=== PATIENT | male | born 1975 | race Caucasian/White ===

== ENCOUNTER 2019-09-23 13:24 | Inpatient (IN) | payer OTHER, SELFPAY ==
[2019-09-23] VITALS (8 sets, daily range): BP systolic 107–169; BP diastolic 88–104; PULSE 107–118; RESP 18–20; TEMP 36.8–37.8; O2SAT 94–99; BMI 30.3
--- NOTE | ~2019-09-23 | XR_ITS ---
EXAMINATION: XR chest 2V EXAM DATE: 09/23/2019 14:38 INDICATION: Shortness of breath. Mid chest pain. TECHNIQUE: Frontal and lateral projections of the chest obtained and reviewed. Comparison is made to prior examination from 04/25/2018. FINDINGS: The lungs are clear. There are no pleural effusions. The cardiomediastinal silhouette is within normal limits. There is no pneumothorax suspected. The bones and soft tissues are unremarkab le. IMPRESSION: No acute cardiopulmonary findings. Reviewed, dictated and finalized at location A.
--- NOTE | ~2019-09-23 | CT_ITS ---
EXAMINATION: CTA chest PE abdomen pel DATE: 09/23/2019 18:59 INDICATION: Epigastric abdominal pain TECHNIQUE: Computed tomography angiography (CTA) of the chest was performed with 100 mL Omnipaque-350 intravenous contrast timed to evaluate the pulmonary arteries. Subsequent postcontrast images of the abdomen and pelvis are obtained. Of note, the chest was scanned twice for evaluation of the pulmonar y arteries. Coronal maximum intensity projection 3D-reconstructions were created by the technologist. The dose-length product (DLP) was 1953.87 mGy-cm. Automated exposure control and iterative reconstru ction technique were employed. COMPARISON: None. FINDINGS: CTA CHEST: The pulmonary arteries are moderately well opacified. No pulmonary embolism is identified. The lungs are free of acute opacities. There is no pleural effusion or pneumothorax. No pathological ly enlarged thoracic lymph nodes are identified. The heart size is normal. ABDOMEN/PELVIS CT: The liver is diffusely low in attenuation when compared with the spleen, consisten t with hepatic steatosis. The spleen, pancreas, gallbladder, and adrenal glands are normal. The kidne ys are unremarkable. No pathologically enlarged abdominal or pelvic lymph nodes are identified. There is no free intraperitoneal gas or evidence of bowel obstruction. The appendix is normal. IMPRESSION: 1. No evidence of pulmonary embolism or acute cardiopulmonary abnormality. 2. Diffuse hepatic steatosis. No CT correlate for epigastric abdominal pain. Reviewed, dictated and finalized at location A.
--- NOTE | 2019-09-23 13:33 | ECG_ITS ---
Measurements Intervals [place] Rate: 109 P: 38 WA: 154 QRS: -41 QRSD: 89 T: 24 QT: 336 QTc: 453 Interpretive Statements SINUS TACHYCARDIA BORDERLINE R WAVE PROGRESSION, ANTERIOR LEADS INFERIOR INFARCT, AGE INDETERMINATE BASELINE WANDER- AVR, AVF, V1-V2 ABNORMAL ECG Electronically Signed On 09-23-2019 14:12:38 CDT by Tyler Roger D.O.
[2019-09-23 13:57] LABS: Basophils Percent Auto 0.2 % (0.2-1.2); Hematocrit 44.9 % (42.0-52.0); Hemoglobin 15.8 g/dL (14.0-18.0); Immature Granulocyte Absolute 0.06 K/mm3 (0.00-0.031); Immature Granulocyte Percent A 0.4 % (0-0.5); Immature Platelet Fraction Pct 3.6 % (0.9-11.2); Lymphocytes Absolute Auto 0.57 K/mm3 (0.9-3.2); Lymphocytes Percent Auto 4.1 % (18.3-44.2); Mean Corpuscular HGB Conc 35.2 g/dl (32-36); Mean Corpuscular Hemoglobin 31.4 pg (26-34); Mean Corpuscular Volume 89.3 fl (80-100); Mean Platelet Volume 8.8 fl (7.4-10.4); Monocytes Absolute Auto 1.7 K/mm3 (0.1-0.6); Monocytes Percent Auto 12.3 % (2.6-8.5); Neutrophils Absolute Auto 11.4 K/mm3 (1.3-6.7); Platelet Count Result 61 k/mm3 (150-375); Red Blood Count 5.03 M/mm3 (4.6-6.20); Red Cell Distribution Width 14.4 % (11.5-14.5); White Blood Count 13.8 K/mm3 (4.5-10.0)
[2019-09-23 14:06] LABS: Partial Thromboplastin Time 23.9 SECONDS (22.3-36.8); Prothrombin Time 12.8 Seconds (11.1-14.7)
[2019-09-23 14:12] LABS: Blood Urea Nitrogen 8 mg/dL (9-20); Calcium 9.1 mg/dL (8.4-10.2); Carbon Dioxide 29 mmol/L (22-30); Chloride 90 mmol/L (98-107); Estimated CRCL calculation 149 ml/min; Estimated Glomerular Filt Rate > 60; Glucose 153 mg/dL (75-110); Sodium 133 mmol/L (137-145)
[2019-09-23 14:24] LABS: Troponin I < 0.012 ng/mL (0.000-0.034)
--- NOTE | 2019-09-23 17:41 | ED.CHESTPAIN ---
HPI - Chest Pain General Chief Complaint: Chest Pain <Pepper Guallpa MD - Last Filed: 09/28/19 06:58> Stated Complaint: chest pain, hand cramps <Pepper Guallpa MD - Last Filed: 09/28/19 06:58> Time Seen by Provider: 09/23/19 17:29 <Pepper Guallpa MD - Last Filed: 09/28/19 06:58> Source: patient <Pepper Guallpa MD - Last Filed: 09/28/19 06:58> Mode of arrival: ambulatory <Pepper Guallpa MD - Last Filed: 09/28/19 06:58> Limitations: no limitations <Pepper Guallpa MD - Last Filed: 09/28/19 06:58> History of Present Illness HPI narrative: This patient is a 43 year old male with history of anxiety, hypertension and alcohol abuse who presents for evaluation chest pain. Patient states last night around midnight he develop substernal chest pain. He states this pain has been constant, and he also is having tremors and cramping to his arms. He also reports nausea, vomiting and diarrhea. He has intermittent sob. He denies cough or fever. He admits to drinking heavily and he last drank alcohol this morning. He has history of binging and quitting. He started drinking heavily again in the beginning of the month but he recently started trying to wean himself off. <Pepper Guallpa MD - Last Filed: 09/28/19 06:58> MD complaint: chest pain <Pepper Guallpa MD - Last Filed: 09/28/19 06:58> Onset (ago): hour(s) (17) <Pepper Guallpa MD - Last Filed: 09/28/19 06:58> Timing of current episode: constant <Pepper Guallpa MD - Last Filed: 09/28/19 06:58> Pain location: substernal <Pepper Guallpa MD - Last Filed: 09/28/19 06:58> Pain radiation: none <Pepper Guallpa MD - Last Filed: 09/28/19 06:58> Related Data Allergies/Adverse Reactions: Allergies Allergy/AdvReac Type Severity Reaction Status Date / Time latex Allergy Intermediate Rash Verified 02/09/18 10:27 <Pepper Guallpa MD - Last Filed: 09/28/19 06:58> Review of Systems Review of Systems: All systems reviewed & are unremarkable except as noted in HPI and below <Pepper Guallpa MD - Last Filed: 09/28/19 06:58> Constitutional: Constitutional: Denies chills, Reports fatigue and Denies fever(s) <Pepper Guallpa MD - Last Filed: 09/28/19 06:58> ENT: Reports sore throat <Pepper Guallpa MD - Last Filed: 09/28/19 06:58> Cardiovascular: Cardiovascular: Reports chest pain <Pepper Guallpa MD - Last Filed: 09/28/19 06:58> Respiratory: Respiratory: Denies cough, Reports dyspnea and Denies wheezing <Pepper Guallpa MD - Last Filed: 09/28/19 06:58> Gastrointestinal: Gastrointestinal: Reports abdominal pain, Denies diarrhea, Reports nausea and Reports vomiting <Pepper Guallpa MD - Last Filed: 09/28/19 06:58> Psychiatric: Psychiatric: Reports anxiety <Pepper Guallpa MD - Last Filed: 09/28/19 06:58> Endocrine: Endocrine: Reports fatigue <Pepper Guallpa MD - Last Filed: 09/28/19 06:58> [facility] Past Medical History Medical History: Medical History Anxiety Hyperlipidemia Hypertension Lipoma of back <Pepper Guallpa MD - Last Filed: 09/28/19 06:58> Family History Family History: Family History (Updated 09/24/19 @ 08:47 by Bernabe Sheehan MD) Father FH: CABG (coronary artery bypass surgery) <Pepper Guallpa MD - Last Filed: 09/28/19 06:58> Social History Social History: Social History Smoking packs per day: 1 Smoking cigarettes per day: 20.0 Years smoked: 30 Smoking pack-years: 30.00 Smoking status: Current every day smoker Tobacco type: cigarettes Alcohol intake: current Drinks per week: 50 Alcohol use details: daily Substance use: never Gender identity (if verbalized by the patient): Male Spiritual care concerns: No <Pepper Guallpa MD - Last Filed: 09/28/19 06:58> Exam Const:
[2019-09-23 18:01] LABS: Alanine Aminotransferase 96 U/L (4-50); Albumin Level 4.8 g/dL (3.5-5.1); Alkaline Phosphatase 116 U/L (38-126); Aspartate Amino Transferase 102 U/L (17-59); Bilirubin,Total 1.1 mg/dL (0.2-1.3); Lipase 825 U/L (23-300); Magnesium 1.8 mg/dL (1.6-2.3)
[2019-09-23] MEDS: LACTATED RINGERS 1,000 ML 999 ML IV CONT (18:01)
[2019-09-23 18:03] LABS: Ethanol 93 mg/dL (<10)
[2019-09-23 18:16] LABS: Troponin I 0.012 ng/mL (0.000-0.034)
[2019-09-23] MEDS: ASPIRIN 81 MG CHEWABLE TABLET 324 MG PO (18:17)
[2019-09-23 18:25] LABS: Lactic Acid Reflex 1.5 mmol/L (0.7-2.1)
[2019-09-23 18:32] LABS: Add Urine Microscopic? YES; Appearance Urine Clear (Clear); Bilirubin Urine Negative (Negative); Blood Urine 1+ (Negative); Color Urine Yellow (Yellow); Glucose Urine UA Negative (Negative); Ketones Urine 1+ mg/dL (Negative); Leukocyte Esterase Ur Negative LEU/UL (Negative); Nitrate Urine Negative (Negative); Protein Urine 2+ mg/dL (Negative); Specific Grav Ur 1.014 (1.001-1.035); WBC Urine 0-3 /hpf
--- NOTE | 2019-09-23 19:29 | PC.NURSE ---
report taken from nadeem an at this time.
--- NOTE | 2019-09-23 20:10 | PC.NURSE ---
pt reports that he has not had his home meds in a long time states stopped seeing pcp.
--- NOTE | 2019-09-23 20:41 | ECG_ITS ---
Measurements Intervals [place] Rate: 101 P: -27 [place]: 131 QRS: -49 QRSD: 94 T: 7 QT: 358 QTc: 465 Interpretive Statements SINUS TACHYCARDIA LEFT AXIS DEVIATION BORDERLINE R WAVE PROGRESSION, ANTERIOR LEADS BORDERLINE T WAVE ABNORMALITY- INFERIOR LEADS BORDERLINE ECG Electronically Signed On 09-24-2019 10:46:27 CDT by Tyler Roger D.O.
--- NOTE | 2019-09-23 20:43 | PM.IMHP ---
H&P: HPI History of Present Illness Chief complaint: alcohol withdrawal Narrative: This is a 43 year old male who is known to have chronic alcohol abuse and HTN and presented to the hospital with a complaint of midsternal chest pain and withdrawal symptoms including shakiness, anxiety, diaphoresis, and nausea. He admits to drinking 1 pint of hard liquor daily as well as a six pack of beer. His last drink was this morning. He denies any fever, cough, wheeze, sore throat, abdominal pain, dysuria, hematuria, or rectal bleeding. Tonight in the ER the patient has been found to be very shaky and anxious. He was treated with 20 mg of IV valium and still is very shaky and anxious. He denies any visual or auditory hallucinations at this time. The patient was evaluated in the ER tonight and had a CTA chest/abd/pelvis done which demonstrated no evidence of pulmonary embolism or acute cardiopulmonary abnormality and diffuse hepatic steatosis. His first two troponins have been negative and his Lipase came back at 825. The patient verbalized to me that he would like to quit drinking alcohol. No other complaints. Review of Systems Review of Systems: All systems reviewed & are unremarkable except as noted in HPI and below PMFSH Past Medical History Medical History Anxiety Hyperlipidemia Hypertension Lipoma of back Social History Social History Smoking packs per day: 1 Smoking cigarettes per day: 20.0 Years smoked: 30 Smoking pack-years: 30.00 Smoking status: Current every day smoker Tobacco type: cigarettes Alcohol intake: current Drinks per week: 50 Alcohol use details: daily Substance use: never Gender identity (if verbalized by the patient): Male Spiritual care concerns: No Meds Home Medications and Allergies Home Medications Medication Instructions Recorded Confirmed Type No Home Medications 09/23/19 09/23/19 History Allergies Allergy/AdvReac Type Severity Reaction Status Date / Time latex Allergy Intermediate Rash Verified 02/09/18 10:27 Vital Signs Vital Signs - 24 hr 09/23/19 13:30 09/23/19 19:14 09/23/19 20:02 Temperature 37.8 C H Pulse Rate 118 H 111 H 112 H Respiratory Rate 20 20 18 Blood Pressure 149/104 H 169/93 H 156/91 H Pulse Oximetry 97 97 94 Exam Const: General: cooperative, alert, awake, in distress (Visible tremors++ ) moderate and diaphoretic Nutritional Appearance: well nourished Orientation/consciousness: patient oriented x3 HENMT: Head: normal to inspection General nose exam: Normal external nose present Face and sinus: normal facial exam Mouth: Yes Normal oral and palatal mucosa present and Yes oropharynx normal Eyes: Pupils: Equal, round and reactive pupils present EOM: EOMs intact bilaterally Neck: Neck: supple and no JVD Thyroid: thyroid normal Lymphatic: lymphadenopathy not noted Resp: Effort & Inspection: normal respiratory effort Auscultation: clear to auscultation bilaterally Cardio: Rate: regular rate Rhythm: regular rhythm Heart sounds: no murmurs GI: Inspection: normal to inspection Auscultation: normal bowel sounds Skin: General skin exam: normal color and no rashes or lesions noted Neuro: General: patient oriented x3 and other (Visible tremors++ ) Cranial nerves: Yes CN's II-XII intact bilaterally and Yes Equal, round and reactive pupils present Speech: normal speech Motor exam (neuro): 5/5 motor strength present throughout Sensory Exam: normal sensation Extrem: General: normal to inspection and no edema Psych: Mental Status: mental status grossly normal Affect: Anxious affect present H&P: Results Labs Labs: Short CBC 09/23/19 Range/Units 13:45 WBC 13.8 H (4.5-10.0) K/mm3 Hgb 15.8 (14.0-18.0) g/dL Hct 44.9 (42.0-52.0) % Plt Count 61 L D (150-375) k/mm3 BMP 09/23/19 13:45
[2019-09-23 21:18] LABS: Troponin I 0.021 ng/mL (0.000-0.034)
--- NOTE | 2019-09-23 21:54 | ADMGEN ---
This patient, Carmelo Seymour, was admitted to IMU Room 205-02. Patient/family oriented to hospital policies and general routines including ID bracelet, bed and alarms, visiting hours, pain management, procedures, bathroom and other care routines, personal items, smoking policy, room service/diet, and visiting hours. Valuables list has been completed. Information on how to activate the Rapid Response Team has been discussed. Patient/Family are encouraged to report perceived risks to care and to ask questions if they do not understand what they are told or what they should do. REPORT FROM [facility] ARRIVED AT [id number] 09/23/19
[2019-09-23] MEDS: chlordiazePOXIDE 25 MG CAPSULE 50 MG PO (22:12)
[2019-09-23] MEDS: SODIUM CHLORIDE 0.9% IV 1,000 ML 125 ML IV CONT (22:13)
[2019-09-23 23:54] LABS: Glucose Point of Care 115 (65-105)
[2019-09-24] VITALS (15 sets, daily range): BP systolic 134–157; BP diastolic 83–96; PULSE 75–106; RESP 12–20; TEMP 36.4–37.6; O2SAT 97–99
--- NOTE | 2019-09-24 | ECHO_ITS ---
Patient Info Name: Carmelo Seymour Age: 43 years : 1975 Gender: Male Accession #: $[id number]$ Ht: 69 in Wt: 205 lbs BSA: 2.15 m2 HR: 102 bpm BP: 134 / 86 mmHg Heart Rhythm: Sinus Rhythm Technical Quality: Good Exam Date: 09/24/2019 10:16 AM Exam Location: [facility] Card Pulmonary Patient Status: Inpatient Admit Date: 09/23/2019 Stock Order Lister: Glen Izaguirre, MADELIN, RT Exam Type: CA echo doppler color flow Study Info Indications R07.89 - Other chest pain Complete two-dimensional, color flow and Doppler transthoracic echocardiogram is performed. Summary 1. Left ventricular chamber dimension is normal. 2. Left ventricular systolic function is normal, estimated at 60-65%. 3. There is mildly increased left ventricular wall thickness. 4. Left ventricular septal wall motion is normal. 5. The left ventricular diastolic function is grade I diastolic dysfunction. 6. There is mild mitral valve regurgitation. 7. There is mild tricuspid valve regurgitation. Left Ventricle Left ventricular chamber dimension is normal. Left ventricular systolic function is normal, estimated at 60-65%. There is mildly increased left ventricular wall thickness. Left ventricular septal wall motion is normal. The left ventricular diastolic function is grade I diastolic dysfunction. Right Ventricle Right ventricular chamber dimension is normal. Right ventricular systolic function is normal. Left Atria Left atrial chamber dimension is normal. Right Atria Right atrial chamber dimension is normal. Atrial Septum Intact interatrial septum visualized by color flow imaging. Aortic Valve The aortic valve is trileaflet. There is no aortic valve sclerosis. There is no aortic valve stenosis. There is trace aortic valve regurgitation. Pulmonic Valve The pulmonic valve is normal. There is no pulmonic valve stenosis. There is trace pulmonic regurgitation. Mitral Valve The mitral valve has normal leaflets. There is no mitral valve stenosis. There is mild mitral valve regurgitation. Tricuspid Valve The tricuspid valve leaflets are normal. There is no significant tricuspid valve stenosis. There is mild tricuspid valve regurgitation. Pericardium/Pleural The pericardium appears normal. There is no pericardial effusion. Inferior Vena Cava Normal inferior vena cava with >50% collapse upon inspiration consistent with normal right atrial pressure, 5 mmHg. Aorta The aortic root size at the sinus of Valsalva is normal. The prox ascending aorta size is normal. Left Ventricular Outflow Tract Name Value Normal LVOT 2D LVOT Diameter 2.5 cm LVOT Doppler LVOT Peak Gradient 2 mmHg LVOT Mean Gradient 2 mmHg LVOT VTI 15 cm LVOT VTI/AV VTI Ratio 1.2 LVOT Stroke Volume 70 ml LVOT CO 6.8 l/min LVOT CI 3.2 l/min/m2 Pulmonic Valve Name
[2019-09-24] MEDS: chlordiazePOXIDE 25 MG CAPSULE 50 MG PO ×4 (04:16→20:32)
[2019-09-24 04:50] LABS: Basophils Percent Auto 0.2 % (0.2-1.2); Eosinophils Percent Auto 0.2 % (0-4.4); Hematocrit 42.3 % (42.0-52.0); Hemoglobin 14.5 g/dL (14.0-18.0); Immature Granulocyte Absolute 0.08 K/mm3 (0.00-0.031); Immature Granulocyte Percent A 0.7 % (0-0.5); Immature Platelet Fraction Pct 5.2 % (0.9-11.2); Lymphocytes Absolute Auto 0.84 K/mm3 (0.9-3.2); Lymphocytes Percent Auto 7.2 % (18.3-44.2); Mean Corpuscular HGB Conc 34.3 g/dl (32-36); Mean Corpuscular Hemoglobin 31.3 pg (26-34); Mean Corpuscular Volume 91.2 fl (80-100); Mean Platelet Volume 10.3 fl (7.4-10.4); Monocytes Absolute Auto 1.5 K/mm3 (0.1-0.6); Neutrophils Absolute Auto 9.3 K/mm3 (1.3-6.7); Neutrophils Percent Auto 78.7 % (45.5-73.1); Platelet Count Result 51 k/mm3 (150-375); Red Blood Count 4.64 M/mm3 (4.6-6.20); Red Cell Distribution Width 14.6 % (11.5-14.5); White Blood Count 11.7 K/mm3 (4.5-10.0)
[2019-09-24] MEDS: SODIUM CHLORIDE 0.9% IV 1,000 ML 125 ML IV CONT ×3 (05:16→20:32)
[2019-09-24 06:22] LABS: Blood Urea Nitrogen 7 mg/dL (9-20); Calcium 8.4 mg/dL (8.4-10.2); Carbon Dioxide 29 mmol/L (22-30); Chloride 99 mmol/L (98-107); Estimated CRCL calculation 149 ml/min; Estimated Glomerular Filt Rate > 60; Glucose 108 mg/dL (75-110); Potassium 3.1 mmol/L (3.4-5.0); Sodium 135 mmol/L (137-145)
[2019-09-24 08:15] LABS: Glucose Point of Care 103 (65-105)
[2019-09-24] MEDS: THIAMINE HCL 100 MG TABLET PO (08:15)
[2019-09-24] MEDS: POTASSIUM CHLORIDE 20 MEQ TABLET 40 MEQ PO (08:15)
--- NOTE | 2019-09-24 08:28 | PM.CNCAR ---
Assessment and Plan Assessment and plan (1) Chest pain: Qualifiers: Chest pain type: unspecified Qualified Code(s): R07.9 - Chest pain, unspecified Code(s): R07.9 - Chest pain, unspecified Status: Acute Assessment and Plan: 43-year-old male admitted to the hospital with chest pain, abdominal pain, nausea and vomiting in the setting of heavy alcohol abuse. Patient is found to have elevated liver enzymes, and elevated lipase, suggestive of pancreatitis and transaminitis. Chest pain is likely noncardiac in origin, and most likely from patient's acute pancreatitis. His serial troponins are negative, EKG shows sinus tachycardia. -will do echocardiogram with Doppler to assess LV function, wall motion and check for any alcoholic cardiomyopathy -continue to monitor on telemetry -delirium tremens prophylaxis as per primary team (2) Pancreatitis: Qualifiers: Acute pancreatitis complication: no infection or necrosis Chronicity: acute Pancreatitis type: unspecified pancreatitis type Qualified Code(s): K85.90 - Acute pancreatitis without necrosis or infection, unspecified Code(s): K85.90 - Acute pancreatitis without necrosis or infection, unspecified Status: Acute Assessment and Plan: Management as per primary team. Patient was counseled about health and social consequences of alcohol abuse. (3) Alcohol abuse: Code(s): F10.10 - Alcohol abuse, uncomplicated Status: Chronic Assessment and Plan: Counseling was done (4) Tobacco dependence: Code(s): F17.200 - Nicotine dependence, unspecified, uncomplicated Status: Chronic Assessment and Plan: Smoking cessation counseling was done (5) Elevated LFTs: Code(s): R79.89 - Other specified abnormal findings of blood chemistry Status: Acute Assessment and Plan: Elevated liver enzymes are in the setting of alcohol abuse. History of Present Illness History of Present Illness Consult date/time: 09/24/19 08:28 Date of consult-09/24/2019 Reason for consult: Chest pain Requesting physician:Dr Orosco Chief complaint: Chest discomfort HPI: 43-year-old male with hypertension, heavy alcohol abuse, tobacco abuse. Patient was brought to [facility] on 09/23/2019 with complaints of lower substernal chest discomfort, nausea, vomiting. Patient has history of heavy alcohol abuse for last about 25 years. He drank heavily over the weekend, had several episodes of vomiting without hematemesis. Yesterday morning, patient developed lower substernal pain with some radiation to the back. Denied shortness of breath, palpitation, dizziness or syncope. Patient has been feeling shaky and anxious. Patient denies any prior cardiac history including clinical [place], angina, heart failure or any arrhythmias. EKG which I personally evaluated showed sinus tachycardia, heart rate 109 beats per minute; inferior infarct-age undetermined. Serial troponins are negative. Potassium was low at 3.1. Lipase is elevated at 825 suggestion of pancreatitis. AST and ALT elevated at 102 and 92 respectively. Chest x-ray was unremarkable with CT chest, abdomen and pelvis reported No evidence of pulmonary embolism or acute cardiopulmonary abnormality; diffuse hepatic steatosis. On telemetry, patient has been is sinus rhythm/sinus tachycardia. Reason For Visit: alcohol withdrawal Review of Systems Constitutional: Constitutional: Denies chills, Denies fatigue, Denies fever(s) and Denies headache(s) Eyes: Eyes: Reports as per HPI, Denies change in vision, Denies loss of vision and Denies eye pain ENT: Reports as per HPI, Reports Normal hearing present, Denies headache(s), Denies lip swelling, Denies epistaxis and Denies sore throat Cardiovascular: Cardiovascular: Reports as per HPI, Reports chest pain, Denies syncope, Denies irregular heart rhythm, Reports lightheadedness and Reports dyspnea Respiratory: Respiratory: Reports as
[2019-09-24 12:12] LABS: Glucose Point of Care 86 (65-105)
--- NOTE | 2019-09-24 16:48 | PM.IMPN ---
Progress Note: A&P Assessment and Plan (1) Alcohol withdrawal: Qualifiers: Complication of substance-induced condition: uncomplicated Qualified Code(s): F10.230 - Alcohol dependence with withdrawal, uncomplicated Code(s): F10.239 - Alcohol dependence with withdrawal, unspecified Status: Acute Assessment and Plan: Patient tremulous but CIWA not significantly elevated. Currently on Librium scheduled and he does have Ativan available as well for breakthrough symptoms. Continue Thiamine and add Folate. (2) Chest pain: Qualifiers: Chest pain type: unspecified Qualified Code(s): R07.9 - Chest pain, unspecified Code(s): R07.9 - Chest pain, unspecified Status: Acute Assessment and Plan: Probably secondary to acute pancreatitis. Trop negative x 3. EKG shoiwng poor R wave progression. Echo showing Grade i DD and EF 60%. Cardiology following and appreciate their input. (3) Pancreatitis: Qualifiers: Acute pancreatitis complication: no infection or necrosis Chronicity: acute Pancreatitis type: unspecified pancreatitis type Qualified Code(s): K85.90 - Acute pancreatitis without necrosis or infection, unspecified Code(s): K85.90 - Acute pancreatitis without necrosis or infection, unspecified Status: Acute Assessment and Plan: Patient most likely with mild pancreatitis w/ elevated lipase related to his alcoholism. Ct chest/Abd/Pelvis showing normal pancreas . Continue NPO with bowel rest for now. Continue IV hydration. Pain control as needed. (4) Alcohol abuse: Code(s): F10.10 - Alcohol abuse, uncomplicated Status: Chronic Assessment and Plan: The patient verbalized that he wishes to quit drinking alcohol. environmental field services technician have been consulted. Continue Thiamine and add Folate. (5) Hypertension: Qualifiers: Hypertension type: unspecified Qualified Code(s): I10 - Essential (primary) hypertension Code(s): I10 - Essential (primary) hypertension Status: Chronic Assessment and Plan: BP reviewed on 09/24/19. BP mildly elevated but stable. Continue to monitor blood pressure closely. (6) Hyperlipidemia: Qualifiers: Hyperlipidemia type: unspecified Qualified Code(s): E78.5 - Hyperlipidemia, unspecified Code(s): E78.5 - Hyperlipidemia, unspecified Status: Chronic Assessment and Plan: Not on any home medications listed. LFTs elevated. Check lipid panel in the morning (7) Tobacco dependence: Code(s): F17.200 - Nicotine dependence, unspecified, uncomplicated Status: Chronic Assessment and Plan: Patient has been educated about the benefits of smoking cessation. (8) Elevated LFTs: Code(s): R79.89 - Other specified abnormal findings of blood chemistry Status: Acute Assessment and Plan: Suspect related to alcoholic hepatitis +/- from the hepatic steatosis. Levels mildly elevated. Not repeated today but will check tomorrow. Probably contributing to his abd pain. (9) Thrombocytopenia: Code(s): D69.6 - Thrombocytopenia, unspecified Status: Acute Assessment and Plan: Plt count normal last year so suspect plt count low due to toxic effects from the alcohol. Renal function okay. Continue to monitor. Subjective Date/time seen: 09/24/19 16:48 Interval history: 43yo male with alcoholism, HTN and anxiety here for chest pain and found to have hepatitis and pancreatitis. Assuming care. CHart reviewed. Pablon feels shaky. Currently NPO. no hungry though. No n/v since admission. SChest pain occurs with twisting or taking deep breath. He denies trauma or falls. Exam Narrative: Exam Narrative: Tm 100.1 99.7 150/89 88 18 97% ra Gen - NARD sitting at the side of the bed Chest - CTA bilaterally, nml RR CV - RRR S1/S2; telemetry showing no significant dysrhythm
[2019-09-24] MEDS: FOLIC ACID 1 MG TABLET PO (17:31)
[2019-09-24 18:03] LABS: Glucose Point of Care 88 (65-105)
[2019-09-24 23:51] LABS: Glucose Point of Care 81 (65-105)
[2019-09-25] VITALS (12 sets, daily range): BP systolic 142–160; BP diastolic 90–104; PULSE 70–95; RESP 18–22; TEMP 36.4–37.2; O2SAT 94–99
[2019-09-25 04:43] LABS: Hematocrit 42.7 % (42.0-52.0); Hemoglobin 14.3 g/dL (14.0-18.0); Immature Platelet Fraction Pct 6.4 % (0.9-11.2); Mean Corpuscular HGB Conc 33.5 g/dl (32-36); Mean Corpuscular Hemoglobin 31.3 pg (26-34); Mean Corpuscular Volume 93.4 fl (80-100); Mean Platelet Volume 11.1 fl (7.4-10.4); Platelet Count Result 49 k/mm3 (150-375); Red Blood Count 4.57 M/mm3 (4.6-6.20); Red Cell Distribution Width 14.2 % (11.5-14.5)
[2019-09-25 04:57] LABS: Alanine Aminotransferase 62 U/L (4-50); Albumin Level 3.6 g/dL (3.5-5.1); Alkaline Phosphatase 90 U/L (38-126); Aspartate Amino Transferase 67 U/L (17-59); Bilirubin,Total 1.1 mg/dL (0.2-1.3); Blood Urea Nitrogen 8 mg/dL (9-20); Calcium 8.1 mg/dL (8.4-10.2); Carbon Dioxide 25 mmol/L (22-30); Chloride 104 mmol/L (98-107); Cholesterol 166 mg/dL (0-200); Estimated CRCL calculation 149 ml/min; Estimated Glomerular Filt Rate > 60; Glucose 83 mg/dL (75-110); HDL Direct 64 mg/dL; Magnesium 2.2 mg/dL (1.6-2.3); Phosphorus 2.2 mg/dL (2.5-4.5); Potassium 3.2 mmol/L (3.4-5.0); Sodium 139 mmol/L (137-145); Triglycerides 126 mg/dL (<150)
[2019-09-25 05:04] LABS: Lipase 2419 U/L (23-300)
[2019-09-25 05:05] LABS: LDL Cholesterol Direct 73 mg/dL
[2019-09-25 06:02] LABS: Folic Acid > 20.0 ng/mL (2.76->20)
[2019-09-25] MEDS: SODIUM CHLORIDE 0.9% IV 1,000 ML 125 ML IV CONT ×2 (06:09→17:58)
--- NOTE | 2019-09-25 10:22 | PM.IMPN ---
Progress Note: A&P Assessment and Plan (1) Alcohol withdrawal: Qualifiers: Complication of substance-induced condition: uncomplicated Qualified Code(s): F10.230 - Alcohol dependence with withdrawal, uncomplicated Code(s): F10.239 - Alcohol dependence with withdrawal, unspecified Status: Acute Assessment and Plan: Patient symptoms improved. Currently on Librium scheduled and he does have Ativan available as well for breakthrough symptoms. Continue Thiamine and Folate. (2) Chest pain: Qualifiers: Chest pain type: unspecified Qualified Code(s): R07.9 - Chest pain, unspecified Code(s): R07.9 - Chest pain, unspecified Status: Acute Assessment and Plan: Atypical CP probably secondary to acute pancreatitis. Trop negative x 3. EKG showing poor R wave progression. Echo showing Grade I DD and EF 60%. Cardiology following and appreciate their input. (3) Pancreatitis: Qualifiers: Acute pancreatitis complication: no infection or necrosis Chronicity: acute Pancreatitis type: unspecified pancreatitis type Qualified Code(s): K85.90 - Acute pancreatitis without necrosis or infection, unspecified Code(s): K85.90 - Acute pancreatitis without necrosis or infection, unspecified Status: Acute Assessment and Plan: Patient with pancreatitis w/ elevated lipase related to his alcoholism. Ct chest/Abd/Pelvis showing normal pancreas . Lipase up to 2410. Continue IVF. Abd pain better so will add clear liquid diet. (4) Alcohol abuse: Code(s): F10.10 - Alcohol abuse, uncomplicated Status: Chronic Assessment and Plan: The patient verbalized that he wishes to quit drinking alcohol. business services clerk have been consulted. Continue Thiamine and Folate. (5) Hypertension: Qualifiers: Hypertension type: unspecified Qualified Code(s): I10 - Essential (primary) hypertension Code(s): I10 - Essential (primary) hypertension Status: Chronic Assessment and Plan: BP reviewed on 09/25/19. BP mildly elevated but stable. Continue to monitor blood pressure closely. This may improve as his symptoms improve. (6) Hyperlipidemia: Qualifiers: Hyperlipidemia type: unspecified Qualified Code(s): E78.5 - Hyperlipidemia, unspecified Code(s): E78.5 - Hyperlipidemia, unspecified Status: Chronic Assessment and Plan: Not on any home medications listed. LFTs elevated. LDL 73 and HDL 64. (7) Tobacco dependence: Code(s): F17.200 - Nicotine dependence, unspecified, uncomplicated Status: Chronic Assessment and Plan: Patient has been educated about the benefits of smoking cessation. (8) Elevated LFTs: Code(s): R79.89 - Other specified abnormal findings of blood chemistry Status: Acute Assessment and Plan: Suspect related to alcoholic hepatitis +/- from the hepatic steatosis. Coags normal. Levels mildly elevated and improving. Hepatitis probably contributing to his abd pain. (9) Thrombocytopenia: Code(s): D69.6 - Thrombocytopenia, unspecified Status: Acute Assessment and Plan: Plt count normal last year so suspect plt count low due to toxic effects from the alcohol. Renal function okay. Plt count low but stable. Continue to monitor. Subjective Date/time seen: 09/25/19 10:22 Interval history: 43yo male with alcoholism, HTN and anxiety here for chest pain and found to have hepatitis and pancreatitis. patient had restless night last night. His chest pain is down to 3/10. It is positional in nature worse when he twists. No nausea or vomiting. No abdominal pain. Actually feels hungry today. +BM that are loose Exam Narrative: Exam Narrative: AF 148/97 83 22 99% ra Gen - NARD sitting at the side of the bed Chest - decreased BS left base o/w clear. nml RR CV - RRR S1/S2; telemetry elis
[2019-09-25] MEDS: FOLIC ACID 1 MG TABLET PO (11:18)
[2019-09-25] MEDS: POTASSIUM CHLORIDE 20 MEQ TABLET PO (11:18)
[2019-09-25] MEDS: chlordiazePOXIDE 25 MG CAPSULE 50 MG PO ×3 (11:18→19:54)
[2019-09-25] MEDS: THIAMINE HCL 100 MG TABLET PO (11:19)
[2019-09-25] MEDS: POTASSIUM PHOS,M-BASIC-D-BASIC 20 MMOL in SODIUM CHLORIDE 0.9% IV 250 ML 62.5 MMOL IVPB (11:19)
--- NOTE | 2019-09-25 12:19 | PM.PNCARD ---
Progress Note: A&P Assessment and Plan (1) Chest pain: Qualifiers: Chest pain type: unspecified Qualified Code(s): R07.9 - Chest pain, unspecified Code(s): R07.9 - Chest pain, unspecified Status: Acute Assessment and Plan: 43-year-old male admitted to the hospital with chest pain, abdominal pain, nausea and vomiting in the setting of heavy alcohol abuse. Patient is found to have elevated liver enzymes, and elevated lipase, suggestive of pancreatitis and transaminitis. Chest pain is likely noncardiac in origin. Most likely from acute pancreatitis. His serial troponins are negative, EKG showed sinus tachycardia. Echo: Left ventricular chamber dimension is normal. Left ventricular systolic function is normal, estimated at 60-65%. Mildly increased left ventricular wall thickness. Left ventricular septal wall motion is normal. The left ventricular diastolic function is grade I diastolic dysfunction. Mild mitral valve regurgitation. Mild tricuspid valve regurgitation. No further cardiac recommendations. Will arrange follow-up in the office in approximately 8 week's. - (2) Pancreatitis: Qualifiers: Acute pancreatitis complication: no infection or necrosis Chronicity: acute Pancreatitis type: unspecified pancreatitis type Qualified Code(s): K85.90 - Acute pancreatitis without necrosis or infection, unspecified Code(s): K85.90 - Acute pancreatitis without necrosis or infection, unspecified Status: Acute Assessment and Plan: Management as per primary team. (3) Alcohol abuse: Code(s): F10.10 - Alcohol abuse, uncomplicated Status: Chronic Assessment and Plan: Counseling done. Planning on going to an inpatient rehab (4) Tobacco dependence: Code(s): F17.200 - Nicotine dependence, unspecified, uncomplicated Status: Chronic Assessment and Plan: Smoking cessation counseling was done (5) Elevated LFTs: Code(s): R79.89 - Other specified abnormal findings of blood chemistry Status: Acute Assessment and Plan: Elevated liver enzymes are in the setting of alcohol abuse. Additional Plan Cardiology will sign off. See discharge instructions for follow-up Plan discussed with Dr. Ramsay [id number] 09/25/2019 This document was completed by using [employer] speech recognition software, therefore, home visit field care manager variances may occur. Time Spent With Patient Time with patient: less than 15 minutes Subjective Date/time seen: 09/25/19 12:19 Interval history: Follow-up for: chest pain. Found to have pancreatitis and hepatitis. Date of service: 09/25/2019 Subjective: Only has discomfort when he coughs or turns in a certain position. Also notes discomfort with deep breathing. No specific chest discomfort. Notes shortness of breath with exertional activities. Planning on doing an inpatient rehab. He feels that his anxiety is out of control. It has been for a number of years. Review of Systems Constitutional: Constitutional: Denies chills, Denies fatigue, Denies fever(s) and Denies headache(s) Eyes: Eyes: Reports as per HPI, Denies change in vision, Denies loss of vision and Denies eye pain ENT: Reports Normal hearing present, Denies headache(s), Denies lip swelling, Denies epistaxis and Denies sore throat Cardiovascular: Cardiovascular: Reports as per HPI, Reports chest pain ( Atypical), Denies syncope, Denies irregular heart rhythm, Denies lightheadedness and Reports dyspnea Respiratory: Respiratory: Denies cough, Reports dyspnea and Denies wheezing Gastrointestinal: Gastrointestinal: Reports as per HPI, Reports abdominal pain, Denies melena, Denies nausea and Denies vomiting Genitourinary: Genitourinary: Denies hematuria Musculoskeletal: Musculoskeletal
[2019-09-25 12:38] LABS: Glucose Point of Care 79 (65-105)
[2019-09-25] MEDS: METOPROLOL TARTRATE 25 MG TABLET PO (17:59)
[2019-09-25 18:50] LABS: Glucose Point of Care 83 (65-105)
[2019-09-25] MEDS: NICOTINE (*PBKC) 21 MG PATCH 1 PATCH TRANSDERM (18:58)
--- NOTE | 2019-09-25 19:30 | PC.NURSE ---
This patient, Carmelo Seymour Jr., was transferred to [[id number] ] on 09/25/19 at 1930. Personal belongings sent with patient. Belongings list checked and signed with receiving [ ]. Report given to [alexsandra ]. Appropriate documentation sent with patient.
--- NOTE | 2019-09-25 21:12 | PC.NURSE ---
This patient, Carmelo Seymour Jr., was transferred to [facility] on 09/25/19 at 2105. Personal belongings sent with patient. Belongings list checked and signed with receiving. Report given to Mallory OSHEA. Appropriate documentation sent with patient.
--- NOTE | 2019-09-25 21:14 | PC.NURSE ---
This patient, Carmelo Russell Lion Marquez, was received from [U [id number] ] on 09/25/19 at 2104. Personal belongings list checked and signed. Patient/family oriented to unit policies and routines
[2019-09-26] VITALS (12 sets, daily range): BP systolic 133–158; BP diastolic 94–105; PULSE 72–90; RESP 16–20; TEMP 36.4–36.7; O2SAT 98–100
[2019-09-26] MEDS: chlordiazePOXIDE 25 MG CAPSULE 50 MG PO ×4 (02:28→21:24)
[2019-09-26] MEDS: SODIUM CHLORIDE 0.9% IV 1,000 ML 125 ML IV CONT (02:29)
[2019-09-26 02:43] LABS: Glucose Point of Care 101 (65-105)
[2019-09-26 06:03] LABS: Hematocrit 41.3 % (42.0-52.0); Hemoglobin 13.7 g/dL (14.0-18.0); Immature Platelet Fraction Pct 6.7 % (0.9-11.2); Mean Corpuscular HGB Conc 33.2 g/dl (32-36); Mean Corpuscular Hemoglobin 30.8 pg (26-34); Mean Corpuscular Volume 92.8 fl (80-100); Mean Platelet Volume 10.8 fl (7.4-10.4); Platelet Count Result 65 k/mm3 (150-375); Red Blood Count 4.45 M/mm3 (4.6-6.20); Red Cell Distribution Width 14.3 % (11.5-14.5); White Blood Count 8.6 K/mm3 (4.5-10.0)
[2019-09-26 06:14] LABS: Alanine Aminotransferase 54 U/L (4-50); Albumin Level 3.5 g/dL (3.5-5.1); Alkaline Phosphatase 81 U/L (38-126); Anion Gap 10.1 mmol/L (7-16); Aspartate Amino Transferase 49 U/L (17-59); Bilirubin,Total 0.8 mg/dL (0.2-1.3); Blood Urea Nitrogen 7 mg/dL (9-20); Calcium 8.2 mg/dL (8.4-10.2); Carbon Dioxide 25 mmol/L (22-30); Chloride 107 mmol/L (98-107); Estimated CRCL calculation 175 ml/min; Estimated Glomerular Filt Rate > 60; Glucose 114 mg/dL (75-110); Lipase 1904 U/L (23-300); Potassium 3.1 mmol/L (3.4-5.0); Sodium 139 mmol/L (137-145)
[2019-09-26] MEDS: THIAMINE HCL 100 MG TABLET PO (09:10)
[2019-09-26] MEDS: METOPROLOL TARTRATE 25 MG TABLET PO ×2 (09:11→21:24)
[2019-09-26] MEDS: NICOTINE (*PBKC) 21 MG PATCH 1 PATCH TRANSDERM (09:11)
[2019-09-26] MEDS: FOLIC ACID 1 MG TABLET PO (09:11)
--- NOTE | 2019-09-26 11:40 | PM.IMPN ---
Progress Note: A&P Assessment and Plan (1) Alcohol withdrawal: Qualifiers: Complication of substance-induced condition: uncomplicated Qualified Code(s): F10.230 - Alcohol dependence with withdrawal, uncomplicated Code(s): F10.239 - Alcohol dependence with withdrawal, unspecified Status: Acute Assessment and Plan: Patient symptoms improving. Currently on Librium scheduled and he does have Ativan available as well for breakthrough symptoms. Continue Thiamine and Folate. Start Librium wean tomorrow. (2) Chest pain: Qualifiers: Chest pain type: unspecified Qualified Code(s): R07.9 - Chest pain, unspecified Code(s): R07.9 - Chest pain, unspecified Status: Acute Assessment and Plan: Atypical CP probably secondary to acute pancreatitis. Trop negative x 3. EKG showing poor R wave progression. Echo showing Grade I DD and EF 60%. Cardiology were following and appreciate their input. (3) Pancreatitis: Qualifiers: Acute pancreatitis complication: no infection or necrosis Chronicity: acute Pancreatitis type: unspecified pancreatitis type Qualified Code(s): K85.90 - Acute pancreatitis without necrosis or infection, unspecified Code(s): K85.90 - Acute pancreatitis without necrosis or infection, unspecified Status: Acute Assessment and Plan: Patient with pancreatitis w/ elevated lipase related to his alcoholism. CT chest/Abd/Pelvis showing normal pancreas . Lipase up to 2410 but better today. Continue IVF. Tolerating the clear liquid diet so will advance to Full. (4) Alcohol abuse: Code(s): F10.10 - Alcohol abuse, uncomplicated Status: Chronic Assessment and Plan: The patient verbalized that he wishes to quit drinking alcohol. surgical services manager have been consulted. Continue Thiamine and Folate. (5) Hypertension: Qualifiers: Hypertension type: unspecified Qualified Code(s): I10 - Essential (primary) hypertension Code(s): I10 - Essential (primary) hypertension Status: Chronic Assessment and Plan: BP reviewed on 09/26/19. BP mildly elevated at times but stable. Continue to monitor blood pressure closely. This may improve as his symptoms improve. (6) Hyperlipidemia: Qualifiers: Hyperlipidemia type: unspecified Qualified Code(s): E78.5 - Hyperlipidemia, unspecified Code(s): E78.5 - Hyperlipidemia, unspecified Status: Chronic Assessment and Plan: Not on any home medications listed. LFTs elevated. LDL 73 and HDL 64. Medication not required. (7) Tobacco dependence: Code(s): F17.200 - Nicotine dependence, unspecified, uncomplicated Status: Chronic Assessment and Plan: Patient has been educated about the benefits of smoking cessation. (8) Elevated LFTs: Code(s): R79.89 - Other specified abnormal findings of blood chemistry Status: Acute Assessment and Plan: Suspect related to alcoholic hepatitis +/- from the hepatic steatosis. Coags normal. Levels mildly elevated and improving. Hepatitis probably contributing to his abd pain. (9) Thrombocytopenia: Code(s): D69.6 - Thrombocytopenia, unspecified Status: Acute Assessment and Plan: Plt count normal last year so suspect plt count low due to toxic effects from the alcohol. Renal function okay. Platelet count improved today. Continue to monitor. Subjective Date/time seen: 09/26/19 11:40 Interval history: 43yo male with alcoholism, HTN and anxiety here for chest pain and found to have hepatitis and pancreatitis. Patient slept poorly last night because of anxiety. Complains myalgias. He is tolerating the clear liquid diet without nausea or vomiting. Abdominal pain is improved. He does have anxiety generally and has been on Lexapro in the past but is reluctant to resume this at this time. Exam Narrative: Exam
[2019-09-26 11:56] LABS: Glucose Point of Care 74 (65-105)
[2019-09-26] MEDS: POTASSIUM CHLORIDE 20 MEQ TABLET 40 MEQ PO (14:35)
[2019-09-26] MEDS: SODIUM CHLORIDE 0.9% IV 1,000 ML 100 ML IV CONT ×2 (14:40→21:26)
[2019-09-26] MEDS: hydrALAZINE HCL 20 MG/ML VIAL 10 MG IV PUSH (16:47)
[2019-09-27] VITALS (8 sets, daily range): BP systolic 150–158; BP diastolic 91–106; PULSE 76–88; RESP 16–18; TEMP 36.4–36.9; O2SAT 98–100
[2019-09-27] MEDS: chlordiazePOXIDE 25 MG CAPSULE 50 MG PO ×2 (02:36→08:58)
[2019-09-27 06:07] LABS: Hematocrit 42.3 % (42.0-52.0); Mean Corpuscular HGB Conc 33.1 g/dl (32-36); Mean Corpuscular Hemoglobin 31.5 pg (26-34); Mean Corpuscular Volume 95.3 fl (80-100); Mean Platelet Volume 10.6 fl (7.4-10.4); Platelet Count Result 97 k/mm3 (150-375); Red Blood Count 4.44 M/mm3 (4.6-6.20); Red Cell Distribution Width 14.6 % (11.5-14.5); White Blood Count 8.9 K/mm3 (4.5-10.0)
[2019-09-27 06:15] LABS: Albumin Level 3.3 g/dL (3.5-5.1); Anion Gap 9.3 mmol/L (7-16); Calcium 8.5 mg/dL (8.4-10.2); Carbon Dioxide 25 mmol/L (22-30); Chloride 109 mmol/L (98-107); Estimated CRCL calculation 176 ml/min; Estimated Glomerular Filt Rate > 60; Glucose 134 mg/dL (75-110); Lipase 1085 U/L (23-300); Magnesium 1.9 mg/dL (1.6-2.3); Phosphorus 4.1 mg/dL (2.5-4.5); Potassium 3.3 mmol/L (3.4-5.0); Sodium 140 mmol/L (137-145)
[2019-09-27 06:47] LABS: Blood Urea Nitrogen < 2 mg/dL (9-20)
[2019-09-27] MEDS: FOLIC ACID 1 MG TABLET PO (08:52)
[2019-09-27] MEDS: NICOTINE (*PBKC) 21 MG PATCH 1 PATCH TRANSDERM (08:52)
[2019-09-27] MEDS: METOPROLOL TARTRATE 25 MG TABLET PO (08:52)
[2019-09-27] MEDS: THIAMINE HCL 100 MG TABLET PO (08:52)
[2019-09-27] MEDS: chlordiazePOXIDE 25 MG CAPSULE PO ×2 (12:10→17:06)
[2019-09-27] MEDS: amLODIPine BESYLATE 5 MG TABLET PO (13:43)
--- NOTE | 2019-09-27 17:00 | PM.DS ---
DS: Admitting Diagnosis Admitting Diagnosis Admitting Diagnosis: Alcohol dependence with withdrawal, uncomplicated DS: Discharge Diagnosis Discharge Diagnosis (1) Alcohol withdrawal: Qualifiers: Complication of substance-induced condition: uncomplicated Qualified Code(s): F10.230 - Alcohol dependence with withdrawal, uncomplicated Code(s): F10.239 - Alcohol dependence with withdrawal, unspecified Status: Acute Assessment and Plan: Patient presented to the ED with multiple complaints of n/v, diarrhea, chest pain, tremors and hand cramping. He has a hx of binge drinking. Alcohol level 93. It was felt these symptoms may be related to alcohol withdrawal. He was placed on scheduled Librium. CIWA protocol started withAtivan available as well for breakthrough symptoms. Also started on Thiamine and Folate. He remained stable. (2) Chest pain: Qualifiers: Chest pain type: unspecified Qualified Code(s): R07.9 - Chest pain, unspecified Code(s): R07.9 - Chest pain, unspecified Status: Acute Assessment and Plan: Atypical CP symptoms. Trop negative x3. EKG showing no acute changes. Echo ordered showing EF 60-65% with Grade I diastolic dysfunction. CTA of the Ch/A/P showing no PE or acute cardiopulmonary disease. He did have diffuse hepatic steatosis. Colo the chest pain secondary to acute pancreatitis. Cardiology were involved in his care. (3) Pancreatitis: Qualifiers: Acute pancreatitis complication: no infection or necrosis Chronicity: acute Pancreatitis type: unspecified pancreatitis type Qualified Code(s): K85.90 - Acute pancreatitis without necrosis or infection, unspecified Code(s): K85.90 - Acute pancreatitis without necrosis or infection, unspecified Status: Acute Assessment and Plan: Patient with pancreatitis w/ elevated lipase to 24[address] related to his alcoholism. CT chest/Abd/Pelvis showing normal pancreas. Patient made NPO. Lipase trended downward and his abd/chest pain resolved. Clear liquid diet started and slowly advanced. Lipase continued to trend down even with oral intake. Patient feels ready for discharge. He was educated about the need to daty on a low fat diet. (4) Alcohol abuse: Code(s): F10.10 - Alcohol abuse, uncomplicated Status: Chronic Assessment and Plan: The patient verbalized that he wishes to quit drinking alcohol. He was educated about the benefits abstain from alcohol use. web services manager have been consulted. We continued Thiamine and Folate. (5) Hypertension: Qualifiers: Hypertension type: unspecified Qualified Code(s): I10 - Essential (primary) hypertension Code(s): I10 - Essential (primary) hypertension Status: Chronic Assessment and Plan: Blood pressure monitor closely. BP elevated at times. Initially felt related to pain but blood pressure remained elevated. He was started antihypertensive medications with some improvement. (6) Hyperlipidemia: Qualifiers: Hyperlipidemia type: unspecified Qualified Code(s): E78.5 - Hyperlipidemia, unspecified Code(s): E78.5 - Hyperlipidemia, unspecified Status: Chronic Assessment and Plan: Not on any home medications listed. LFTs elevated. LDL 73 and HDL 64. Medication not required. (7) Tobacco dependence: Code(s): F17.200 - Nicotine dependence, unspecified, uncomplicated Status: Chronic Assessment and Plan: Patient has been educated about the benefits of smoking cessation. (8) Elevated LFTs: Code(s): R79.89 - Other specified abnormal findings of blood chemistry Status: Acute Assessment and Plan: Suspect related to alcoholic hepatitis +/- from the hepatic steatosis. Coags normal. Levels mildly elevated and improving. (9) Thrombocytopenia: Code(s): D69.6 - Thrombocytopenia, unspecified
[2019-09-27 18:05] LABS: Hepatitis B Surface Antigen Negative (Negative)
[2019-09-27 18:11] LABS: HAV RESULT Negative (Negative); Hepatitis B Core IgM Result Negative (Negative)
[2019-09-27 18:23] LABS: Hepatitis C Virus Antibody Negative (Negative)
--- NOTE | 2019-10-04 09:50 | PC.NURSE ---
Hep Panel- negative.
== END 2019-09-27 18:20 | disposition home or self-care (01) | DRG 775 ==
LOC: ANHED 20:21 → ANHIMU 20:32 → ANH3MED 09-25 21:13
PROVIDERS: Emergency Medicine; Family Medicine; General Practice; Admitting Provider Internal Medicine; Emergency Provider Emergency Medicine; Visit Provider Internal Medicine
DX: F10.230 Alcohol dependence with withdrawal, uncomplicated (principal); R00.0 Tachycardia, unspecified; F17.210 Nicotine dependence, cigarettes, uncomplicated; I10 Essential (primary) hypertension; E78.5 Hyperlipidemia, unspecified; D69.6 Thrombocytopenia, unspecified; F41.9 Anxiety disorder, unspecified; R07.89 Other chest pain; K70.10 Alcoholic hepatitis without ascites; Y90.4 Blood alcohol level of 80-99 mg/100 ml; K85.20 Alcohol induced acute pancreatitis without necrosis or infection
CPT/HCPCS: 36415; 71046; 71275; 74177; 80048; 80053; 80061; 80069; 80074; 80076; 80307; 81001; 82607; 82746; 83605; 83690; 83735; 84100; 84484; 85025; 85027; 85055; 85610; 85730; 87081; 87880; 93005; 93306; 96361; 96374; 96375; 96376; 99285; A9270; G0378; G0379; J0360; J2060; J3360; J3411; J3475; J7030; J7050; J7120; J7121; Q9967

== ENCOUNTER 2019-11-08 16:04 | Outpatient (CLI) | payer OTHER, SELFPAY ==
--- NOTE | ~2019-11-08 | XR_ITS ---
EXAMINATION: XR shoulder RT min 2V DATE: 11/08/2019 16:29 INDICATION: Right shoulder pain. TECHNIQUE: 4 views of right shoulder were obtained. COMPARISON: Right shoulder radiographs 11/21/2017 FINDINGS: Bone alignment is normal. No fracture. Glenohumeral joint is normal. There is mild acromioc lavicular joint osteoarthritis. IMPRESSION: 1. Mild right acromioclavicular joint osteoarthritis. Reviewed, dictated and finalized at location A.
== END 2019-11-08 16:05 | disposition home or self-care (01) ==
PROVIDERS: PCP Family Medicine; Visit Provider Family Medicine
DX: M19.011 Primary osteoarthritis, right shoulder (principal)
CPT/HCPCS: 73030

== ENCOUNTER 2020-03-10 03:50 | Emergency (ER) | payer OTHER, SELFPAY ==
--- NOTE | ~2020-03-10 | CT_ITS ---
EXAMINATION: CT abdomen pelvis wo con DATE: 03/10/2020 04:34 INDICATION: Epigastric pain TECHNIQUE: Computed tomography (CT) of the abdomen and pelvis was performed without intravenous contr ast. The dose-length product was 776.17 mGy-cm. Automated exposure control and iterative reconstructi on technique were employed. COMPARISON: CT dated 09/23/2019 FINDINGS: Lung bases are unremarkable. Heart size is normal. No significant pleural or pericardial ef fusion. The liver, spleen, pancreas, adrenal glands and kidneys are unremarkable. Gallbladder is pres ent. Nonobstructive bowel gas pattern. Gallbladder is mildly distended without secondary findings to suggest cholecystitis. Nonobstructive b owel gas pattern. No significant vascular abnormality. No lymphadenopathy. Mild levocurvature of the lumbar spine. No acute osseous abnormality. IMPRESSION: 1. Nonspecific distention of the gallbladder without secondary findings to suggest cholecystitis. 2: No acute abdominal abnormality is identified. Reviewed, dictated and finalized at location A. GER PLAN IMPRESSION: 1. Nonspecific distention of the gallbladder without secondary findings to sugg est cholecystitis. 2: No acute abdominal abnormality is identified.
--- NOTE | ~2020-03-10 | XR_ITS ---
EXAMINATION: XR chest 2V 03/10/2020 04:13 INDICATION: Chest pain PROCEDURE: 2 view chest COMPARISON: Comparison to multiple prior studies sequentially, with oldest reviewed study dated 01/04. FINDINGS: The lungs are clear. The cardiomediastinal silhouette is within normal limits. There are no pleural effusions. There is no pneumothorax suspected. IMPRESSION: 1: NO ACUTE CARDIOPULMONARY DISEASE. Reviewed, dictated and finalized at location A. IDENTIAL INVESTIGATOR
[2020-03-10 03:53] VITALS: BP 166/103; PULSE 76; RESP 14; TEMP 37.4; O2SAT 98
--- NOTE | 2020-03-10 03:56 | ECG_ITS ---
Measurements Intervals [place] Rate: 70 P: 68 DC: 151 QRS: -60 QRSD: 97 T: 42 QT: 388 QTc: 420 Interpretive Statements SINUS RHYTHM LEFT ANTERIOR FASCICULAR BLOCK BASELINE ARTIFACT- I, III, AVR, AVL ABNORMAL ECG Electronically Signed On 03-10-2020 6:49:18 TOXICOLOGY SUPERVISOR by Tyler Roger D.O.
[2020-03-10 04:06] LABS: Basophils Absolute Auto 0.1 K/mm3 (0.0-0.1); Basophils Percent Auto 0.5 % (0.2-1.2); Eosinophils Absolute Auto 0.1 K/mm3 (0-0.3); Eosinophils Percent Auto 0.9 % (0-4.4); Hematocrit 48.9 % (42.0-52.0); Hemoglobin 16.9 g/dL (14.0-18.0); Immature Granulocyte Absolute 0.03 K/mm3 (0.00-0.031); Immature Granulocyte Percent A 0.2 % (0-0.5); Lymphocytes Absolute Auto 4.77 K/mm3 (0.9-3.2); Mean Corpuscular HGB Conc 34.6 g/dl (32-36); Mean Corpuscular Hemoglobin 31.9 pg (26-34); Mean Corpuscular Volume 92.3 fl (80-100); Mean Platelet Volume 9.7 fl (7.4-10.4); Monocytes Absolute Auto 1.3 K/mm3 (0.1-0.6); Neutrophils Absolute Auto 6.3 K/mm3 (1.3-6.7); Neutrophils Percent Auto 50.4 % (45.5-73.1); Platelet Count Result 239 k/mm3 (150-375); Red Cell Distribution Width 13.5 % (11.5-14.5); White Blood Count 12.5 K/mm3 (4.5-10.0)
[2020-03-10] MEDS: ASPIRIN 81 MG CHEWABLE TABLET 324 MG PO (04:06)
--- NOTE | 2020-03-10 04:06 | ED.CHESTPAIN ---
HPI - Chest Pain General Chief Complaint: Chest Pain Stated Complaint: chest pain Time Seen by Provider: 03/10/20 04:04 Source: patient Mode of arrival: ambulatory Limitations: no limitations History of Present Illness HPI narrative: Patient is a 44-year-old male complaining of chest pain, substernal, epigastric, 8 out of 10, burning, nonradiating, intermittent, started 3 days ago. Patient denies any shortness of breath, nausea, vomiting or diaphoresis. Patient denies any fever or chills. Patient admits to drinking every day and drank last night approximately half a pint of liquor. Patient states he had similar episodes in the past when he was diagnosed with pancreatitis. Related Data Allergies Allergy/AdvReac Type Severity Reaction Status Date / Time latex Allergy Intermediate Rash Verified 10/01/19 09:39 pantoprazole Allergy Unknown Verified 10/01/19 09:39 Review of Systems Review of Systems: All systems reviewed & are unremarkable except as noted in HPI and below Constitutional: Constitutional: Denies body ache(s), Denies chills, Denies excessive sweating, Denies fatigue, Denies fever(s), Denies headache(s), Denies lethargy, Denies malaise, Denies weakness and Denies weight loss Eyes: Eyes: Denies blurry vision, Denies change in vision and Denies loss of vision ENT: Denies dizziness, Denies ear discharge, Denies headache(s), Denies lip swelling, Denies epistaxis, Denies nasal congestion, Denies neck pain, Denies throat swelling and Denies tongue swelling Cardiovascular: Cardiovascular: Denies diaphoresis, Denies rapid heart rate, Denies edema, Denies irregular heart rhythm, Denies lightheadedness, Denies palpitations, Denies dyspnea and Denies dyspnea on exertion Respiratory: Respiratory: Denies chest congestion, Denies cough, Denies hemoptysis, Denies dyspnea and Denies dyspnea on exertion Gastrointestinal: Gastrointestinal: Denies abdominal pain, Denies melena, Denies hematochezia, Denies diarrhea, Denies nausea, Denies vomiting and Denies hematemesis Musculoskeletal: Musculoskeletal: Denies abnormal gait, Denies deformity, Denies joint swelling, Denies limited range of motion, Denies neck pain and Denies numbness Neurologic: Denies Abnormal speech present, Denies abnormal gait, Denies confusion, Denies dizziness, Denies headache(s), Denies focal weakness, Denies loss of vision, Denies numbness, Denies Other visual disturbances, Denies Sensory deficit (Neuro) and Denies weakness Psychiatric: Psychiatric: Denies confusion, Denies depression, Denies auditory hallucinations, Denies homicidal ideation and Denies suicidal ideation Endocrine: Endocrine: Denies cold intolerance, Denies excessive sweating, Denies fatigue, Denies heat intolerance and Denies palpitations Hematologic/Lymphatic: Hematologic/Lymphatic: Denies easy bleeding and Denies easy bruising Allergic/Immunologic: Allergic/Immunologic: Denies lip swelling, Denies throat swelling and Denies tongue swelling PMFSH Past Medical History Medical History (Updated 03/10/20 @ 05:40 by Matisa Gupta MD) Anxiety Hyperlipidemia Hypertension Lipoma of back Family History Family History (System 10/01/19 @ 09:39 by Marleni Carmichael) Father FH: CABG (coronary artery bypass surgery) Mother Patient's mother is in good health Hypertension Father Diabetes mellitus Hypertension Family history of cardiovascular disease Family history of coronary artery disease Social History Social History (System 10/01/19 @ 09:39 by Marleni Carmichael) Smoking packs per day: 1 Smoking cigarettes per day: 20.0 Years smoked: 30 Smoking pack-years: 30.00 Smoking status: Current every day smoker Tobacco type: cigarettes Second hand tobacco smoke exposure: Yes Smoking end date: 03/06/11 Alcohol intake: current Drinks per week: 50 Substance use: never Gender identity (if verbalized by the patient): Male Spiritual care concerns: No Exam C
[2020-03-10 04:16] LABS: INR 0.9; Prothrombin Time 12.9 Seconds (11.1-14.7)
[2020-03-10 04:17] LABS: Partial Thromboplastin Time 25.5 SECONDS (22.3-36.8)
[2020-03-10] MEDS: SODIUM CHLORIDE 0.9% IV 1,000 ML 999 ML IV CONT (04:24)
[2020-03-10 04:29] LABS: Troponin I < 0.012 ng/mL (0.000-0.034)
[2020-03-10 04:44] LABS: Anion Gap 10 mmol/L (8-16); Blood Urea Nitrogen 12 mg/dL (9-20); Calcium 8.6 mg/dL (8.4-10.2); Carbon Dioxide 27 mmol/L (22-30); Chloride 105 mmol/L (98-107); Estimated CRCL calculation 110 ml/min; Estimated Glomerular Filt Rate > 60; Glucose 151 mg/dL (75-110); Potassium 3.9 mmol/L (3.4-5.0); Sodium 142 mmol/L (137-145)
[2020-03-10] MEDS: NITROGLYCERIN SL 0.4 MG TABLET SUBLINGUAL (05:06)
[2020-03-10 05:16] LABS: Lipase 97 U/L (23-300)
[2020-03-10 05:19] VITALS: BP 112/80; PULSE 79; RESP 16; O2SAT 95
[2020-03-10] MEDS: FAMOTIDINE 20 MG TABLET 40 MG PO (05:39)
[2020-03-10] MEDS: BELLADONNA ALK/PHENOB ELIX 10 ML, MAG HYDROX/ALUMINUM HYD/SIMETH 30 ML, LIDOCAINE HCL 2... PO (05:39)
[2020-03-10 05:40] VITALS: BP 130/84; PULSE 78; RESP 16; O2SAT 98
[2020-03-10 06:02] VITALS: BP 124/89; PULSE 79; RESP 16; O2SAT 97
[2020-03-10 06:27] LABS: Troponin I < 0.012 ng/mL (0.000-0.034)
[2020-03-10 06:49] VITALS: BP 128/73; PULSE 76; RESP 16; TEMP 36.6; O2SAT 98
== END 2020-03-10 06:50 | disposition home or self-care (01) ==
PROVIDERS: Emergency Provider Emergency Medicine; PCP Family Medicine
DX: K29.20 Alcoholic gastritis without bleeding (principal); R07.89 Other chest pain; F17.210 Nicotine dependence, cigarettes, uncomplicated; F41.9 Anxiety disorder, unspecified; E78.5 Hyperlipidemia, unspecified; I10 Essential (primary) hypertension
CPT/HCPCS: 36415; 71046; 74176; 80048; 83690; 84484; 85025; 85610; 85730; 93005; 96360; 99284; A9270; J7030

== ENCOUNTER 2020-03-17 14:42 | Emergency (ER) | payer OTHER, SELFPAY ==
[2020-03-17 14:44] VITALS: BP 149/99; PULSE 110; RESP 20; TEMP 36.5; O2SAT 99
--- NOTE | 2020-03-17 14:48 | ECG_ITS ---
Measurements Intervals [place] Rate: 105 P: 60 VT: 146 QRS: -53 QRSD: 87 T: 55 QT: 325 QTc: 431 Interpretive Statements SINUS TACHYCARDIA LEFT AXIS DEVIATION DELAYED PRECORDIAL R/S TRANSITION INFERIOR INFARCT, AGE INDETERMINATE BASELINE ARTIFACT- I, II, III, AVR, AVL, V1 ABNORMAL ECG Electronically Signed On 03-17-2020 15:16:27 SECURITY ASSESSOR by yTler Roger D.O.
[2020-03-17 15:00] LABS: Basophils Absolute Auto 0.1 K/mm3 (0.0-0.1); Basophils Percent Auto 0.4 % (0.2-1.2); Eosinophils Absolute Auto 0.1 K/mm3 (0-0.3); Eosinophils Percent Auto 0.5 % (0-4.4); Hematocrit 48.1 % (42.0-52.0); Hemoglobin 17.1 g/dL (14.0-18.0); Immature Granulocyte Absolute 0.02 K/mm3 (0.00-0.031); Immature Granulocyte Percent A 0.2 % (0-0.5); Lymphocytes Absolute Auto 3.57 K/mm3 (0.9-3.2); Lymphocytes Percent Auto 32.1 % (18.3-44.2); Mean Corpuscular HGB Conc 35.6 g/dl (32-36); Mean Corpuscular Hemoglobin 31.8 pg (26-34); Mean Corpuscular Volume 89.4 fl (80-100); Mean Platelet Volume 9.5 fl (7.4-10.4); Monocytes Absolute Auto 1.1 K/mm3 (0.1-0.6); Monocytes Percent Auto 9.4 % (2.6-8.5); Neutrophils Absolute Auto 6.4 K/mm3 (1.3-6.7); Neutrophils Percent Auto 57.4 % (45.5-73.1); Platelet Count Result 118 k/mm3 (150-375); Red Blood Count 5.38 M/mm3 (4.6-6.20); Red Cell Distribution Width 13.3 % (11.5-14.5); White Blood Count 11.1 K/mm3 (4.5-10.0)
[2020-03-17 15:12] LABS: Anion Gap 10 mmol/L (8-16); Blood Urea Nitrogen 16 mg/dL (9-20); Calcium 8.3 mg/dL (8.4-10.2); Carbon Dioxide 29 mmol/L (22-30); Chloride 102 mmol/L (98-107); Estimated CRCL calculation 100 ml/min; Estimated Glomerular Filt Rate > 60; Glucose 113 mg/dL (75-110); INR 0.9; Prothrombin Time 12.4 Seconds (11.1-14.7); Sodium 141 mmol/L (137-145)
[2020-03-17 15:13] LABS: Partial Thromboplastin Time 24.1 SECONDS (22.3-36.8)
[2020-03-17 15:23] LABS: Troponin I < 0.012 ng/mL (0.000-0.034)
--- NOTE | 2020-03-17 15:35 | PC.NURSE ---
pt came up to desk requesting to remove his IV - pt has friend down the road will take him home. Removed IV.
== END 2020-03-17 15:38 | disposition left against medical advice (07) ==
LOC: ANHED 15:59
PROVIDERS: Emergency Provider Emergency Medicine; PCP Family Medicine
DX: R07.9 Chest pain, unspecified (principal)
CPT/HCPCS: 36415; 80048; 84484; 85025; 85610; 85730; 93005; 99199

== ENCOUNTER 2020-05-13 05:07 | Emergency (ER) | payer OTHER, SELFPAY ==
[2020-05-13] VITALS (9 sets, daily range): BP systolic 117–171; BP diastolic 80–101; PULSE 74–116; RESP 10–19; TEMP 36.6; O2SAT 94–100
--- NOTE | 2020-05-13 05:28 | ECG_ITS ---
Measurements Intervals [place] Rate: 99 P: 26 OK: 148 QRS: -48 QRSD: 87 T: 30 QT: 356 QTc: 457 Interpretive Statements SINUS RHYTHM LEFT ANTERIOR FASCICULAR BLOCK ABNORMAL ECG Electronically Signed On 05-13-2020 7:02:22 CUT OUT WORKER by Tyler Roger D.O.
--- NOTE | 2020-05-13 05:34 | ED.ANXIETY ---
HPI - Anxiety General Chief Complaint: Anxiety <Madhu Culp MD - Last Filed: 05/14/20 04:01> Stated Complaint: sob & Anxiety <Madhu Culp MD - Last Filed: 05/14/20 04:01> History of Present Illness HPI narrative: Awoke from sleep early this morning shaking and twitching. He feels nauseated and can't turn off his brain. He says that this is his usual anxiety. His symptoms have been increasing recently. He says that he is supposed to be on a few medications for anxiety as well as BP medication. He has not bee takng any of it. He drinks 1-2 pints of liquor daily. Last drink around 2 AM. <Madhu Culp MD - Last Filed: 05/14/20 04:01> Related Data Allergies/Adverse Reactions: Allergies Allergy/AdvReac Type Severity Reaction Status Date / Time latex Allergy Intermediate Rash Verified 05/13/20 05:30 pantoprazole Allergy Unknown Rash Verified 05/13/20 05:30 <Madhu Culp MD - Last Filed: 05/14/20 04:01> Review of Systems Review of Systems: All systems reviewed & are unremarkable except as noted in HPI and below <Madhu Culp MD - Last Filed: 05/14/20 04:01> Constitutional: Constitutional: Denies chills and Denies fever(s) <Madhu Culp MD - Last Filed: 05/14/20 04:01> Eyes: Eyes: Reports no additional eye complaints <Madhu Culp MD - Last Filed: 05/14/20 04:01> Cardiovascular: Cardiovascular: Denies chest pain <Madhu Culp MD - Last Filed: 05/14/20 04:01> Respiratory: Respiratory: Reports dyspnea <Madhu Culp MD - Last Filed: 05/14/20 04:01> Gastrointestinal: Gastrointestinal: Reports nausea <Madhu Culp MD - Last Filed: 05/14/20 04:01> Neurologic: Reports dizziness <Madhu Culp MD - Last Filed: 05/14/20 04:01> Psychiatric: Psychiatric: Reports anxiety <Maduh Culp MD - Last Filed: 05/14/20 04:01> [facility] Past Medical History Medical History: Medical History (Updated 05/14/20 @ 00:00 by Background Dwaine) Anxiety Hyperlipidemia Hypertension Lipoma of back <Madhu Culp MD - Last Filed: 05/14/20 04:01> Family History Family History: Family History Father FH: CABG (coronary artery bypass surgery) Mother Patient's mother is in good health Hypertension Father Diabetes mellitus Hypertension Family history of cardiovascular disease Family history of coronary artery disease <Madhu Culp MD - Last Filed: 05/14/20 04:01> Social History Social History: Social History Smoking packs per day: 1 Smoking cigarettes per day: 20.0 Years smoked: 30 Smoking pack-years: 30.00 Smoking status: Current every day smoker Tobacco type: cigarettes Second hand tobacco smoke exposure: Yes Smoking end date: 03/06/11 Alcohol intake: current Drinks per week: 50 Substance use: never Gender identity (if verbalized by the patient): Male Spiritual care concerns: No <Madhu Culp MD - Last Filed: 05/14/20 04:01> Exam Const: General: no acute distress, alert and ill appearing <Madhu Culp MD - Last Filed: 05/14/20 04:01> Orientation/consciousness: patient oriented x3 <Madhu Culp MD - Last Filed: 05/14/20 04:01> HENMT: Head: normal to inspection <Madhu Culp MD - Last Filed: 05/14/20 04:01> Mouth: Yes dry mucous membranes <Madhu Culp MD - Last Filed: 05/14/20 04:01> Eyes: Pupils: Equal, round and reactive pupils present <Madhu Culp MD - Last Filed: 05/14/20 04:01> EOM: EOMs intact bilaterally <Madhu Culp MD - Last Filed: 05/14/20 04:01> Neck: Neck: normal visual inspection <Madhu Culp MD - Last Filed: 05/14/20 04:01> Resp: Effort & Inspection: normal respiratory effort <Madhu Culp MD - Last Filed: 05/14/20 04:01> Auscultation: clear to auscultation prashanth
[2020-05-13] MEDS: SODIUM CHLORIDE 0.9% IV 1,000 ML 999 ML IV CONT ×2 (05:49→09:40)
[2020-05-13] MEDS: LORazepam INJ (*CRX) 2 MG/ML VIAL 1 MG IV PUSH (05:49)
[2020-05-13 06:05] LABS: Basophils Percent Auto 0.6 % (0.2-1.2); Eosinophils Absolute Auto 0.1 K/mm3 (0-0.3); Eosinophils Percent Auto 0.8 % (0-4.4); Hematocrit 43.7 % (42.0-52.0); Hemoglobin 14.8 g/dL (14.0-18.0); Immature Granulocyte Absolute 0.02 K/mm3 (0.00-0.031); Immature Granulocyte Percent A 0.3 % (0-0.5); Immature Platelet Fraction Pct 4.4 % (0.9-11.2); Lymphocytes Absolute Auto 1.85 K/mm3 (0.9-3.2); Lymphocytes Percent Auto 25.7 % (18.3-44.2); Mean Corpuscular HGB Conc 33.9 g/dl (32-36); Mean Corpuscular Volume 94.4 fl (80-100); Mean Platelet Volume 9.6 fl (7.4-10.4); Monocytes Absolute Auto 0.9 K/mm3 (0.1-0.6); Monocytes Percent Auto 12.5 % (2.6-8.5); Neutrophils Absolute Auto 4.3 K/mm3 (1.3-6.7); Neutrophils Percent Auto 60.1 % (45.5-73.1); Platelet Count Result 77 k/mm3 (150-375); Red Blood Count 4.63 M/mm3 (4.6-6.20); Red Cell Distribution Width 15.3 % (11.5-14.5); White Blood Count 7.2 K/mm3 (4.5-10.0)
[2020-05-13 06:15] LABS: Alanine Aminotransferase 32 U/L (4-50); Alkaline Phosphatase 61 U/L (38-126); Anion Gap 9 mmol/L (8-16); Aspartate Amino Transferase 57 U/L (17-59); Bilirubin,Total 0.5 mg/dL (0.2-1.3); Blood Urea Nitrogen 14 mg/dL (9-20); Calcium 8.1 mg/dL (8.4-10.2); Carbon Dioxide 28 mmol/L (22-30); Chloride 108 mmol/L (98-107); Estimated Glomerular Filt Rate > 60; Glucose 106 mg/dL (75-110); Potassium 3.6 mmol/L (3.4-5.0); Sodium 145 mmol/L (137-145)
[2020-05-13 06:17] LABS: Ethanol 260 mg/dL (<10)
[2020-05-13 06:30] LABS: Add Urine Microscopic? YES; Appearance Urine Cloudy (Clear); Bilirubin Urine Negative (Negative); Blood Urine Negative (Negative); Color Urine Yellow (Yellow); Glucose Urine UA Negative (Negative); Ketones Urine Trace mg/dL (Negative); Leukocyte Esterase Ur Negative LEU/UL (Negative); Mucus Urine Rare /lpf; Nitrate Urine Negative (Negative); Protein Urine 2+ mg/dL (Negative); WBC Urine 0-3 /hpf
[2020-05-13 06:41] LABS: Amphetamine Screen Urine Negative (Negative); Barbiturate Screen Urine Negative (Negative); Benzodiazepines Screen Urine Negative (Negative); Cannabinoid Screen Urine Negative (Negative); Cocaine Screen Urine Negative (Negative); Methadone Screen Urine Negative (Negative); Opiate Screen Urine Positive (Negative); Phencyclidine Screen Urine Negative (Negative)
[2020-05-13] MEDS: ONDANSETRON INJ 4 MG/2 ML VIAL IV PUSH (09:42)
== END 2020-05-13 11:20 | disposition home or self-care (01) ==
PROVIDERS: Emergency Provider Emergency Medicine; PCP Family Medicine
DX: F10.129 Alcohol abuse with intoxication, unspecified (principal); Y90.0 Blood alcohol level of less than 20 mg/100 ml; F17.210 Nicotine dependence, cigarettes, uncomplicated; I10 Essential (primary) hypertension; E78.5 Hyperlipidemia, unspecified; F41.9 Anxiety disorder, unspecified
CPT/HCPCS: 36415; 80053; 80307; 81001; 84443; 85025; 85055; 93005; 96361; 96374; 96375; 99284; J2060; J2405; J7030

== ENCOUNTER 2020-05-18 05:28 | Emergency (ER) | payer OTHER, SELFPAY ==
[2020-05-18] VITALS (10 sets, daily range): BP systolic 142–164; BP diastolic 74–123; PULSE 77–98; RESP 10–19; TEMP 36.9; O2SAT 90–99
--- NOTE | 2020-05-18 05:56 | ED.GENADULT ---
HPI - General Adult General Chief complaint: Anxiety Stated complaint: drank whiskey now anxious Time Seen by Provider: 05/18/20 05:31 History of Present Illness HPI narrative: Patient is a 44-year-old gentleman who presents to the emergency department with chief complaint of anxiety. The patient reports that he has been under a lot of stress lately and he is currently on BuSpar. Patient states that he drinks a fair amount of alcohol and tonight drink a little bit more than he normally does he normally drinks about a pint whenever he is drinking and tonight he drank 1/5 of whiskey. The patient states that he went to sleep and then woke up extremely anxious and feels as though the world is caving in on him. The patient denies suicidal or homicidal ideation. Related Data Allergies Allergy/AdvReac Type Severity Reaction Status Date / Time latex Allergy Intermediate Rash Verified 05/13/20 05:30 pantoprazole Allergy Unknown Rash Verified 05/13/20 05:30 Review of Systems Review of Systems: Narrative: A 10 system review of systems was completed on the patient and is negative except for what is stated in the HPI. Nursing and ancillary documentation was reviewed. [facility] Past Medical History Medical History (Updated 05/18/20 @ 06:33 by Daryl Heath MD) Anxiety Hyperlipidemia Hypertension Lipoma of back Family History Family History Father FH: CABG (coronary artery bypass surgery) Mother Patient's mother is in good health Hypertension Father Diabetes mellitus Hypertension Family history of cardiovascular disease Family history of coronary artery disease Social History Social History Smoking packs per day: 1 Smoking cigarettes per day: 20.0 Years smoked: 30 Smoking pack-years: 30.00 Smoking status: Current every day smoker Tobacco type: cigarettes Second hand tobacco smoke exposure: Yes Smoking end date: 03/06/11 Alcohol intake: current Drinks per week: 50 Substance use: never Gender identity (if verbalized by the patient): Male Spiritual care concerns: No Exam Narrative: Exam Narrative: GENERAL: Well-appearing, well-nourished, and in no acute distress. HEAD: Normocephalic, atraumatic. EYES: PERRLA and EOMI. ENT: Nares clear, no rhinorrhea or epistaxis. Mucous membranes moist. NECK: Supple. CHEST: Clear to auscultation. No respiratory distress. HEART: Regular rate and rhythm. No murmur heard. Normal peripheral pulses. ABDOMEN: Soft, nontender, nondistended, normal active bowel sounds. EXTREMITIES: Normal range of motion. No edema. SKIN: Warm, dry, no rash. NEURO: No focal deficits. Alert and oriented x3. PSYCH: Anxious denies suicidal or homicidal ideation Course Vital Signs Vital signs: Vital Signs Temperature 36.9 C 05/18/20 05:28 Pulse Rate 98 05/18/20 05:28 Respiratory Rate 16 05/18/20 05:28 Blood Pressure 164/123 H 05/18/20 05:28 Pulse Oximetry 98 05/18/20 05:28 Temperature 36.9 C 05/18/20 05:28 Pulse Rate 87 05/18/20 05:53 Respiratory Rate 11 L 05/18/20 05:53 Blood Pressure 142/74 H 05/18/20 05:53 Pulse Oximetry 94 05/18/20 05:53 Medical Decision Making Vital Signs Vital Signs: Vital Signs Temperature 36.9 C 05/18/20 05:28 Pulse Rate 98 05/18/20 05:28 Respiratory Rate 16 05/18/20 05:28 Blood Pressure 164/123 H 05/18/20 05:28 Pulse Oximetry 98 05/18/20 05:28 Temperature 36.9 C 05/18/20 05:28 Pulse Rate 87 05/18/20 05:53 Respiratory Rate 11 L 05/18/20 05:53 Blood Pressure 142/74 H 05/18/20 05:53 Pulse Oximetry 94 05/18/20 05:53 Discharge Plan Discharge Clinical Impression: Alcohol abuse, Anxiety Patient Disposition: Home, Self-Care Condition: Stable Instructions: Antibiotic Form, Abuse of Alcohol (ED), Anxiety (ED) Prescriptions: New
[2020-05-18] MEDS: LORazepam (*CRX) 1 MG TABLET PO ×2 (05:58→06:46)
[2020-05-18] MEDS: BELLADONNA ALK/PHENOB ELIX 10 ML, MAG HYDROX/ALUMINUM HYD/SIMETH 30 ML, LIDOCAINE HCL 2... PO (06:35)
== END 2020-05-18 07:13 | disposition home or self-care (01) ==
PROVIDERS: Emergency Provider Emergency Medicine; PCP Family Medicine
DX: F41.9 Anxiety disorder, unspecified (principal); F10.10 Alcohol abuse, uncomplicated; E78.5 Hyperlipidemia, unspecified; I10 Essential (primary) hypertension
CPT/HCPCS: 99283; A9270

== ENCOUNTER 2020-05-21 22:05 | Emergency (ER) | payer OTHER, SELFPAY ==
[2020-05-21 22:07] VITALS: BP 140/94; PULSE 95; RESP 16; TEMP 36.2; O2SAT 97
--- NOTE | 2020-05-21 22:23 | ED.GENADULT ---
HPI - General Adult General Chief complaint: Unspecified Stated complaint: trouble swallowing Time Seen by Provider: 05/21/20 22:09 Source: patient Mode of arrival: ambulatory Limitations: no limitations History of Present Illness HPI narrative: Patient is a 44-year-old male who returns to emergency department after being evaluated a few days ago for anxiety patient has history of longstanding anxiety and alcohol abuse patient notes his last drink was a day ago. Patient on arrival tonight notes increasing anxiety was brought to the emergency department by family who lives with. Patient takes BuSpar for anxiety. Patient is followed by Dr. Pond. Patient has not discussed his recent increase in anxiety and alcohol abuse with Dr. Pond. Patient has tried AA and other alcohol cessation attempts in the past with no success. Patient on arrival is anxious appearing. Patient notes tonight he felt like he was having trouble swallowing and became increasingly anxious. Patient denies rectal bleeding melena hematemesis vomiting diarrhea URI symptoms or other complaints Related Data Allergies Allergy/AdvReac Type Severity Reaction Status Date / Time latex Allergy Intermediate Rash Verified 05/13/20 05:30 pantoprazole Allergy Unknown Rash Verified 05/13/20 05:30 Review of Systems Review of Systems: All systems reviewed & are unremarkable except as noted in HPI and below PMFSH Past Medical History Medical History (Updated 05/22/20 @ 00:02 by Adrián Meraz PA-C) Anxiety Hyperlipidemia Hypertension Lipoma of back Family History Family History Father FH: CABG (coronary artery bypass surgery) Mother Patient's mother is in good health Hypertension Father Diabetes mellitus Hypertension Family history of cardiovascular disease Family history of coronary artery disease Social History Social History Smoking packs per day: 1 Smoking cigarettes per day: 20.0 Years smoked: 30 Smoking pack-years: 30.00 Smoking status: Current every day smoker Tobacco type: cigarettes Second hand tobacco smoke exposure: Yes Smoking end date: 03/06/11 Alcohol intake: current Drinks per week: 50 Substance use: never Gender identity (if verbalized by the patient): Male Spiritual care concerns: No Exam Narrative: Exam Narrative: GENERAL: Well-appearing, well-nourished, and in no acute distress. HEAD: Normocephalic, atraumatic. EYES: PERRLA and EOMI. ENT: Nares clear, no rhinorrhea or epistaxis. Mucous membranes moist. CHEST: Clear to auscultation. No respiratory distress. No wheezes rales or rhonchi HEART: Regular rate and rhythm. No murmur heard. Normal peripheral pulses. ABDOMEN: Soft, nontender, nondistended. EXTREMITIES: Normal range of motion. No edema. SKIN: Warm, dry, no rash. NEURO: No focal deficits. Alert and oriented x3. PSYCH: Acutely anxious Course Course Emergency Course: Patient presented with acute anxiety evaluated given medications with improvement will follow with primary care tomorrow to set up for reevaluation and discussion of his anxiety. Patient hemodynamically stable no distress. Vital Signs Vital signs: Vital Signs Temperature 97.1 F L 05/21/20 22:07 Pulse Rate 95 05/21/20 22:07 Respiratory Rate 16 05/21/20 22:07 Blood Pressure 140/94 H 05/21/20 22:07 Pulse Oximetry 97 05/21/20 22:07 Temperature 97.1 F L 05/21/20 22:07 Pulse Rate 95 05/21/20 22:07 Respiratory Rate 16 05/21/20 22:07 Blood Pressure 140/94 H 05/21/20 22:07 Pulse Oximetry 97 05/21/20 22:07 Medical Decision Making [facility] Narrative Medical decision making narrative: Patient in the room no distress aware of case findings treatment plan diagnosis agreeing to follow with his primary care tomorrow ABCs and vital signs intact and stable no high risk changes on the blood
[2020-05-21] MEDS: LORazepam INJ (*CRX) 2 MG/ML VIAL 1 MG IV PUSH (22:28)
[2020-05-21] MEDS: FAMOTIDINE 20 MG/2 ML VIAL IV PUSH (22:28)
[2020-05-21] MEDS: LACTATED RINGERS 1,000 ML 999 ML IV CONT (22:29)
[2020-05-21 22:39] LABS: Basophils Absolute Auto 0.1 K/mm3 (0.0-0.1); Basophils Percent Auto 0.4 % (0.2-1.2); Eosinophils Absolute Auto 0.1 K/mm3 (0-0.3); Eosinophils Percent Auto 0.6 % (0-4.4); Hematocrit 41.6 % (42.0-52.0); Hemoglobin 14.5 g/dL (14.0-18.0); Immature Granulocyte Absolute 0.09 K/mm3 (0.00-0.031); Immature Granulocyte Percent A 0.7 % (0-0.5); Lymphocytes Absolute Auto 2.38 K/mm3 (0.9-3.2); Lymphocytes Percent Auto 18.1 % (18.3-44.2); Mean Corpuscular HGB Conc 34.9 g/dl (32-36); Mean Corpuscular Hemoglobin 32.8 pg (26-34); Mean Corpuscular Volume 94.1 fl (80-100); Mean Platelet Volume 10.9 fl (7.4-10.4); Monocytes Absolute Auto 1.7 K/mm3 (0.1-0.6); Monocytes Percent Auto 12.9 % (2.6-8.5); Neutrophils Absolute Auto 8.8 K/mm3 (1.3-6.7); Neutrophils Percent Auto 67.3 % (45.5-73.1); Platelet Count Result 75 k/mm3 (150-375); Red Blood Count 4.42 M/mm3 (4.6-6.20); Red Cell Distribution Width 15.3 % (11.5-14.5); White Blood Count 13.1 K/mm3 (4.5-10.0)
[2020-05-21 22:52] LABS: Alanine Aminotransferase 46 U/L (4-50); Albumin Level 4.3 g/dL (3.5-5.1); Alkaline Phosphatase 77 U/L (38-126); Anion Gap 6 mmol/L (8-16); Aspartate Amino Transferase 61 U/L (17-59); Bilirubin,Total 1.3 mg/dL (0.2-1.3); Blood Urea Nitrogen 18 mg/dL (9-20); Calcium 8.8 mg/dL (8.4-10.2); Carbon Dioxide 27 mmol/L (22-30); Chloride 103 mmol/L (98-107); Estimated CRCL calculation 87 ml/min; Estimated Glomerular Filt Rate > 60; Glucose 106 mg/dL (75-110); Lipase 251 U/L (23-300); Potassium 3.6 mmol/L (3.4-5.0); Sodium 136 mmol/L (137-145)
[2020-05-21 23:51] LABS: Add Urine Microscopic? NO; Appearance Urine Clear (Clear); Bilirubin Urine Negative (Negative); Blood Urine Negative (Negative); Color Urine Straw (Yellow); Glucose Urine UA Negative (Negative); Ketones Urine Negative (Negative); Leukocyte Esterase Ur Negative LEU/UL (Negative); Nitrate Urine Negative (Negative); Protein Urine Negative (Negative); Specific Grav Ur 1.005 (1.001-1.035); Urobilinogen Urine Negative mg/dL (<2.0)
[2020-05-22] MEDS: LORazepam INJ (*CRX) 2 MG/ML VIAL 1 MG IV PUSH (00:07)
[2020-05-22 00:14] VITALS: BP 118/76; PULSE 87; RESP 20; TEMP 36.6; O2SAT 96
== END 2020-05-22 00:14 | disposition home or self-care (01) ==
PROVIDERS: Emergency Medicine Emergency Medical Services; Emergency Provider Emergency Medicine; PCP Family Medicine
DX: F41.9 Anxiety disorder, unspecified (principal); I10 Essential (primary) hypertension; E78.5 Hyperlipidemia, unspecified; F17.210 Nicotine dependence, cigarettes, uncomplicated
CPT/HCPCS: 36415; 80053; 81003; 83690; 85025; 96361; 96374; 96375; 99284; J2060; J7120

== ENCOUNTER 2020-12-05 03:40 | Emergency (ER) | payer OTHER, SELFPAY ==
--- NOTE | ~2020-12-05 | XR_ITS ---
EXAMINATION: XR chest 2V 12/05/2020 04:24 INDICATION: Left sided dull chest pain PROCEDURE: 2 view chest COMPARISON: Comparison to multiple prior studies sequentially, with oldest reviewed study dated 09/2014. FINDINGS: The lungs are clear. The cardiomediastinal silhouette is within normal limits. There are no pleural effusions. There is no pneumothorax suspected. IMPRESSION: 1: NO ACUTE CARDIOPULMONARY DISEASE. Reviewed, dictated and finalized at location A.
[2020-12-05 03:40] VITALS: BP 114/90; PULSE 92; RESP 12; TEMP 37.2; O2SAT 97; O2SAT 98
--- NOTE | 2020-12-05 04:07 | ECG_ITS ---
Measurements Intervals [place] Rate: 96 P: 22 DE: 136 QRS: -43 QRSD: 109 T: 14 QT: 375 QTc: 475 Interpretive Statements SINUS RHYTHM LEFT AXIS DEVIATION DELAYED PRECORDIAL R/S TRANSITION CONSIDER INFERIOR INFARCT, AGE INDETERMINATE ABNORMAL ECG Electronically Signed On 12-05-2020 8:40:14 CDT by Tyler Roger D.O.
[2020-12-05 04:19] LABS: Basophils Percent Auto 0.3 % (0.2-1.2); Eosinophils Absolute Auto 0.1 K/mm3 (0-0.3); Eosinophils Percent Auto 0.6 % (0-4.4); Hematocrit 40.9 % (42.0-52.0); Hemoglobin 14.1 g/dL (14.0-18.0); Immature Granulocyte Absolute 0.02 K/mm3 (0.00-0.031); Immature Granulocyte Percent A 0.2 % (0-0.5); Lymphocytes Absolute Auto 1.71 K/mm3 (0.9-3.2); Lymphocytes Percent Auto 19.4 % (18.3-44.2); Mean Corpuscular HGB Conc 34.5 g/dl (32-36); Mean Corpuscular Hemoglobin 32.7 pg (26-34); Mean Corpuscular Volume 94.9 fl (80-100); Mean Platelet Volume 9.7 fl (7.4-10.4); Monocytes Percent Auto 11.7 % (2.6-8.5); Neutrophils Percent Auto 67.8 % (45.5-73.1); Platelet Count Result 106 k/mm3 (150-375); Red Blood Count 4.31 M/mm3 (4.6-6.20); Red Cell Distribution Width 13.7 % (11.5-14.5); White Blood Count 8.8 K/mm3 (4.5-10.0)
[2020-12-05 04:34] LABS: INR 0.9; Prothrombin Time 11.8 Seconds (11.1-14.7)
[2020-12-05 04:35] LABS: Partial Thromboplastin Time 26.2 SECONDS (22.3-36.8)
[2020-12-05 04:36] LABS: Anion Gap 14 mmol/L (8-16); Blood Urea Nitrogen 12 mg/dL (9-20); Calcium 8.4 mg/dL (8.4-10.2); Carbon Dioxide 26 mmol/L (22-30); Chloride 97 mmol/L (98-107); Estimated CRCL calculation 147 ml/min; Estimated Glomerular Filt Rate > 60; Glucose 111 mg/dL (65-110); Potassium 3.3 mmol/L (3.4-5.0); Sodium 137 mmol/L (137-145)
[2020-12-05 04:48] LABS: Troponin I < 0.012 ng/mL (0.000-0.034)
[2020-12-05] MEDS: KETOROLAC 30 MG/ML VIAL (*BKC) IV PUSH (05:01)
[2020-12-05] MEDS: CYCLOBENZAPRINE HCL 10 MG TABLET PO (05:02)
[2020-12-05 05:04] VITALS: BP 134/88; PULSE 85; RESP 13; O2SAT 98
--- NOTE | 2020-12-05 06:01 | ED.CHESTPAIN ---
HPI - Chest Pain General Chief Complaint: Chest Pain Stated Complaint: CP Time Seen by Provider: 12/05/20 03:47 History of Present Illness HPI narrative: Patient is a 45-year-old male who presents ER with reports of chest pain. Reports he woke up from sleep having a panic attack. This happens to him often. After having panic attack he developed achiness in his left anterior chest wall. This also often occurs after having a panic attack. Patient reports chronic back pain for which she has regular muscle spasms and cramps. This is also occurring at this point. Patient reports he finished all full bottle of whiskey this evening during the [employer] game prior to falling asleep. He does have alcohol abuse history. No history of coronary disease. Related Data Home Medications Medication Instructions Recorded Confirmed buspirone mg 12/05/20 pantoprazole PO 12/05/20 Allergies Allergy/AdvReac Type Severity Reaction Status Date / Time latex AdvReac Rash Verified 12/05/20 03:55 Review of Systems Review of Systems: All systems reviewed & are unremarkable except as noted in HPI and below Constitutional: Constitutional: Denies chills, Denies fever(s) and Denies weakness ENT: Denies nasal congestion and Denies sore throat Cardiovascular: Cardiovascular: Reports chest pain, Denies rapid heart rate and Denies radiating jaw, neck or arm pain Respiratory: Respiratory: Denies cough and Denies dyspnea Gastrointestinal: Gastrointestinal: Denies abdominal pain, Denies nausea and Denies vomiting Musculoskeletal: Musculoskeletal: Reports back pain, Denies arthralgias, Denies joint swelling and Reports muscle cramps Psychiatric: Psychiatric: Reports anxiety PMFSH Past Medical History Medical History (Updated 12/05/20 @ 06:05 by Darius Darby MD) Anxiety Hyperlipidemia Hypertension Lipoma of back Family History Family History Father FH: CABG (coronary artery bypass surgery) Mother Patient's mother is in good health Hypertension Father Diabetes mellitus Hypertension Family history of cardiovascular disease Family history of coronary artery disease Social History Social History Smoking packs per day: 1 Smoking cigarettes per day: 20.0 Years smoked: 30 Smoking pack-years: 30.00 Smoking status: Current every day smoker Tobacco type: cigarettes Second hand tobacco smoke exposure: Yes Smoking end date: 03/06/11 Alcohol intake: current Drinks per week: 50 Alcohol use details: daily Substance use: never Gender identity (if verbalized by the patient): Male Spiritual care concerns: No Exam Narrative: GENERAL: Well-appearing, well-nourished, smells of alcohol, and in no acute distress. HEAD: Normocephalic, atraumatic. EYES: PERRL and EOMI. CHEST: Clear to auscultation. No respiratory distress. HEART: Regular rate and rhythm. Normal peripheral pulses. ABDOMEN: Soft, nontender, nondistended. EXTREMITIES: Normal range of motion. No edema. SKIN: Warm, dry, no rash. NEURO: Alert and oriented x3. PSYCH: Normal mood and affect. Course Course Emergency Course: Patient resting comfortably. Given Toradol and cyclobenzaprine. Patient with persistent chest pain since 1 AM and troponins negative. EKG unchanged from 05/2020. Discharge home. Vital Signs Vital signs: Vital Signs Temperature 99.0 F 12/05/20 03:40 Pulse Rate 92 12/05/20 03:40 Respiratory Rate 12 12/05/20 03:40 Blood Pressure 114/90 12/05/20 03:40 Pulse Oximetry 98 12/05/20 03:40 Temperature 99.0 F 12/05/20 03:40 Pulse Rate 85 12/05/20 05:04 Respiratory Rate 13 12/05/20 05:04 Blood Pressure 134/88 12/05/20 05:04 Pulse Oximetry 98 12/05/20 05:04 MDM - Chest Pain Lab Data Result diagrams: 12/05/20 04:10 12/05/20 04:10 Labs:
[2020-12-05 06:20] VITALS: BP 131/85; PULSE 87; RESP 20; O2SAT 96
[2020-12-05] MEDS: ASPIRIN 81 MG CHEWABLE TABLET 324 MG PO (06:20)
== END 2020-12-05 06:15 | disposition home or self-care (01) ==
PROVIDERS: Emergency Provider Emergency Medicine; PCP Physician Assistant
DX: R07.9 Chest pain, unspecified (principal); F41.9 Anxiety disorder, unspecified; E78.5 Hyperlipidemia, unspecified; I10 Essential (primary) hypertension; F17.210 Nicotine dependence, cigarettes, uncomplicated; R94.31 Abnormal electrocardiogram [ECG] [EKG]
CPT/HCPCS: 36415; 71046; 80048; 84484; 85025; 85610; 85730; 93005; 96374; 99284; A9270; J1885

== ENCOUNTER 2021-07-09 01:55 | Day surgery (SDC) | payer OTHER, SELFPAY ==
[2021-07-01 14:54] VITALS: BMI 29.6
--- NOTE | 2021-07-01 15:01 | PC.NURSE ---
Report to the Outpatient Waiting Room, entrance under the green pavilion located off [facility], at time _0900_ on date _07-09-21. OR Time: __1100_. - You and your visitor will be asked a series of questions to screen for COVID 19 for your protection. - Only one visitor is allowed at this time. - The patient visitor is requested to leave or wait in car when not with patient. - A mask is required within the hospital. Patients may have clear liquids (water, carbonated beverages, clear teas, apple juice) until 3 hours prior to surgery with a maximum of 20 ounces. - No food from midnight until time of surgery - Infants may have breast milk until 4 hours before surgery, infant formula 6 hours prior to surgery. - Children will be allowed to drink immediately following surgery. If applicable, please bring a bottle or sippy cup to assist with drinking. Juice, water, soda, and popsicles are readily available. For infants on formula, please bring formula the day of surgery. Pacifiers are allowed. Take the following medications with a SIP of water the morning of surgery: ____Amlodipine, Metoprolol, Escitalopram and if needed Hydroxyzine._ Medications to discontinue per physician All vitamins Date to take last lmbi [id number] Please no make-up, nail togolese, hairspray, perfume, deodorant, or body powder the day of surgery. No jewelry (including any body piercings) or valuables the day of surgery, leave them at home. Please take a shower or bath the night before, or the morning of, surgery with an antibacterial soap. Wear comfortable, loose fitting clothing. Children are encouraged to wear pajamas. - Jewelry must be removed prior to entering the operating room. Rings and piercings that are not removed may be cut off. - The hospital will not accept responsibility for valuables. - Please leave all valuables, including medications, at home the day of surgery. If you are going home after surgery, a licensed electric truck driver must drive you home. - NO public transportation without another adult. - We recommend that an adult stay with you for 24 hours following discharge. - We also recommend that you do not drive, make important decision, drink alcoholic beverages, or take any drugs that were not prescribed by your health care provider for at least 24 hours after your discharge time. For Pediatric surgeries, we recommend two adults accompany the child home (only one inside the building at this time). Follow any additional instructions given to you from your surgeon. If you or anyone in your household have experienced Covid symptoms in the past week, please notify your surgeon or the nurse liaison at the phone number below for possible testing. Telephone instructions given to _Patient and asked if any additional questions and then verbalized understanding. Patient advised to call surgeon office or pre surgery nurse liaison [phone] if any additional questions.
--- NOTE | 2021-07-08 08:34 | PM.IMHP ---
H&P: HPI History of Present Illness Date/Time: 07/08/21 08:34 Chief Complaint: Hoarse voice, vocal cord polyps, facial lesion /cyst right Narrative: patient presents for planned surgical procedure no change in symptoms no change in history. Review of Systems Constitutional: Constitutional: Denies fatigue, Denies fever(s) and Denies lethargy Eyes: Eyes: Denies blurry vision and Denies change in vision ENT: Reports as per HPI Cardiovascular: Cardiovascular: Denies chest pain Respiratory: Respiratory: Denies cough Endocrine: Endocrine: Denies fatigue Hematologic/Lymphatic: Hematologic/Lymphatic: Denies easy bleeding, Denies easy bruising and Denies lymphadenopathy Allergic/Immunologic: Allergic/Immunologic: Denies seasonal rhinorrhea [facility] Past Medical History Medical History (Updated 06/28/21 @ 10:53 by Víctor Escalona MD) Anxiety Hyperlipidemia Hypertension Lipoma of back Family History Family History Father FH: CABG (coronary artery bypass surgery) Cancer Diabetes mellitus Hypertension Heart disease Mother Patient's mother is in good health Hypertension Heart disease Sibling Hypertension Social History Social History Smoking packs per day: 1 Smoking cigarettes per day: 20.0 Years smoked: 30 Smoking pack-years: 30.00 Smoking status: Current every day smoker Tobacco type: cigarettes Second hand tobacco smoke exposure: Yes Smoking end date: 03/06/11 Alcohol intake: current Drinks per week: 50 Alcohol use details: drinks a pint of wiskey or a 6 pack once a month. Substance use: current Substance use type: marijuana Other substance usage details: Rarely Living arrangements: with family Gender identity (if verbalized by the patient): Male Spiritual care concerns: No Meds Home Medications and Allergies Home Medications Medication Instructions Recorded Confirmed Type amlodipine [Norvasc] 5 mg PO QAM #30 tablet 09/27/19 07/01/21 Rx metoprolol tartrate 25 mg PO Q12HR #60 tablet 09/27/19 07/01/21 Rx pantoprazole 40 mg PO BID 12/05/20 07/01/21 History pravastatin 20 mg tablet 20 mg PO HS 06/28/21 07/01/21 History escitalopram oxalate 20 mg PO DAILY 07/01/21 07/01/21 History hydroxyzine HCl 25 mg PO TID PRN 07/01/21 07/01/21 History multivitamin 1 tablet PO DAILY 07/01/21 07/01/21 History sucralfate 10 ml PO QID 07/01/21 07/01/21 History thiamine HCl (vitamin B1) 250 mg PO DAILY 07/01/21 07/01/21 History venlafaxine 37.5 mg PO HS 07/01/21 07/01/21 History vitamin B complex 1 tablet PO DAILY 07/01/21 07/01/21 History Allergies Allergy/AdvReac Type Severity Reaction Status Date / Time aspirin Allergy Severe throat Verified 07/01/21 14:48 swelling latex AdvReac Mild Rash Verified 07/01/21 14:48 Exam Const: General: cooperative, healthy appearing, comfortable, well developed and alert HENMT: Head: normal to inspection, normocephalic and atraumatic Ears: hearing grossly normal bilaterally, external ears normal, TM's normal bilaterally and EAC's normal General nose exam: Normal external nose present, Normal nares present, No nasal polyps present, Normal nasal mucous membranes and turbinates present and Normal septum present Face and sinus: abnormal facial exam ( Right facial cyst) Mouth: Yes Normal oral and palatal mucosa present, Yes lip normal, Yes tongue normal, Yes oropharynx normal and Yes moist mucous membranes Teeth and gingiva: dentition normal and gingiva normal Throat: posterior oropharynx normal, tonsils normal and uvula midline Eyes: General: appearance normal, both eyes and all related structures Periorbital: periorbital findings normal Eyelids: eyelids normal Conjunctivae: conjunctivae normal Sclera: sclerae normal Neck: Neck: normal visual inspection, full ROM and no lymphadenopathy Thyroid: thyroid normal Lymphat
[2021-07-09] VITALS (9 sets, daily range): BP systolic 102–195; BP diastolic 64–88; PULSE 60–67; RESP 12–18; TEMP 36.5–36.8; O2SAT 96–100
--- NOTE | 2021-07-09 07:19 | WPDHPUPDATE1 ---
History and Physical Update Update Date/Time: 07/09/21 07:19 History and Physical has been reviewed, including an updated exam of the patient. There are NO changes in the patient's condition. Risks, benefits, and alternatives have been discussed and questions answered. Patient agrees to proceed with procedure.
--- NOTE | 2021-07-09 07:31 | WPDANESEPPF ---
Anes - Initial Pre Proc Eval Procedure: Operation Date: 07/09/21 10:00 Proposed Procedures p Excision Right Facial Cyst, - Víctor Escalona MD s Micro Direct Laryngoscopy with Vocal Cord Stripping - Víctor Escalona MD Date/Time: 07/09/21 07:31 Surgeon: Víctor Escalona MD Pre Op Diagnosis: right facial cyst, vocal cord lesion Patient Data Age: 45 Gender: M Height: 1.75 m Weight: 91 kg Allergies Allergy/AdvReac Type Severity Reaction Status Date / Time aspirin Allergy Severe throat Verified 07/09/21 08:21 swelling latex AdvReac Mild Rash Verified 07/09/21 08:21 Home Medications Medication Instructions Recorded Confirmed Type amlodipine [Norvasc] 5 mg PO QAM #30 tablet 09/27/19 07/09/21 Rx metoprolol tartrate 25 mg PO Q12HR #60 tablet 09/27/19 07/09/21 Rx pantoprazole 40 mg PO BID 12/05/20 07/09/21 History pravastatin 20 mg tablet 20 mg PO HS 06/28/21 07/09/21 History escitalopram oxalate 20 mg PO DAILY 07/01/21 07/09/21 History hydroxyzine HCl 25 mg PO TID PRN 07/01/21 07/09/21 History multivitamin 1 tablet PO DAILY 07/01/21 07/09/21 History sucralfate 10 ml PO QID 07/01/21 07/09/21 History thiamine HCl (vitamin B1) 250 mg PO DAILY 07/01/21 07/09/21 History venlafaxine 37.5 mg PO HS 07/01/21 07/09/21 History vitamin B complex 1 tablet PO DAILY 07/01/21 07/09/21 History Patient hx anesthesia problems: none Family hx anesthesia problems: none Results Review: All pre-operative results and documents have been reviewed as part of the pre-operative evaluation. [facility] Past Medical History Medical History (Updated 06/28/21 @ 10:53 by Víctor Escalona MD) Anxiety Hyperlipidemia Hypertension Lipoma of back Family History Family History Father FH: CABG (coronary artery bypass surgery) Cancer Diabetes mellitus Hypertension Heart disease Mother Patient's mother is in good health Hypertension Heart disease Sibling Hypertension Social History Social History (Updated 07/09/21 @ 09:04 by Ranjan Bain DO) Smoking packs per day: 1 Smoking cigarettes per day: 20.0 Years smoked: 30 Smoking pack-years: 30.00 Smoking status: Current every day smoker Tobacco type: cigarettes Second hand tobacco smoke exposure: Yes Smoking end date: 03/06/11 Alcohol intake: current Drinks per week: 20 Alcohol use details: drinks a pint of wiskey or a 6 pack once a month 3-4 days a weeks, sometimes won't drink for a couple months Substance use: current Substance use type: marijuana Other substance usage details: Rarely Living arrangements: with family Gender identity (if verbalized by the patient): Male Spiritual care concerns: No Anes - Eval Final PreProcedure Day of Procedure 07/09/21 07:31 Patient weight: overweight Heart: regular rate and rhythm Lungs: clear to auscultation and normal air movement Airway: Mallampati scale class III Neurological: alert and oriented Last oral intake: >/= 8 hours ASA classification: III Emergent: no Anesthetic plan: proceed Anesthesia type and monitoring: general ETT and standard monitoring Results Review: All pre-operative results and documents have been reviewed as part of the pre-operative evaluation. Informed Consent: The patient's anesthetic plan and its attendant risks and benefits were discussed with the patient/family/POA. Questions were solicited and answers provided to the satisfaction of the patient/family/POA.
[2021-07-09] MEDS: LACTATED RINGERS 1,000 ML 30 ML IV CONT ×2 (08:44→10:24)
[2021-07-09] MEDS: ceFAZolin 2 GM/D5W 50 ML 2 GM/50 ML BAG IVPB (09:21)
[2021-07-09] MEDS: LIDO 1%/EPINEPHRINE/PF 1:200,000 30 ML VIAL 10 ML XX (09:33)
[2021-07-09] MEDS: OXYMETAZOLINE HCL 0.05% NAS 15 ML BTL (*BKC) 1 SPRAY NASAL (10:00)
--- NOTE | 2021-07-09 10:39 | P.OP_ITS ---
Procedure Note - Detailed Date of Procedure 07/09/21 Pre-op Diagnosis right facial cyst, vocal cord lesion/polyps bilaterally Post-op Diagnosis Same Procedure Performed Excision of right facial cyst, micro direct laryngoscopy with excision of bilateral vocal cord polyps Surgeon Víctor Escalona MD Anesthesia General Indications See above Findings Right facial cyst excised not ruptured, bilateral vocal cord polyps removed fairly large everything sent for pathology vocal cords and a damaged Description of Procedure Patient identified consent verified. Patient brought operating room. Time-out performed. Anesthesia induced endotracheal tube secured. Patient prepped and draped for for mentioned procedure. Second time-out performed. Small area anesthetized over right facial cyst approximately 2 cm 15 blade utilized in an elliptical fashion to excise over the cyst cyst removed with blunt dissection bipolar electrocautery utilized to cauterize any small bleeding vessels. Cyst removed without rupture. Incision was approximately 3 cm not 2. Closed in the deep layer 4-0 interrupted Vicryl suture after being copiously irrigated with sterile normal saline. Skin closed with 4 interrupted 5 0 fast gut sutures. Ointment and dressing placed. Maxillary tooth mouth guard then placed. Dedo laryngoscope utilized to view the cords. LT AP anesthetized cords. Microscope brought into field after suspension. Micro got micro direct laryngoscopy utilized laryngeal tape recorder repairer utilized to remove large polyps down to cords cords left un damaged. They were also sent for pathologic analysis with laryngeal graspers grabbing the bigger polyp. Bleeding controlled with Afrin-soaked pledgets bleeding was minimal. Under direct visualization the patient was then extubated there were no polyps or lesions on the posterior cords. Maxillary tooth mouth guard removed laryngoscope removed care the patient turned Anesthesiology. I performed all dictated portions of the procedure. Total blood loss less than 2 cc. There were no complications. Estimated Blood Loss 2 Drains No Packing No Pathology Yes Complications No immediate complications Condition Stable Disposition PACU
[2021-07-09] MEDS: fentaNYL CITRATE INJ (*CRX) 100 MCG/2 ML VIAL 25 MCG IV PUSH ×3 (10:56→11:16)
== END 2021-07-09 12:22 | disposition home or self-care (01) ==
PROVIDERS: PCP Physician Assistant; Visit Provider Otolaryngology
PROC: (CPT 31541; principal; 2021-07-09 10:00)
PROC: 0CJS8ZZ Inspection of Larynx, Via Natural or Artificial Opening Endoscopic (ICD-10-PCS; CPT 31541; 2021-07-09 10:00)
DX: J38.2 Nodules of vocal cords (principal); L72.0 Epidermal cyst; I10 Essential (primary) hypertension; F41.9 Anxiety disorder, unspecified; E78.5 Hyperlipidemia, unspecified; F17.210 Nicotine dependence, cigarettes, uncomplicated; F12.90 Cannabis use, unspecified, uncomplicated
CPT/HCPCS: 31541; 11443; 12052; 88305; A9270; J0330; J0690; J1100; J2250; J2405; J2704; J3010; J7120

== ENCOUNTER 2022-05-20 15:27 | Observation (INO) | payer OTHER, SELFPAY ==
[2022-05-20] VITALS (7 sets, daily range): BP systolic 131–180; BP diastolic 70–92; PULSE 90–120; RESP 18–22; TEMP 36.8–37.2; O2SAT 96–100; BMI 29.7
--- NOTE | ~2022-05-20 | XR_ITS ---
EXAMINATION: XR chest 2V 05/20/2022 16:12 INDICATION: Chest pain and shortness of breath PROCEDURE: 2 view chest COMPARISON: Comparison to multiple prior studies sequentially, with oldest reviewed study dated 04/25. FINDINGS: The lungs are clear. The cardiomediastinal silhouette is within normal limits. There are no pleural effusions. There is no pneumothorax suspected. IMPRESSION: 1: NO ACUTE CARDIOPULMONARY DISEASE. Reviewed, dictated and finalized at location A.
--- NOTE | ~2022-05-20 | CT_ITS ---
EXAMINATION: CT abdomen pelvis w con DATE: 05/21/2022 02:35 INDICATION: Epigastric and upper abdominal pain TECHNIQUE: Computed tomography (CT) of the abdomen and pelvis was performed with 100 cc Omnipaque 350 intravenous contrast. The dose-length product was 652.92 mGy-cm. Automated exposure control and iter ative reconstruction technique were employed. COMPARISON: CT dated 03/10/2020 FINDINGS: Lung bases are unremarkable. Heart size normal. No significant pleural or pericardial effus ion. No significant vascular abnormality. No lymphadenopathy. Colonic diverticulosis without evidence for diverticulitis. Normal appendix. Nonobstructive bowel pattern. Mild thickening of the bladder wa ll, likely due to underdistention. Cystitis less favored. Fatty infiltration of the liver. The spleen , pancreas, adrenal glands and kidneys are unremarkable. Gallbladder is mildly distended. No free air or free fluid. There is mild lumbar spondylosis with levoscoliosis. No acute osseous abnormality. IMPRESSION: 1. No acute abdominal abnormality. 2: Hepatic steatosis. Reviewed, dictated and finalized at location A.
--- NOTE | 2022-05-20 15:28 | ECG_ITS ---
Measurements Intervals [place] Rate: 105 P: 55 ND: 142 QRS: -52 QRSD: 93 T: 55 QT: 351 QTc: 465 Interpretive Statements SINUS TACHYCARDIA LEFT AXIS DEVIATION DELAYED PRECORDIAL R/S TRANSITION BASELINE WANDER- I, II, III, AVR, AVL, AVF BORDERLINE ECG COMPARED TO ECG 12/05/2020 03:44:07 SINUS TACHYCARDIA NOW PRESENT Electronically Signed On 05-20-2022 15:59:20 CDT by Tyler Roger D.O.
--- NOTE | 2022-05-20 15:31 | PC.NURSE ---
Patient's brother's girlfriend pulled nurses aside at triage to inform them that patient has been on a killian and his last drink was 48 hours ago. It was also stated that the patient does have a hx of a stroke, polyps, and had a recent hospitalization either at [facility] and was told some blood work was abnormal.
[2022-05-20 15:55] LABS: Basophils Absolute Auto 0.1 K/mm3 (0.0-0.1); Basophils Percent Auto 0.4 % (0.2-1.2); Eosinophils Percent Auto 0.2 % (0-4.4); Hematocrit 37.8 % (42.0-52.0); Immature Granulocyte Absolute 0.02 K/mm3 (0.00-0.031); Immature Granulocyte Percent A 0.2 % (0-0.5); Immature Platelet Fraction Pct 7.2 % (0.9-11.2); Lymphocytes Absolute Auto 1.81 K/mm3 (0.9-3.2); Mean Corpuscular HGB Conc 34.4 g/dl (32-36); Mean Corpuscular Volume 90.2 fl (80-100); Monocytes Absolute Auto 1.3 K/mm3 (0.1-0.6); Neutrophils Absolute Auto 9.7 K/mm3 (1.3-6.7); Neutrophils Percent Auto 75.2 % (45.5-73.1); Platelet Count Result 64 k/mm3 (150-375); Red Blood Count 4.19 M/mm3 (4.6-6.20); Red Cell Distribution Width 15.1 % (11.5-14.5); White Blood Count 12.9 K/mm3 (4.5-10.0)
[2022-05-20 16:04] LABS: Alanine Aminotransferase 37 U/L (6-50); Alkaline Phosphatase 95 U/L (38-126); Anion Gap 17 mmol/L (8-16); Aspartate Amino Transferase 60 U/L (17-59); Bilirubin,Total 2.3 mg/dL (0.2-1.3); Blood Urea Nitrogen 15 mg/dL (9-20); Calcium 8.6 mg/dL (8.4-10.2); Carbon Dioxide 23 mmol/L (22-30); Chloride 95 mmol/L (98-107); Estimated CRCL calculation 140 ml/min; Estimated Glomerular Filt Rate > 60; Glucose 86 mg/dL (65-110); Lipase 180 U/L (23-300); Potassium 3.2 mmol/L (3.4-5.0); Sodium 135 mmol/L (137-145)
[2022-05-20 16:12] LABS: INR 1.1; Prothrombin Time 13.7 Seconds (11.1-14.7)
[2022-05-20 16:16] LABS: Troponin I < 0.012 ng/mL (0.000-0.034)
[2022-05-20] MEDS: SODIUM CHLORIDE 0.9% IV 1,000 ML 999 ML IV CONT (16:39)
[2022-05-20] MEDS: ONDANSETRON INJ 4 MG/2 ML VIAL IV PUSH (16:39)
[2022-05-20 16:49] LABS: Ethanol 73 mg/dL (<10)
[2022-05-20] MEDS: diazePAM INJ (*CRX) 10 MG/2 ML SYRINGE 5 MG IV PUSH ×2 (17:28→18:15)
--- NOTE | 2022-05-20 18:34 | ED.GENADULT ---
HPI - General Adult General Chief complaint: Chest Pain Stated complaint: chest pain Time Seen by Provider: 05/20/22 16:14 History of Present Illness HPI narrative: Patient is a 46-year-old male who presents ER with multiple issues but main issue is alcohol withdrawal. Last drink was earlier in the morning. Patient's father today and on his not tolerating well. He is very shaky and tremulous. He has been nauseous and diaphoretic. He reports he was at [facility] last night after having a fall out of bed and hurting his shoulder. She also reports he is evaluated for chest pain and epigastric discomfort. Denies DC or pancreatitis. There is no new injury was shoulder. Denies striking his head or losing consciousness. Related Data Home Medications Medication Instructions Recorded Confirmed pantoprazole 40 mg tablet,delayed 40 mg PO BID 12/05/20 12/08/21 release pravastatin 20 mg tablet 20 mg PO HS 06/28/21 12/08/21 escitalopram oxalate 20 mg tablet 20 mg PO DAILY 07/01/21 12/08/21 hydroxyzine HCl 25 mg tablet 25 mg PO TID PRN Anxiety 07/01/21 12/08/21 multivitamin 1 tablet PO DAILY 07/01/21 07/09/21 thiamine HCl (vitamin B1) 250 mg 250 mg PO DAILY 07/01/21 12/08/21 tablet venlafaxine 37.5 mg 37.5 mg PO HS 07/01/21 12/08/21 capsule,extended release 24 hr vitamin B complex 1 tablet PO DAILY 07/01/21 12/08/21 Allergies Allergy/AdvReac Type Severity Reaction Status Date / Time aspirin Allergy Severe throat Verified 05/20/22 15:31 swelling latex AdvReac Mild Rash Verified 05/20/22 15:31 Review of Systems Review of Systems: All systems reviewed & are unremarkable except as noted in HPI and below Constitutional: Constitutional: Denies chills, Denies fatigue and Denies fever(s) ENT: Denies nasal congestion and Denies sore throat Cardiovascular: Cardiovascular: Denies chest pain, Denies rapid heart rate and Denies radiating jaw, neck or arm pain Respiratory: Respiratory: Denies cough and Denies dyspnea Gastrointestinal: Gastrointestinal: Reports abdominal pain, Denies diarrhea, Reports nausea and Reports vomiting Neurologic: Denies focal weakness and Denies numbness Comments: Tremor PMFSH Past Medical History Medical History (Updated 05/20/22 @ 18:35 by Darius Darby MD) Anxiety Hyperlipidemia Hypertension Lipoma of back Family History Family History Father FH: CABG (coronary artery bypass surgery) Cancer Diabetes mellitus Hypertension Heart disease Mother Patient's mother is in good health Hypertension Heart disease Sibling Hypertension Social History Social History Smoking packs per day: 1 Smoking cigarettes per day: 20.0 Years smoked: 30 Smoking pack-years: 30.00 Smoking status: Current every day smoker Tobacco type: cigarettes Second hand tobacco smoke exposure: Yes Smoking end date: 03/06/11 Alcohol intake: current Drinks per week: 20 Alcohol use details: drinks a pint of wiskey or a 6 pack once a month 3-4 days a weeks, sometimes won't drink for a couple months Substance use: current Substance use type: marijuana Other substance usage details: Rarely Living arrangements: with family Gender identity (if verbalized by the patient): Male Spiritual care concerns: No Exam Narrative: GENERAL: No-appearing, well-nourished, and in moderate distress. HEAD: Normocephalic, atraumatic. EYES: PERRL and EOMI. ENT: Mucous membranes moist. CHEST: Clear to auscultation. No respiratory distress. HEART: Tachycardic and regular. Normal peripheral pulses. ABDOMEN: Soft, nontender, nondistended. EXTREMITIES: Normal range of motion. No edema. SKIN: Warm, dry, no rash. NEURO: Moderate severe tremors unnerving that make it difficult for him to move sheets around on the bed. Alert and oriented x3. PSYCH: Normal mood and a
[2022-05-20 18:40] LABS: Troponin I 0.015 ng/mL (0.000-0.034)
[2022-05-20] MEDS: THIAMINE HCL 200 MG/2 ML VIAL 100 MG IV PUSH (19:11)
[2022-05-20] MEDS: LACTATED RINGERS 1,000 ML 125 ML IV CONT ×2 (19:11→23:19)
--- NOTE | 2022-05-20 19:15 | PM.IMHP ---
H&P: HPI History of Present Illness Date/Time: 05/20/22 19:15 Chief Complaint: Tremors and abdominal pain. Narrative: This is a pleasant 46-year-old male smoker with reported history of [place], pancreatitis, Helicobacter pylori treated x2, hypertension, hyperlipidemia, anxiety, and alcohol abuse who presented to the emergency department via private vehicle for evaluation of tremors and abdominal pain. Patient provides the following history. He has longstanding history of alcohol abuse and typically drinks a pt of whiskey or a six-pack of beer several days a week however over the last several weeks he has been drinking daily as his father has been ill in the hospital and in fact he this morning. Over the last 2 days however he has not been drinking and he has been feeling lightheaded and weak. He has also been having generalized abdominal pain, more so localized to the periumbilical and left mid and upper quadrant. He has difficulties describing the pain but states that it does not radiate. It is somewhat similar to pain he had previously experience with pancreatitis and when he had H pylori. Several days ago he had a dark stool but none since that time. He has had some nausea and vomiting but denies hematemesis. No fever, chills, or sweats. He denies hallucinations. He has not had chest or pleuritic pain. No shortness of breath. Upon presentation to the emergency department he appeared to be suffering from alcohol withdrawal and he was given diazepam 5 mg IV push x1 with some improvement in his tremors. He is being admitted this setting for further treatment of alcohol withdrawal. He denies having history of alcohol withdrawal seizures. Review of Systems Review of Systems: Twelve systems were reviewed. A couple of days ago he fell while coming out of the bathroom, his dog reportedly got tripped up in his feet. He fell onto his knees and did not hit his head. There was no loss of consciousness. He denies diarrhea. No dysuria. Occasional dysphagia, not new. Except as documented, all other systems were reviewed and negative. [facility] Past Medical History Medical History (Updated 05/20/22 @ 23:45 by Kianna Austin PA-C) Anxiety Helicobacter pylori (H. pylori) Hyperlipidemia Hypertension Lipoma of back Pancreatitis Right foot drop Thrombocytopenia Vocal cord polyps Surgical History Surgical History (Updated 05/20/22 @ 23:39 by Kianna Austin PA-C) History of vocal cord polypectomy Status post excision of lipoma Family History Family History Father Diabetes mellitus Heart disease FH: CABG (coronary artery bypass surgery) Cancer Hypertension Mother Heart disease Chronic obstructive pulmonary disease Hypertension Congestive heart failure Sibling Hypertension Social History Social History (Updated 05/20/22 @ 23:40 by Kianna Austin PA-C) Social History: Surrogate medical decision maker: Cheyenne Seymour, mother. Code status: Full code. Smoking packs per day: 1 Smoking cigarettes per day: 20.0 Years smoked: 35 Smoking pack-years: 35.00 Smoking status: Heavy tobacco smoker Tobacco type: cigarettes Second hand tobacco smoke exposure: Yes Smoking end date: 03/06/11 Alcohol intake: current Drinks per week: 35 Alcohol use details: Drinks a pt of whiskey or a 6 pack most days of the week, sometimes won't drink for a couple months and sometimes he will drink more than that. Substance use: former Substance use type: former substance user Other substance usage details: Rarely Last use: 05/03/22 Living arrangements: with family Spiritual care concerns: No Meds Home Medications and Allergies Home Medications Medication Instructions Recorded Confirmed Type amlodipine 5 mg tablet (Norvasc) 5 mg PO QAM #30 tabs 09/27/19 05/21/22 Rx metoprolol tartrate 25 mg tablet 25 mg PO Q12HR #60 tabs 09/26
--- NOTE | 2022-05-20 21:37 | ADMGEN ---
This patient, Carmelo Seymour Jr., was admitted to IMU Room 214-01. Patient/family oriented to hospital policies and general routines including ID bracelet, bed and alarms, visiting hours, pain management, procedures, bathroom and other care routines, personal items, smoking policy, room service/diet, and visiting hours. Information on how to activate the Rapid Response Team has been discussed. Patient/Family are encouraged to report perceived risks to care and to ask questions if they do not understand what they are told or what they should do.
[2022-05-20] MEDS: HYDROcodone/acetaminophen (*CRX) 5-325 MG TABLET 1 TAB PO (23:23)
[2022-05-21] VITALS (12 sets, daily range): BP systolic 135–159; BP diastolic 82–97; PULSE 72–107; RESP 14–22; TEMP 36.3–36.6; O2SAT 96–100
[2022-05-21 00:06] LABS: Anion Gap 9 mmol/L (8-16); Blood Urea Nitrogen 12 mg/dL (9-20); Calcium 7.8 mg/dL (8.4-10.2); Carbon Dioxide 28 mmol/L (22-30); Chloride 100 mmol/L (98-107); Estimated CRCL calculation 128 ml/min; Estimated Glomerular Filt Rate > 60; Glucose 73 mg/dL (65-110); Magnesium 2.3 mg/dL (1.6-2.3); Potassium 3.3 mmol/L (3.4-5.0); Sodium 137 mmol/L (137-145)
[2022-05-21 00:08] LABS: Hematocrit 35.1 % (42.0-52.0)
[2022-05-21 00:20] LABS: Glucose Point of Care 73 mg/dl (65-105)
[2022-05-21 00:37] LABS: Troponin I 0.013 ng/mL (0.000-0.034)
[2022-05-21] MEDS: chlordiazePOXIDE (*CRX) 25 MG CAPSULE 50 MG PO ×4 (01:14→17:00)
[2022-05-21] MEDS: DEXTROSE 5%/0.9% SOD CHL 1,000 ML 100 ML IV CONT ×3 (01:15→22:17)
[2022-05-21] MEDS: POTASSIUM CHLORIDE 20 MEQ TABLET 40 MEQ PO (02:38)
[2022-05-21 05:14] LABS: Hematocrit 37.4 % (42.0-52.0); Hemoglobin 12.9 g/dL (14.0-18.0); Immature Platelet Fraction Pct 9.6 % (0.9-11.2); Mean Corpuscular HGB Conc 34.5 g/dl (32-36); Mean Corpuscular Hemoglobin 31.3 pg (26-34); Mean Corpuscular Volume 90.8 fl (80-100); Mean Platelet Volume 11.2 fl (7.4-10.4); Platelet Count Result 50 k/mm3 (150-375); Red Blood Count 4.12 M/mm3 (4.6-6.20); Red Cell Distribution Width 14.9 % (11.5-14.5); White Blood Count 8.4 K/mm3 (4.5-10.0)
[2022-05-21 05:24] LABS: Alanine Aminotransferase 33 U/L (6-50); Albumin Level 4.1 g/dL (3.5-5.1); Alkaline Phosphatase 72 U/L (38-126); Anion Gap 6 mmol/L (8-16); Aspartate Amino Transferase 49 U/L (17-59); Bilirubin,Total 2.2 mg/dL (0.2-1.3); Blood Urea Nitrogen 10 mg/dL (9-20); Calcium 8.1 mg/dL (8.4-10.2); Carbon Dioxide 30 mmol/L (22-30); Chloride 101 mmol/L (98-107); Estimated CRCL calculation 151 ml/min; Estimated Glomerular Filt Rate > 60; Glucose 94 mg/dL (65-110); Lipase 114 U/L (23-300); Magnesium 2.3 mg/dL (1.6-2.3); Potassium 3.6 mmol/L (3.4-5.0); Sodium 137 mmol/L (137-145)
[2022-05-21] MEDS: HYDROcodone/acetaminophen (*CRX) 5-325 MG TABLET 1 TAB PO ×3 (08:42→22:15)
[2022-05-21] MEDS: PANTOPRAZOLE SODIUM IV 40 MG VIAL IV PUSH (08:44)
[2022-05-21 12:09] LABS: Glucose Point of Care 163 mg/dl (65-105)
--- NOTE | 2022-05-21 15:08 | PM.IMPN ---
Progress Note: A&P Assessment and Plan (1) Alcohol withdrawal: Qualifiers: Complication of substance-induced condition: uncomplicated Qualified Code(s): F10.230 - Alcohol dependence with withdrawal, uncomplicated Code(s): F10.239 - Alcohol dependence with withdrawal, unspecified Status: Acute (2) Hyponatremia: Code(s): E87.1 - Hypo-osmolality and hyponatremia Status: Acute (3) Thrombocytopenia: Code(s): D69.6 - Thrombocytopenia, unspecified Status: Acute (4) Abdominal pain: Code(s): R10.9 - Unspecified abdominal pain Status: Acute (5) Alcohol abuse: Code(s): F10.10 - Alcohol abuse, uncomplicated Status: Chronic (6) Hypertension: Qualifiers: Hypertension type: unspecified Qualified Code(s): I10 - Essential (primary) hypertension Code(s): I10 - Essential (primary) hypertension Status: Chronic Plan Alcohol withdrawal Continue CIWA protocol Continue thiamine Hyponatremia resolved thrombocytopenia plts 50 likely from alcohol abuse Alcohol abuse Counseled about alcohol cessation HTN continue home meds and CIwa protocol Abd pain ?Alcohol gastritis CT abd no acute changes but showed hepatosteatosis Protonix 40mg po bid monitor DVT prophylaxis no AC due to severe thrombocytopenia The patient presented to the emergency department for evaluation of abdominal pain and shakiness. Labs, imaging, and all reports were personally reviewed. Clinically he is having symptoms of alcohol withdrawal. Initiate CIWA protocol. Start thiamine and folic acid supplementation. He looks dry on exam and will be hydrated. Potassium will be replaced and monitored. Chronic thrombocytopenia appears stable and is likely related to chronic alcohol liver disease. He is having abdominal pain which he reports is similar to when he had pancreatitis in the past a lipase is normal. CT of the abdomen and pelvis has been ordered given the fact that his pain has been pretty persistent for the last couple of days. Analgesics and antiemetics are available as needed. His blood pressures have been a bit elevated but should improve with treatment of alcohol withdrawal. Continue antihypertensives and monitor closely. The rest of his home medications will be reviewed and resumed as appropriate. Subjective Date/time seen: 05/21/22 15:08 Patient was seen evaluated at bedside noted he has been drinking at least a pint of alcohol daily at least for a week, and week was yesterday. Noted abd pain and denies any vomiting and tremors. Review of Systems Review of Systems: All systems reviewed & are unremarkable except as noted in HPI and below Exam Narrative: General: No acute distress HEENT: Normocephalic, atraumatic. PERRL, EOMI. Sclera anicteric. Conjunctiva moderately injected. Tacky mucous membranes. Neck: Supple. Respiratory: Lungs are clear to auscultation bilaterally. Cardiovascular: Tachycardic with normal S1-S2. Gastrointestinal: Abdomen is soft and tender to palpation the periumbilical and left mid and upper quadrant. Demonstrates mild voluntary guarding but no rebound tenderness. No obvious organomegaly. Skin: Warm and dry. Abrasions on the knees, bruising on the dorsum of the left hand. Some bruising on the upper extremities. Extremities: No cyanosis, clubbing, or edema. Radial and pedal pulses intact. Neurological: Alert and oriented x4. Cranial nerves 2-12 are grossly intact. Speech is clear. No facial asymmetry. Tremors of the upper extremities. No asterixis. Mild tongue fasciculations. Psychiatric: Pleasant and cooperative. Appropriate mood. Slightly anxious. Objective Data Vital Signs Vital Signs: Vital Signs - 24 hr 05/20/22 15:32 05/20/22 16:43 05/20/22 18:15 Temperature 98.9 F Pulse Rate 120 H 109 H Respiratory Rate 22 H 22 H Blood Pressure 180/70 H 131/92 H Pulse Oximetry 96 98 98 Oxygen Del
[2022-05-21 17:31] LABS: Glucose Point of Care 166 mg/dl (65-105)
[2022-05-21 17:34] LABS: Folic Acid > 20.0 ng/mL (2.76->20)
[2022-05-21] MEDS: PANTOPRAZOLE 40 MG TABLET PO (22:15)
[2022-05-22] VITALS (9 sets, daily range): BP systolic 131–155; BP diastolic 86–109; PULSE 76–111; RESP 16–22; TEMP 36.1–37.1; O2SAT 95–100
[2022-05-22] MEDS: chlordiazePOXIDE (*CRX) 25 MG CAPSULE 50 MG PO ×3 (00:24→12:27)
[2022-05-22 00:33] LABS: Glucose Point of Care 139 mg/dl (65-105)
[2022-05-22 05:38] LABS: Basophils Percent Auto 0.2 % (0.2-1.2); Eosinophils Absolute Auto 0.2 K/mm3 (0-0.3); Hematocrit 40.1 % (42.0-52.0); Hemoglobin 13.6 g/dL (14.0-18.0); Immature Granulocyte Absolute 0.03 K/mm3 (0.00-0.031); Immature Granulocyte Percent A 0.4 % (0-0.5); Immature Platelet Fraction Pct 13.4 % (0.9-11.2); Lymphocytes Absolute Auto 1.15 K/mm3 (0.9-3.2); Lymphocytes Percent Auto 14.2 % (18.3-44.2); Mean Corpuscular HGB Conc 33.9 g/dl (32-36); Mean Corpuscular Hemoglobin 30.6 pg (26-34); Mean Corpuscular Volume 90.1 fl (80-100); Mean Platelet Volume 12.2 fl (7.4-10.4); Monocytes Absolute Auto 0.7 K/mm3 (0.1-0.6); Neutrophils Percent Auto 74.2 % (45.5-73.1); Platelet Count Result 47 k/mm3 (150-375); Red Blood Count 4.45 M/mm3 (4.6-6.20); Red Cell Distribution Width 14.7 % (11.5-14.5); White Blood Count 8.1 K/mm3 (4.5-10.0)
[2022-05-22 05:44] LABS: Alanine Aminotransferase 36 U/L (6-50); Albumin Level 4.1 g/dL (3.5-5.1); Alkaline Phosphatase 81 U/L (38-126); Anion Gap 2 mmol/L (8-16); Aspartate Amino Transferase 50 U/L (17-59); Bilirubin,Total 1.5 mg/dL (0.2-1.3); Blood Urea Nitrogen 8 mg/dL (9-20); Calcium 8.5 mg/dL (8.4-10.2); Carbon Dioxide 33 mmol/L (22-30); Chloride 104 mmol/L (98-107); Creatine Kinase 109 U/L (55-170); Estimated CRCL calculation 183 ml/min; Estimated Glomerular Filt Rate > 60; Glucose 114 mg/dL (65-110); Potassium 3.3 mmol/L (3.4-5.0); Sodium 139 mmol/L (137-145)
[2022-05-22] MEDS: DEXTROSE 5%/0.9% SOD CHL 1,000 ML 100 ML IV CONT (08:26)
[2022-05-22] MEDS: THIAMINE HCL 100 MG TABLET PO (08:28)
[2022-05-22] MEDS: PANTOPRAZOLE 40 MG TABLET PO (08:28)
[2022-05-22] MEDS: HYDROcodone/acetaminophen (*CRX) 5-325 MG TABLET 1 TAB PO (08:30)
[2022-05-22 11:43] LABS: Glucose Point of Care 116 mg/dl (65-105)
--- NOTE | 2022-05-22 16:44 | PM.DS ---
DS: Admitting Diagnosis Discharge Date 05/22/22 Admitting Diagnosis Alcohol withdrawal DS: Discharge Diagnosis Discharge Diagnosis Plan Alcohol withdrawal Continue CIWA protocol Continue thiamine discharge on thiamine x 30 days and 12 tabs of Librium 10mg tid PRN for anxiety and agitation f/u with PCP in 3-5 days Hyponatremia resolved thrombocytopenia plts 50 likely from alcohol abuse Alcohol abuse Counseled about alcohol cessation HTN continue home meds and CIwa protocol Abd pain ?Alcohol gastritis CT abd no acute changes but showed hepatosteatosis Protonix 40mg po bid monitor DS: Summary Hospital Course Hospital Course: managed for alcohol withdrawal with CIWA protocol, patient improved and was discharged home on PRN librium TID prn and 30 days fo thiamine. f/u with PCP in 3-5 days Time Spent with Patient Time attestation: Total time spent providing and/or coordinating discharge services: DS: Data Data Completed and Pending Labs on day of discharge: Labs from last 24 hours 05/22/22 05/22/22 05/22/22 11:36 04:56 04:56 WBC 8.1 RBC 4.45 L Hgb 13.6 L Hct 40.1 L MCV 90.1 MCH 30.6 MCHC 33.9 RDW 14.7 H Plt Count 47 L MPV 12.2 H Immature Gran % (Auto) 0.4 Neut % (Auto) 74.2 H Lymph % (Auto) 14.2 L [place] % (Auto) 9.0 H Eos % (Auto) 2.0 Baso % (Auto) 0.2 Lymph # (Auto) 1.15 [place] # (Auto) 0.7 H Eos # (Auto) 0.2 Baso # (Auto) 0.0 Abs Immat Gran (auto) 0.03 Absolute Neuts (auto) 6.0 Absolute Nucleated RBC 0.0 Nucleated RBC % 0.0 % Immature Plt Fraction 13.4 H Sodium 139 Potassium 3.3 L Chloride 104 Carbon Dioxide 33 H Anion Gap 2 L BUN 8 L Creatinine 0.40 L Estim Creat Clear Calc 183 Estimated GFR > 60 Glucose 114 H POC Capillary Glucose 116 H Calcium 8.5 Total Bilirubin 1.5 H AST 50 ALT 36 Alkaline Phosphatase 81 Total Creatine Kinase 109 Total Protein 7.0 Albumin 4.1 Vitamin B12 Folate 05/22/22 05/21/22 05/21/22 00:25 17:27 04:58 WBC RBC Hgb Hct MCV MCH MCHC RDW Plt Count MPV Immature Gran % (Auto) Neut % (Auto) Lymph % (Auto) [place] % (Auto) Eos % (Auto) Baso % (Auto) Lymph # (Auto) [place] # (Auto) Eos # (Auto) Baso # (Auto) Abs Immat Gran (auto) Absolute Neuts (auto) Absolute Nucleated RBC Nucleated RBC % % Immature Plt Fraction Sodium Potassium Chloride Carbon Dioxide Anion Gap BUN Creatinine Estim Creat Clear Calc Estimated GFR Glucose POC Capillary Glucose 139 H 166 H Calcium Total Bilirubin AST ALT Alkaline Phosphatase Total Creatine Kinase Total Protein Albumin Vitamin B12 481.0 Folate > 20.0 H Discharge Plan Discharge Attending physician on discharge: Tasha Lancaster Discharging Clinician: Tasha Lancaster Anticipated Discharge Date/Time: 05/22/22 16:39 Patient Disposition: Home, Self-Care Activity: as tolerated Diet: as tolerated Patient Instructions: Antibiotic Form, Abuse of Alcohol (DC), Alcohol Withdrawal (DC) Stand Alone Forms: General Discharge Information Follow-up/Referrals: Lula,MAJOR Burgess [Primary Care Provider] - (f/u with PCP in 3-5 days ) Discharge Medications: New chlordiazepoxide HCl 10 mg capsule 10 mg PO TID PRN (Reason: agitation) Qty: 12 0RF thiamine HCl (vitamin B1) [Vitamin B-1] 100 mg Tablet 100 mg PO QAM Qty: 30 0RF Continued pravastatin 20 mg tablet 20 mg PO HS amlodipine [Norvasc] 5 mg Tablet 5 mg PO QAM Qty: 30 1RF metoprolol tartrate 25 mg Tablet 25 mg PO Q12HR Qty: 60 1RF pantoprazole 40 mg tablet,delayed release (DR/EC) 40 mg PO BID thiamine HCl (vitamin B1) 100 mg tablet 100 mg PO DAILY folic acid 1 mg tablet 1 mg PO DAILY hydroxyzi
== END 2022-05-22 17:28 | disposition home or self-care (01) ==
LOC: ANHED 18:35 → ANHIMU 05-21 00:25
PROVIDERS: Physician Assistant; Admitting Provider Family Medicine; Emergency Provider Emergency Medicine; PCP Physician Assistant; Visit Provider Internal Medicine
DX: F10.230 Alcohol dependence with withdrawal, uncomplicated (principal); Y90.3 Blood alcohol level of 60-79 mg/100 ml; E87.1 Hypo-osmolality and hyponatremia; D69.6 Thrombocytopenia, unspecified; R10.9 Unspecified abdominal pain; M25.519 Pain in unspecified shoulder; W06.XXXA Fall from bed, initial encounter; R00.0 Tachycardia, unspecified; F41.9 Anxiety disorder, unspecified; E78.5 Hyperlipidemia, unspecified; I10 Essential (primary) hypertension; R06.02 Shortness of breath; I25.2 Old myocardial infarction; F17.210 Nicotine dependence, cigarettes, uncomplicated; Z87.19 Personal history of other diseases of the digestive system; Z86.19 Personal history of other infectious and parasitic diseases; F12.90 Cannabis use, unspecified, uncomplicated; Z79.899 Other long term (current) drug therapy; Z82.49 Family history of ischemic heart disease and other diseases of the circulatory system
CPT/HCPCS: 36415; 71046; 74177; 80048; 80053; 80307; 82550; 82607; 82746; 82948; 83690; 83735; 84443; 84484; 85014; 85018; 85025; 85027; 85055; 85610; 85730; 93005; 96360; 96361; 96374; 96375; 96376; 99285; A9270; C9113; G0378; G0379; J2405; J3360; J3411; J7030; J7042; J7120; Q9967

== ENCOUNTER 2022-09-01 01:47 | Emergency (ER) | payer OTHER, SELFPAY ==
--- NOTE | ~2022-09-01 | XR_ITS ---
Portable chest x-ray Comparison: 05/20/2022 Clinical History: Chest pain Findings: Lungs are clear, without focal consolidation or pleural effusion. Cardiomediastinal silho uette is stable. Bones and soft tissues are unremarkable. Impression: Normal chest. Reviewed, dictated and finalized at [facility]. Impression: Normal chest.
[2022-09-01 01:47] VITALS: BP 136/104; PULSE 105; RESP 11; TEMP 36.7; O2SAT 97
--- NOTE | 2022-09-01 01:55 | ECG_ITS ---
Measurements Intervals [place] Rate: 107 P: 20 [place]: 128 QRS: -48 QRSD: 86 T: 47 QT: 332 QTc: 443 Interpretive Statements SINUS TACHYCARDIA MARKED LEFT AXIS DEVIATION [QRS AXIS < -30] COMPARED TO ECG 05/20/2022 15:36:49 NO SIGNIFICANT CHANGES Electronically Signed On 09-02-2022 16:52:48 CDT by Rick Cai M.D.
[2022-09-01 02:11] LABS: Basophils Absolute Auto 0.1 K/mm3 (0.0-0.1); Basophils Percent Auto 0.8 % (0.2-1.2); Eosinophils Percent Auto 0.1 % (0-4.4); Hemoglobin 16.4 g/dL (14.0-18.0); Immature Granulocyte Absolute 0.02 K/mm3 (0.00-0.031); Immature Granulocyte Percent A 0.3 % (0-0.5); Lymphocytes Absolute Auto 2.46 K/mm3 (0.9-3.2); Lymphocytes Percent Auto 31.2 % (18.3-44.2); Mean Corpuscular HGB Conc 34.9 g/dl (32-36); Mean Corpuscular Hemoglobin 30.9 pg (26-34); Mean Corpuscular Volume 88.7 fl (80-100); Mean Platelet Volume 8.9 fl (7.4-10.4); Monocytes Absolute Auto 0.9 K/mm3 (0.1-0.6); Monocytes Percent Auto 11.4 % (2.6-8.5); Neutrophils Absolute Auto 4.4 K/mm3 (1.3-6.7); Neutrophils Percent Auto 56.2 % (45.5-73.1); Platelet Count Result 221 k/mm3 (150-375); White Blood Count 7.9 K/mm3 (4.5-10.0)
--- NOTE | 2022-09-01 02:16 | ED.CHESTPAIN ---
HPI - Chest Pain General Chief Complaint: Chest Pain Stated Complaint: INTERMITTENT CHEST PAIN X FEW HOURS Time Seen by Provider: 09/01/22 02:04 History of Present Illness HPI narrative: 46-year-old male presented emergency department for evaluation of chest pain. Patient is states he has been drinking over the last few hours and presented to the ED complaining of epigastric pain. Patient does have associated nausea and vomiting. Patient does have prior history of pancreatitis. Related Data Home Medications Medication Instructions Recorded Confirmed pantoprazole 40 mg tablet,delayed 40 mg PO BID 12/05/20 05/21/22 release pravastatin 20 mg tablet 20 mg PO HS 06/28/21 05/21/22 hydroxyzine HCl 25 mg tablet 25 mg PO TID PRN Anxiety 07/01/21 05/21/22 venlafaxine 37.5 mg 37.5 mg PO HS 07/01/21 05/21/22 capsule,extended release 24 hr folic acid 1 mg tablet 1 mg PO DAILY 05/21/22 05/21/22 thiamine HCl (vitamin B1) 100 mg 100 mg PO DAILY 05/21/22 05/21/22 tablet Allergies Allergy/AdvReac Type Severity Reaction Status Date / Time aspirin Allergy Severe throat Verified 05/20/22 15:31 swelling latex AdvReac Mild Rash Verified 05/20/22 15:31 Review of Systems Review of Systems: All systems reviewed & are unremarkable except as noted in HPI and below PMFSH Past Medical History Medical History (Updated 09/01/22 @ 05:47 by Edmond Romo MD) Anxiety Helicobacter pylori (H. pylori) Hyperlipidemia Hypertension Lipoma of back Pancreatitis (~05/22/22) Right foot drop Thrombocytopenia Vocal cord polyps Surgical History Surgical History (Updated 05/20/22 @ 23:39 by Kianna Austin PA-C) History of vocal cord polypectomy Status post excision of lipoma Family History Family History Father Diabetes mellitus Heart disease FH: CABG (coronary artery bypass surgery) Cancer Hypertension Mother Heart disease Chronic obstructive pulmonary disease Hypertension Congestive heart failure Sibling Hypertension Social History Social History (Updated 05/20/22 @ 23:40 by Kianna Austin PA-C) Social History: Surrogate medical decision maker: Cheyenne Duronann, mother. Code status: Full code. Smoking packs per day: 1 Smoking cigarettes per day: 20.0 Years smoked: 35 Smoking pack-years: 35.00 Smoking status: Heavy tobacco smoker Tobacco type: cigarettes Second hand tobacco smoke exposure: Yes Smoking end date: 03/06/11 Alcohol intake: current Drinks per week: 35 Alcohol use details: Drinks a pt of whiskey or a 6 pack most days of the week, sometimes won't drink for a couple months and sometimes he will drink more than that. Substance use: former Substance use type: former substance user Other substance usage details: Rarely Last use: 05/03/22 Living arrangements: with family Spiritual care concerns: No Exam Narrative: APPEARANCE: Emotionally distraught HEAD: normocephalic, atraumatic. EYES: PERRLA/EOMI, conjunctivae clear. NOSE: Normal no drainage NECK: Supple. No adenopathy, no masses. RESPIRATORY: Airway patent, respirations nonlabored. Clear to auscultation bilaterally, no rales, rhonchi, wheezing. CARDIOVASCULAR: Regular rate and rhythm without murmurs rubs or gallops. ABDOMINAL: Soft, nondistended, normal bowel sounds, minimal epigastric tenderness to palpation MUSCULOSKELETAL: Moves all extremities. Strength/ROM intact, No edema, No calf tenderness. NEURO: Alert. Cranial nerves II through XII intact. Good gait. Good coordination SKIN: Warm, dry. Normal Color PSYCHIATRIC: Tearful affect Course Course Emergency Course: 46-year-old male presented the ED for evaluation of epigastric pain. Patient was afebrile with no leukocytosis and a hemoglobin of 16.4. Patient had no significant abnormalities on the CMP including a normal T. bili AST ALT alk phos and lipase. Patient had neg
[2022-09-01 02:23] LABS: Alanine Aminotransferase 45 U/L (6-50); Albumin Level 4.9 g/dL (3.5-5.1); Alkaline Phosphatase 78 U/L (38-126); Anion Gap 10 mmol/L (8-16); Aspartate Amino Transferase 58 U/L (17-59); Bilirubin,Total 0.9 mg/dL (0.2-1.3); Blood Urea Nitrogen 14 mg/dL (9-20); Calcium 8.4 mg/dL (8.4-10.2); Carbon Dioxide 28 mmol/L (22-30); Chloride 105 mmol/L (98-107); Estimated CRCL calculation 111 ml/min; Estimated Glomerular Filt Rate > 60; Glucose 145 mg/dL (65-110); Lipase 145 U/L (23-300); Potassium 3.9 mmol/L (3.4-5.0); Sodium 143 mmol/L (137-145)
[2022-09-01 02:25] LABS: Prothrombin Time 13.9 Seconds (11.1-14.7)
[2022-09-01 02:34] LABS: Troponin I < 0.012 ng/mL (0.000-0.034)
[2022-09-01] MEDS: BELLADONNA ALK/PHENOB ELIX 10 ML, MAG HYDROX/ALUMINUM HYD/SIMETH 30 ML, LIDOCAINE HCL 2... PO (02:37)
[2022-09-01] MEDS: ONDANSETRON INJ 4 MG/2 ML VIAL IV PUSH (04:36)
[2022-09-01 05:24] LABS: Troponin I < 0.012 ng/mL (0.000-0.034)
[2022-09-01] MEDS: METOCLOPRAMIDE HCL INJ 10 MG/2 ML VIAL IV PUSH (05:27)
[2022-09-01] MEDS: LORazepam INJ (*CRX) 2 MG/ML VIAL 1 MG IV PUSH (05:30)
== END 2022-09-01 06:20 | disposition home or self-care (01) ==
PROVIDERS: Emergency Provider Emergency Medicine; PCP Physician Assistant
DX: R10.13 Epigastric pain (principal); I10 Essential (primary) hypertension; E78.5 Hyperlipidemia, unspecified; F41.9 Anxiety disorder, unspecified; Z87.891 Personal history of nicotine dependence
CPT/HCPCS: 36415; 71045; 80053; 83690; 84484; 85025; 85610; 85730; 93005; 96374; 96375; 99284; A9270; J2060; J2405; J2765

== ENCOUNTER 2022-09-04 19:36 | Emergency (ER) | payer OTHER, SELFPAY ==
--- NOTE | ~2022-09-04 | CT_ITS ---
EXAMINATION: CT abdomen pelvis w con DATE: 09/04/2022 20:42 INDICATION: Epigastric pain and right lower quadrant abdominal pain. TECHNIQUE: Computed tomography (CT) of the abdomen and pelvis was performed with 100 mL Omnipaque-350 intravenous contrast. Automated exposure control and iterative reconstruction technique were employe d. The dose-length product was 681.26 mGy-cm. COMPARISON: 05/21/2022 FINDINGS: Lung bases are clear. Heart size is normal. No pericardial or pleural effusion. Diffuse hepatic steatosis with focal sparing along the gallbladde r fossa. Gallbladder, spleen, pancreas, bilateral adrenal glands and kidneys are normal. Fluid throug hout the colon consistent with diarrhea. Small bowel and appendix are normal. Bladder is normal. No f ree intraperitoneal gas or fluid. No pathologically enlarged abdominal or pelvic lymphadenopathy. Mil d lumbar levocurvature with moderate spondylosis. IMPRESSION: 1. Fluid throughout the colon consistent with diarrhea. Correlate clinically for gastroenteritis. 2. Diffuse hepatic steatosis. Reviewed, dictated and finalized at location A. IMPRESSION: 1. Fluid throughout the colon consistent with diarrhea. Correlate clinically fo r gastroenteritis. 2. Diffuse hepatic steatosis.
--- NOTE | ~2022-09-04 | XR_ITS ---
EXAMINATION: XR chest 1V portable DATE: 09/04/2022 20:11 INDICATION: Left-sided chest pain TECHNIQUE: frontal view of the chest was obtained. COMPARISON: Chest radiograph dated 09/01/2022 FINDINGS: The lungs remain clear with no focal airspace opacities, pulmonary edema, pleural effusion or pneumot horax. The cardiomediastinal silhouette is normal. Visualized bones and soft tissues are unremarkable . IMPRESSION: 1. No acute cardiopulmonary disease. Reviewed, dictated and finalized at location A.
[2022-09-04 19:43] VITALS: PULSE 77; RESP 20; TEMP 36.6; O2SAT 99
--- NOTE | 2022-09-04 19:45 | ED.ABDPAIN ---
HPI - Abdominal Pain General Chief Complaint: Abdominal Pain Stated Complaint: abd pain, nausea, vomiting Time Seen by Provider: 09/04/22 19:44 Source: patient and EMS Mode of arrival: EMS History of Present Illness HPI narrative: 46 years old white male in a parked nausea, vomiting and diarrhea that started yesterday, patient reported vomiting at least 4 times yesterday and once today, and accounted diarrhea yesterday and few today patient dozed off, work-up with pain right lower quadrant, epigastric and left chest. Patient been drinking alcohol daily, lately 6 beers a day, last alcohol intake was 3 hours prior to arrival to the emergency room, history of anxiety, GERD, hypertension and dropfoot. Currently his main complaint is feeling depressed about his dad who at . [employer]. He denies any fever or chills. Related Data Home Medications Medication Instructions Recorded Confirmed pantoprazole 40 mg tablet,delayed 40 mg PO BID 12/05/20 05/21/22 release pravastatin 20 mg tablet 20 mg PO HS 06/28/21 05/21/22 hydroxyzine HCl 25 mg tablet 25 mg PO TID PRN Anxiety 07/01/21 05/21/22 venlafaxine 37.5 mg 37.5 mg PO HS 07/01/21 05/21/22 capsule,extended release 24 hr folic acid 1 mg tablet 1 mg PO DAILY 05/21/22 05/21/22 thiamine HCl (vitamin B1) 100 mg 100 mg PO DAILY 05/21/22 05/21/22 tablet Allergies Allergy/AdvReac Type Severity Reaction Status Date / Time aspirin Allergy Severe throat Verified 05/20/22 15:31 swelling latex AdvReac Mild Rash Verified 05/20/22 15:31 Review of Systems Review of Systems: All systems reviewed & are unremarkable except as noted in HPI and below PMFSH Past Medical History Medical History Anxiety Helicobacter pylori (H. pylori) Hyperlipidemia Hypertension Lipoma of back Pancreatitis (~05/22/22) Right foot drop Thrombocytopenia Vocal cord polyps Surgical History Surgical History History of vocal cord polypectomy Status post excision of lipoma Family History Family History Father Diabetes mellitus Heart disease FH: CABG (coronary artery bypass surgery) Cancer Hypertension Mother Heart disease Chronic obstructive pulmonary disease Hypertension Congestive heart failure Sibling Hypertension Social History Social History Social History: Surrogate medical decision maker: Cheyenne Seymour, mother. Code status: Full code. Smoking packs per day: 1 Smoking cigarettes per day: 20.0 Years smoked: 35 Smoking pack-years: 35.00 Smoking status: Heavy tobacco smoker Tobacco type: cigarettes Second hand tobacco smoke exposure: Yes Smoking end date: 03/06/11 Alcohol intake: current Drinks per week: 35 Alcohol use details: Drinks a pt of whiskey or a 6 pack most days of the week, sometimes won't drink for a couple months and sometimes he will drink more than that. Substance use: former Substance use type: former substance user Other substance usage details: Rarely Last use: 05/03/22 Living arrangements: with family Spiritual care concerns: No Exam Narrative: General appearance: Well-developed, well-nourished Skin: Normal color Head: Normocephalic, nontraumatic Eyes: Clear conjunctiva ENT: Oropharynx normal, ears normal, nose normal Neck: Supple, nontender Chest and respiratory: Airway patent, no respiratory distress, no accessory muscle use, diffuse tenderness left chest with light palpation, no bruises or rash Heart: Regular rate/rhythm Abdomen: Soft, right lower quadrant tenderness, epigastric tenderness, no organomegaly, quiet bowel sounds Vascular: Normal peripheral pulses, normal capillary refill. Musculoskeletal: Normal range of motion, nontender back Neurologic: Alert and oriented ?3, [employer] i
[2022-09-04] MEDS: ONDANSETRON INJ 4 MG/2 ML VIAL IV PUSH (20:12)
[2022-09-04] MEDS: SODIUM CHLORIDE 0.9% IV 1,000 ML 999 ML IV CONT (20:12)
[2022-09-04] MEDS: PANTOPRAZOLE SODIUM IV 40 MG VIAL IV PUSH (20:12)
[2022-09-04] MEDS: LORazepam INJ (*CRX) 2 MG/ML VIAL 1 MG IV PUSH (20:13)
[2022-09-04 20:19] LABS: Basophils Absolute Auto 0.1 K/mm3 (0.0-0.1); Basophils Percent Auto 0.4 % (0.2-1.2); Eosinophils Absolute Auto 0.1 K/mm3 (0-0.3); Eosinophils Percent Auto 0.5 % (0-4.4); Hemoglobin 15.8 g/dL (14.0-18.0); Immature Granulocyte Absolute 0.05 K/mm3 (0.00-0.031); Immature Granulocyte Percent A 0.3 % (0-0.5); Immature Platelet Fraction Pct 7.3 % (0.9-11.2); Lymphocytes Absolute Auto 2.69 K/mm3 (0.9-3.2); Lymphocytes Percent Auto 15.7 % (18.3-44.2); Mean Corpuscular HGB Conc 35.9 g/dl (32-36); Mean Corpuscular Hemoglobin 31.2 pg (26-34); Mean Platelet Volume 10.7 fl (7.4-10.4); Monocytes Absolute Auto 1.7 K/mm3 (0.1-0.6); Monocytes Percent Auto 9.8 % (2.6-8.5); Neutrophils Absolute Auto 12.6 K/mm3 (1.3-6.7); Neutrophils Percent Auto 73.3 % (45.5-73.1); Platelet Count Result 135 k/mm3 (150-375); Red Blood Count 5.06 M/mm3 (4.6-6.20); White Blood Count 17.1 K/mm3 (4.5-10.0)
[2022-09-04 20:23] VITALS: BP 144/98; PULSE 77; RESP 24; O2SAT 97
[2022-09-04 20:27] LABS: Partial Thromboplastin Time 26.6 SECONDS (22.3-36.8); Prothrombin Time 13.6 Seconds (11.1-14.7)
[2022-09-04 20:29] LABS: Alanine Aminotransferase 55 U/L (6-50); Albumin Level 4.3 g/dL (3.5-5.1); Alkaline Phosphatase 85 U/L (38-126); Anion Gap 8 mmol/L (8-16); Aspartate Amino Transferase 88 U/L (17-59); Bilirubin,Total 2.5 mg/dL (0.2-1.3); Blood Urea Nitrogen 17 mg/dL (9-20); Calcium 8.6 mg/dL (8.4-10.2); Carbon Dioxide 27 mmol/L (22-30); Chloride 99 mmol/L (98-107); Estimated CRCL calculation 125 ml/min; Estimated Glomerular Filt Rate > 60; Glucose 99 mg/dL (65-110); Lipase 419 U/L (23-300); Potassium 3.4 mmol/L (3.4-5.0); Sodium 134 mmol/L (137-145)
[2022-09-04 20:30] LABS: Ethanol < 10 mg/dL (<10)
[2022-09-04 20:41] LABS: Troponin I < 0.012 ng/mL (0.000-0.034)
[2022-09-04 21:21] VITALS: BP 149/97; PULSE 79; RESP 18; O2SAT 97
--- NOTE | 2022-09-04 23:52 | ECG_ITS ---
Measurements Intervals [place] Rate: 74 P: 52 UT: 146 QRS: -44 QRSD: 85 T: 15 QT: 402 QTc: 446 Interpretive Statements SINUS RHYTHM LEFT AXIS DEVIATION BORDERLINE R WAVE PROGRESSION, ANTERIOR LEADS INFERIOR INFARCT, AGE INDETERMINATE BASELINE ARTIFACT- I, II, AVR, AVF, V1 ABNORMAL ECG COMPARED TO ECG 09/01/2022 01:58:56 SINUS RHYTHM NOW PRESENT Electronically Signed On 09-05-2022 6:50:29 CDT by Tyler Roger D.O.
== END 2022-09-04 21:22 | disposition home or self-care (01) ==
PROVIDERS: Emergency Provider Emergency Medicine; PCP Physician Assistant
DX: K52.9 Noninfective gastroenteritis and colitis, unspecified (principal); E80.6 Other disorders of bilirubin metabolism; R94.8 Abnormal results of function studies of other organs and systems; F17.210 Nicotine dependence, cigarettes, uncomplicated; F41.9 Anxiety disorder, unspecified; I10 Essential (primary) hypertension; M21.371 Foot drop, right foot
CPT/HCPCS: 36415; 71045; 74177; 80053; 80307; 83690; 84484; 85025; 85055; 85610; 85730; 93005; 96361; 96374; 96375; 99284; C9113; J2060; J2405; J7030; Q9967

== ENCOUNTER 2022-10-24 04:52 | Inpatient (IN) | payer OTHER, SELFPAY ==
[2022-10-24] VITALS (36 sets, daily range): BP systolic 121–161; BP diastolic 70–111; PULSE 101–139; RESP 12–29; TEMP 36.3–37.3; O2SAT 90–100; BMI 30.2
--- NOTE | ~2022-10-24 | XR_ITS ---
EXAMINATION: XR chest 1V portable DATE: 10/24/2022 06:43 INDICATION: Back pain. TECHNIQUE: A single frontal view of the chest was obtained. COMPARISON: Chest single view 09/04/2022, CT abdomen and pelvis 09/04/2022 FINDINGS: There is no pneumonia, pleural effusion, or pneumothorax. The heart size is normal. IMPRESSION: 1. No acute cardiopulmonary disease. Reviewed, dictated and finalized at location A.
--- NOTE | ~2022-10-24 | CT_ITS ---
EXAMINATION: CT abdomen pelvis w con INDICATION: Abdominal pain TECHNIQUE: Computed tomographic images of the abdomen and pelvis were obtained after the administrati on of 100 cc of Omnipaque 350 intravenous contrast. The dose-length product (DLP) was 09/04/2022 mGy-cm . Automated exposure control and iterative reconstruction technique were employed. COMPARISON: 09/04/2022 FINDINGS: Minimal dependent atelectasis is present in the lung bases. The heart size is normal. The l iver is diffusely low in attenuation when compared with the spleen, consistent with hepatic steatosis . An 8 mm hyperenhancing area of the right hepatic lobe likely reflects a flash filling hemangioma. T he spleen, pancreas, gallbladder, and adrenal glands are normal. The kidneys are unremarkable. No pat hologically enlarged abdominal or pelvic lymph nodes are identified. No free intraperitoneal gas or e vidence of bowel obstruction. The appendix is normal. There is calcified atherosclerosis of the aorta and many of the other arteries. There is mild lumbar spondylosis. IMPRESSION: 1. No CT correlate for the patient's symptoms. 2. Diffuse hepatic steatosis. Reviewed, dictated and finalized at location A.
--- NOTE | 2022-10-24 05:02 | ECG_ITS ---
Measurements Intervals [place] Rate: 115 P: VT: 0 QRS: -56 QRSD: 83 T: 52 QT: 315 QTc: 436 Interpretive Statements SINUS TACHYCARDIA MARKED LEFT AXIS DEVIATION [QRS AXIS < -30] COMPARED TO ECG 09/04/2022 19:44:46 SINUS TACHYCARDIA NOW PRESENT Electronically Signed On 10-25-2022 11:08:00 CDT by Heidi Sue M.D.
--- NOTE | 2022-10-24 06:03 | ED_ITS ---
HPI - General Adult General Chief complaint: Chest Pain Stated complaint: chest pain Time Seen by Provider: 10/24/22 05:08 History of Present Illness HPI narrative: The patient is a 46-year-old gentleman who presents the emergency department with chief complaint of chest pain. Patient reports that he does have history of cardiac disease and history of anxiety the patient states that several months ago his father and he is currently experiencing the effects of his father's anniversary of his the patient reports he has been under a fair amount of stress feels very anxious the patient denies suicidal or homicidal ideation the patient states he is extremely tearful and reports that he proceeded to start drinking to try to cope with his stress the patient reports that that probably has not been the best option to help with his grieving as it makes him have chest pain and makes him feel extremely anxious Review of Systems Review of Systems: A 10 system review of systems was completed on the patient and is negative except for what is stated in the HPI. Nursing and ancillary documentation was reviewed. Exam Narrative: GENERAL: Well-appearing, well-nourished, and in no acute distress. HEAD: Normocephalic, atraumatic. EYES: PERRLA and EOMI. ENT: Nares clear, no rhinorrhea or epistaxis. Mucous membranes moist. NECK: Supple. CHEST: Clear to auscultation. No respiratory distress. HEART: Regular rate and rhythm. No murmur heard. Normal peripheral pulses. ABDOMEN: Soft, nontender, nondistended, normal active bowel sounds. EXTREMITIES: Normal range of motion. No edema. SKIN: Warm, dry, no rash. NEURO: No focal deficits. Alert and oriented x3. PSYCH: Tearful affect Course Vital Signs Vital signs: Vital Signs Temperature 37.3 C 10/24/22 04:54 Pulse Rate 119 H 10/24/22 04:54 Respiratory Rate 12 10/24/22 04:54 Blood Pressure 161/105 H 10/24/22 04:54 Pulse Oximetry 96 10/24/22 04:54 Oxygen Delivery Room Air 10/24/22 04:54 Temperature 37.3 C 10/24/22 04:54 Pulse Rate 119 H 10/24/22 04:54 Respiratory Rate 12 10/24/22 04:54 Blood Pressure 161/105 H 10/24/22 04:54 Pulse Oximetry 96 10/24/22 04:54 Oxygen Delivery Room Air 10/24/22 04:54 Medical Decision Making Vital Signs Vital Signs: Vital Signs Temperature 37.3 C 10/24/22 04:54 Pulse Rate 119 H 10/24/22 04:54 Respiratory Rate 12 10/24/22 04:54 Blood Pressure 161/105 H 10/24/22 04:54 Pulse Oximetry 96 10/24/22 04:54 Oxygen Delivery Room Air 10/24/22 04:54 Temperature 37.3 C 10/24/22 04:54 Pulse Rate 119 H 10/24/22 04:54 Respiratory Rate 12 10/24/22 04:54 Blood Pressure 161/105 H 10/24/22 04:54 Pulse Oximetry 96 10/24/22 04:54 Oxygen Delivery Room Air 10/24/22 04:54
--- NOTE | 2022-10-24 06:03 | ED.GENADULT ---
HPI - General Adult General Chief complaint: Chest Pain <Daryl Heath MD - Last Filed: 10/24/22 06:04> Stated complaint: chest pain <Daryl Heath MD - Last Filed: 10/24/22 06:04> Time Seen by Provider: 10/24/22 05:08 <Daryl Heath MD - Last Filed: 10/24/22 06:04> History of Present Illness HPI narrative: The patient is a 46-year-old gentleman who presents the emergency department with chief complaint of chest pain. Patient reports that he does have history of cardiac disease and history of anxiety the patient states that several months ago his father and he is currently experiencing the effects of his father's anniversary of his the patient reports he has been under a fair amount of stress feels very anxious the patient denies suicidal or homicidal ideation the patient states he is extremely tearful and reports that he proceeded to start drinking to try to cope with his stress the patient reports that that probably has not been the best option to help with his grieving as it makes him have chest pain and makes him feel extremely anxious <Daryl Heath MD - Last Filed: 10/24/22 06:04> Related Data Home medications: Home Medications Medication Instructions Recorded Confirmed pantoprazole 40 mg tablet,delayed 40 mg PO BID 12/05/20 05/21/22 release pravastatin 20 mg tablet 20 mg PO HS 06/28/21 05/21/22 hydroxyzine HCl 25 mg tablet 25 mg PO TID PRN Anxiety 07/01/21 05/21/22 venlafaxine 37.5 mg 37.5 mg PO HS 07/01/21 05/21/22 capsule,extended release 24 hr folic acid 1 mg tablet 1 mg PO DAILY 05/21/22 05/21/22 thiamine HCl (vitamin B1) 100 mg 100 mg PO DAILY 05/21/22 05/21/22 tablet <Daryl Heath MD - Last Filed: 10/24/22 06:04> Allergies/adverse reactions: Allergies Allergy/AdvReac Type Severity Reaction Status Date / Time aspirin Allergy Severe throat Verified 10/24/22 06:28 swelling latex AdvReac Mild Rash Verified 10/24/22 06:28 <Daryl Heath MD - Last Filed: 10/24/22 06:04> Review of Systems Review of Systems: A 10 system review of systems was completed on the patient and is negative except for what is stated in the HPI. Nursing and ancillary documentation was reviewed. <Daryl Heath MD - Last Filed: 10/24/22 06:04> [facility] Past Medical History Medical History: Medical History Anxiety Helicobacter pylori (H. pylori) Hyperlipidemia Hypertension Lipoma of back Pancreatitis (~05/22/22) Right foot drop Thrombocytopenia Vocal cord polyps <Daryl Heath MD - Last Filed: 10/24/22 06:04> Surgical History Surgical History: Surgical History History of vocal cord polypectomy Status post excision of lipoma <Daryl Heath MD - Last Filed: 10/24/22 06:04> Family History Family History: Family History Father Diabetes mellitus Heart disease FH: CABG (coronary artery bypass surgery) Cancer Hypertension Mother Heart disease Chronic obstructive pulmonary disease Hypertension Congestive heart failure Sibling Hypertension <Daryl Heath MD - Last Filed: 10/24/22 06:04> Social History Social History: Social History Social History: Surrogate medical decision maker: Cheyenne Seymour, mother. Code status: Full code. Smoking packs per day: 1 Smoking cigarettes per day: 20.0 Years smoked: 35 Smoking pack-years: 35.00 Smoking status: Heavy tobacco smoker Tobacco type: cigarettes Second hand tobacco smoke exposure: Yes Smoking end date: 03/06/11 Alcohol intake: current Drinks per week: 35 Alcohol use details: Drinks a pt of whiskey or a 6 pack most days of the week, so
[2022-10-24] MEDS: SODIUM CHLORIDE 0.9% IV 1,000 ML 999 ML IV CONT ×3 (06:25→14:44)
[2022-10-24 06:38] LABS: Alanine Aminotransferase 37 U/L (6-50); Alkaline Phosphatase 86 U/L (38-126); Anion Gap 19 mmol/L (8-16); Aspartate Amino Transferase 67 U/L (17-59); Bilirubin,Total 1.1 mg/dL (0.2-1.3); Blood Urea Nitrogen 11 mg/dL (9-20); Calcium 8.6 mg/dL (8.4-10.2); Carbon Dioxide 22 mmol/L (22-30); Chloride 98 mmol/L (98-107); Estimated CRCL calculation 129 ml/min; Estimated Glomerular Filt Rate > 60; Glucose 131 mg/dL (65-110); Lipase 232 U/L (23-300); Potassium 4.2 mmol/L (3.4-5.0); Sodium 139 mmol/L (137-145)
[2022-10-24 06:40] LABS: Basophils Absolute Auto 0.1 K/mm3 (0.0-0.1); Basophils Percent Auto 0.4 % (0.2-1.2); Eosinophils Percent Auto 0.1 % (0-4.4); Hematocrit 45.6 % (42.0-52.0); Hemoglobin 15.7 g/dL (14.0-18.0); Immature Granulocyte Absolute 0.05 K/mm3 (0.00-0.031); Immature Granulocyte Percent A 0.4 % (0-0.5); Lymphocytes Absolute Auto 1.83 K/mm3 (0.9-3.2); Lymphocytes Percent Auto 14.7 % (18.3-44.2); Mean Corpuscular HGB Conc 34.4 g/dl (32-36); Mean Corpuscular Hemoglobin 31.7 pg (26-34); Mean Corpuscular Volume 91.9 fl (80-100); Mean Platelet Volume 9.7 fl (7.4-10.4); Monocytes Percent Auto 8.1 % (2.6-8.5); Neutrophils Absolute Auto 9.5 K/mm3 (1.3-6.7); Neutrophils Percent Auto 76.3 % (45.5-73.1); Platelet Count Result 209 k/mm3 (150-375); Red Blood Count 4.96 M/mm3 (4.6-6.20); Red Cell Distribution Width 15.3 % (11.5-14.5); White Blood Count 12.5 K/mm3 (4.5-10.0)
--- NOTE | 2022-10-24 06:43 | PC.NURSE ---
During down time EDP Dr. Heath verbal ordered and physician documented a medication administration of 1L of sodium chloride bolus at a rate of 999 mls/ hour and also 0.5mg of ativan IV push. This RN administered 1L of sodium chloride at 999 mls/ hour. This RN did not administer 0.5 mg of ativan due to patient no longer needed medication. EDP Dr. Heath made aware.
[2022-10-24 06:46] LABS: Amphetamine Screen Urine Negative (Negative); Barbiturate Screen Urine Negative (Negative); Benzodiazepines Screen Urine Negative (Negative); Cannabinoid Screen Urine Negative (Negative); Cocaine Screen Urine Negative (Negative); Methadone Screen Urine Negative (Negative); Opiate Screen Urine Negative (Negative); Phencyclidine Screen Urine Negative (Negative)
[2022-10-24 06:49] LABS: Troponin I < 0.012 ng/mL (0.000-0.034)
[2022-10-24 07:12] LABS: Appearance Urine Clear (Clear); Bacteria Urine None Seen /hpf; Bilirubin Urine Negative (Negative); Blood Urine Trace (Negative); Color Urine Yellow (Yellow); Glucose Urine UA Negative (Negative); Hyaline Casts Urine Present /lpf; Ketones Urine Trace mg/dL (Negative); Leukocyte Esterase Ur Negative LEU/UL (NEGATIVE); Nitrate Urine Negative (Negative); Protein Urine 2+ mg/dL (Negative); RBC Urine 0-2 /hpf (0-2); Spermatozoa Urine Present; Squamous Epithelial Cell Urine None seen /hpf (Few); Urobilinogen Urine 0.2 mg/dL (<2.0); WBC Urine 0-5 /hpf (0-3); pH Urine 5.5 (5.0-9.0)
[2022-10-24 07:13] LABS: Add Urine Microscopic? YES
[2022-10-24 07:27] LABS: INR 0.9; Partial Thromboplastin Time 24.7 SECONDS (22.3-36.8); Prothrombin Time 12.7 Seconds (11.1-14.7)
[2022-10-24 08:05] LABS: Ethanol 380 mg/dL (<10)
[2022-10-24 12:16] LABS: Troponin I < 0.012 ng/mL (0.000-0.034)
[2022-10-24 13:02] LABS: Ethanol 105 mg/dL (<10)
--- NOTE | 2022-10-24 13:34 | PC.NURSE ---
PIV placed by this RN at 1325 after patient accidentally dislodged L AC PIV. At 1330 patient called d/t PIV being dislodged again. On assessment blood spurting out and PIV on floor. Pt states tape came off d/t sweat. No sweat visible on skin or to touch. Fluids paused and Dr Darby to be notified.
[2022-10-24] MEDS: diazePAM INJ (*CRX) 10 MG/2 ML SYRINGE 5 MG IV PUSH ×3 (14:45→18:16)
[2022-10-24] MEDS: ONDANSETRON INJ 4 MG/2 ML VIAL IV PUSH (14:45)
--- NOTE | 2022-10-24 15:24 | PC.NURSE ---
Mother of patient, Cheyenne, called and provided update with patient approval.
[2022-10-24] MEDS: HYDROcodone/acetaminophen (*CRX) 5-325 MG TABLET 1 TAB PO (18:16)
--- NOTE | 2022-10-24 20:24 | ADMGEN ---
This patient, Carmelo Seymour Jr., was admitted to IMU Room 205-01 at 1930. Patient/family oriented to hospital policies and general routines including ID bracelet, bed and alarms, visiting hours, pain management, procedures, bathroom and other care routines, personal items, smoking policy, room service/diet, and visiting hours. Information on how to activate the Rapid Response Team has been discussed. Patient/Family are encouraged to report perceived risks to care and to ask questions if they do not understand what they are told or what they should do.
--- NOTE | 2022-10-24 21:09 | PM.IMHP ---
H&P: HPI History of Present Illness Date/Time: 10/24/22 21:09 Chief Complaint: chest pain Narrative: ? The patient is a 46-year-old gentleman who presents the emergency department with chief complaint of chest pain.? Patient reports that he does have history of cardiac disease and history of anxiety the patient states that several months ago his father and he is currently experiencing the effects of his father's anniversary of his the patient reports he has been under a fair amount of stress feels very anxious the patient denies suicidal or homicidal ideation the patient states he is extremely tearful and reports that he proceeded to start drinking to try to cope with his stress the patient reports that that probably has not been the best option to help with his grieving as it makes him have chest pain and makes him feel extremely anxious. ?He has a hx of pancreatitis in the past. He is now complaining of epigastric discomfort. The patient is hallucinating and having tremors. He is also diaphoretic. Alcohol level is 380 and repeat is 105 his toxicology screen was negative. Chest x-ray was read as no acute cardiopulmonary disease. I started the patient on the CIWA protocol started given him Ativan. EKG was read as atrial flutter but looks like sinus tachycardia. His white count is 12.5. Troponin negative times. the patient is being admitted to observation status on the date of service of 10/24/22. Review of Systems Review of Systems: All systems reviewed & are unremarkable except as noted in HPI and below Constitutional: Constitutional: Reports as per HPI and Reports no additional constitutional complaints Eyes: Eyes: Reports as per HPI and Reports no additional eye complaints ENT: Reports system reviewed and no additional complaints, except as documented and Reports Normal hearing present Cardiovascular: Cardiovascular: Reports no additional cardiovascular complaints Respiratory: Respiratory: Reports no additional respiratory complaints and Reports no additional respiratory complaints Gastrointestinal: Gastrointestinal: Reports as per HPI and Reports no additional gastrointestinal complaints Musculoskeletal: Musculoskeletal: Reports no additional musculoskeletal complaints Integumentary/Breasts: Skin/Breast: Reports system reviewed and no additional complaints, except as docu and Reports as per HPI Neurologic: Reports system reviewed and no additional complaints, except as documented, Reports as per HPI and Reports Normal hearing present Psychiatric: Psychiatric: Reports no additional psychiatric complaints and Reports as per HPI Endocrine: Endocrine: Reports no additional endocrine complaints Hematologic/Lymphatic: Hematologic/Lymphatic: Reports no additional hematologic/lymphatic complaints Allergic/Immunologic: Allergic/Immunologic: Reports no additional allergic/immunologic complaints [facility] Past Medical History Medical History Anxiety Helicobacter pylori (H. pylori) Hyperlipidemia Hypertension Lipoma of back Pancreatitis (~05/22/22) Right foot drop Thrombocytopenia Vocal cord polyps Surgical History Surgical History History of vocal cord polypectomy Status post excision of lipoma Family History Family History Father Diabetes mellitus Heart disease FH: CABG (coronary artery bypass surgery) Cancer Hypertension Mother Heart disease Chronic obstructive pulmonary disease Hypertension Congestive heart failure Sibling Hypertension Social History Social History (Updated 10/25/22 @ 01:30 by Benita Mitchell NP) Social History: The patient currently lives with his mother. He works for [employer]. He is . Surrogate medical decision maker: Cheyenne Duronann, mother. Code status: Full code. Smoking packs p
[2022-10-24 23:00] LABS: Glucose Point of Care 107 mg/dl (65-105)
[2022-10-24] MEDS: SODIUM CHLORIDE 0.9% IV 1,000 ML 125 ML IV CONT (23:16)
[2022-10-24] MEDS: LORazepam INJ (*CRX) 2 MG/ML VIAL IV PUSH (23:17)
[2022-10-25] VITALS (13 sets, daily range): BP systolic 123–167; BP diastolic 55–98; PULSE 75–106; RESP 16–22; TEMP 36.6–36.8; O2SAT 95–100
[2022-10-25] MEDS: chlordiazePOXIDE (*CRX) 25 MG CAPSULE 50 MG PO ×5 (00:20→23:14)
[2022-10-25] MEDS: LORazepam INJ (*CRX) 2 MG/ML VIAL IV PUSH ×2 (05:01→12:34)
[2022-10-25 05:03] LABS: Basophils Percent Auto 0.3 % (0.2-1.2); Eosinophils Percent Auto 0.1 % (0-4.4); Hematocrit 42.9 % (42.0-52.0); Hemoglobin 14.4 g/dL (14.0-18.0); Immature Granulocyte Absolute 0.04 K/mm3 (0.00-0.031); Immature Granulocyte Percent A 0.3 % (0-0.5); Lymphocytes Absolute Auto 1.24 K/mm3 (0.9-3.2); Lymphocytes Percent Auto 10.5 % (18.3-44.2); Mean Corpuscular HGB Conc 33.6 g/dl (32-36); Mean Corpuscular Hemoglobin 30.9 pg (26-34); Mean Corpuscular Volume 92.1 fl (80-100); Mean Platelet Volume 9.4 fl (7.4-10.4); Monocytes Absolute Auto 1.3 K/mm3 (0.1-0.6); Monocytes Percent Auto 10.8 % (2.6-8.5); Neutrophils Absolute Auto 9.2 K/mm3 (1.3-6.7); Platelet Count Result 124 k/mm3 (150-375); Red Blood Count 4.66 M/mm3 (4.6-6.20); Red Cell Distribution Width 14.6 % (11.5-14.5); White Blood Count 11.8 K/mm3 (4.5-10.0)
[2022-10-25 05:12] LABS: Alanine Aminotransferase 51 U/L (6-50); Albumin Level 4.5 g/dL (3.5-5.1); Alkaline Phosphatase 90 U/L (38-126); Anion Gap 8 mmol/L (8-16); Aspartate Amino Transferase 101 U/L (17-59); Bilirubin,Total 2.7 mg/dL (0.2-1.3); Blood Urea Nitrogen 9 mg/dL (9-20); Calcium 8.5 mg/dL (8.4-10.2); Carbon Dioxide 29 mmol/L (22-30); Chloride 102 mmol/L (98-107); Estimated CRCL calculation 144 ml/min; Estimated Glomerular Filt Rate > 60; Glucose 94 mg/dL (65-110); Lactate Dehydrogenase 246 U/L (120-246); Lipase 105 U/L (23-300); Magnesium 2.3 mg/dL (1.6-2.3); Potassium 3.6 mmol/L (3.4-5.0); Sodium 139 mmol/L (137-145)
[2022-10-25 05:17] LABS: Lactic Acid Reflex 0.7 mmol/L (0.7-2.0)
[2022-10-25] MEDS: SODIUM CHLORIDE 0.9% IV 1,000 ML 125 ML IV CONT ×2 (06:50→15:30)
[2022-10-25] MEDS: HYDROcodone/acetaminophen (*CRX) 5-325 MG TABLET 1 TAB PO (08:19)
[2022-10-25] MEDS: amLODIPine BESYLATE 5 MG TABLET PO (08:19)
[2022-10-25] MEDS: METOPROLOL TARTRATE 25 MG TABLET PO ×2 (08:19→20:56)
[2022-10-25] MEDS: THIAMINE HCL 200 MG/2 ML VIAL 100 MG IV PUSH (08:20)
[2022-10-25] MEDS: FOLIC ACID 1 MG/0.2 ML INJ IV PUSH (08:20)
--- NOTE | 2022-10-25 15:14 | PM.IMPN ---
Progress Note: A&P Assessment and Plan (1) Chest pain: Code(s): R07.9 - Chest pain, unspecified Status: Acute Assessment and Plan: Cardiac enzymes are negative. The patient has a history of pancreatitis and his lipase is normal. Will repeat his lipase and get a CT of the abdomen. (2) Alcohol withdrawal: Code(s): F10.939 - Alcohol use, unspecified with withdrawal, unspecified Status: Acute Assessment and Plan: Continue with ciwa. Continue with scheduled Librium and p.r.n. Ativan. The patient is diaphoretic and tremulous at this time is also having hallucinations. the patient has been drinking heavily. He has a history of pancreatitis although his lipase is normal today will get a CT of the abdomen as the patient was complaining of some abdominal pain. Continue folic acid and thiamine (3) Hyperlipidemia: Qualifiers: Hyperlipidemia type: unspecified Qualified Code(s): E78.5 - Hyperlipidemia, unspecified Code(s): E78.5 - Hyperlipidemia, unspecified Status: Chronic Assessment and Plan: continue with pravastin (4) Hypertension: Qualifiers: Hypertension type: unspecified Qualified Code(s): I10 - Essential (primary) hypertension Code(s): I10 - Essential (primary) hypertension Status: Chronic Assessment and Plan: Continue with Norvasc, metoprolol (5) Sinus tachycardia: Code(s): R00.0 - Tachycardia, unspecified Status: Acute Assessment and Plan: Most likely secondary to alcohol withdrawals Subjective Date/time seen: 10/25/22 15:14 Interval history: 46-year-old gentleman who presents the emergency department with chief complaint of chest pain.? Patient reports that he does have history of cardiac disease and history of anxiety the patient states that several months ago his father and he is currently experiencing the effects of his father's anniversary of his the patient reports he has been under a fair amount of stress feels very anxious the patient denies suicidal or homicidal ideation the patient states he is extremely tearful and reports that he proceeded to start drinking to try to cope with his stress the patient reports that that probably has not been the best option to help with his grieving as it makes him have chest pain and makes him feel extremely anxious. ?He has a hx of pancreatitis in the past. He is now complaining of epigastric discomfort.? The patient is hallucinating and having tremors.? Pt admitted for chest pain history of alcoholism drinks whisky most days Review of Systems Review of Systems: shaking and tremolous All systems reviewed & are unremarkable except as noted in HPI and below Exam Const: General: cooperative, healthy appearing, comfortable, no acute distress, well developed, alert, awake, Physically active, diaphoretic, ill appearing, average body habitus, well nourished and overweight Objective Data Vital Signs Vital Signs: Vital Signs - 24 hr 10/24/22 15:15 10/24/22 15:27 10/24/22 15:30 Temperature 36.3 C L Pulse Rate 109 H 105 H Respiratory Rate 22 H 16 Blood Pressure Pulse Oximetry 90 96 96 Oxygen Delivery Nasal Cannula Oxygen Flow Rate 2 10/24/22 15:31 10/24/22 15:45 10/24/22 17:26 Temperature Pulse Rate 105 H 109 H Respiratory Rate 18 16 29 H Blood Pressure 139/77 Pulse Oximetry 94 99 Oxygen Delivery Oxygen Flow Rate 10/24/22 17:30 10/24/22 17:45 10/24/22 18:00 Temperature Pulse Rate 118 H 105 H Respiratory Rate 22 H 21 H Blood Pressure Pulse Oximetry 98 99 97 Oxygen Delivery Oxygen Flow Rate 10/24/22 18:15 10/24/22 18:30 10/24/22 18:45 Temperature Pulse Rate 121 H 103 H 106 H Respiratory Rate 20 20 21 H Blood Pressure Pulse Oximetry 99 98 98 Oxygen Delivery Oxygen Flow Rate 10/24/22 19:30 10/24/22 23:27 10/24/22 22:00 Temperature 36.4 C 36.4 C L Pul
[2022-10-25] MEDS: PRAVASTATIN SODIUM 20 MG TABLET PO (20:56)
[2022-10-25] MEDS: VENLAFAXINE HCL XR 37.5 MG CAP PO (20:56)
[2022-10-26] VITALS (14 sets, daily range): BP systolic 141–170; BP diastolic 90–105; PULSE 68–95; RESP 14–20; TEMP 36.1–36.8; O2SAT 96–98
[2022-10-26] MEDS: SODIUM CHLORIDE 0.9% IV 1,000 ML 125 ML IV CONT ×3 (01:25→17:22)
[2022-10-26] MEDS: chlordiazePOXIDE (*CRX) 25 MG CAPSULE 50 MG PO (05:25)
[2022-10-26 07:19] LABS: Alanine Aminotransferase 41 U/L (6-50); Albumin Level 3.8 g/dL (3.5-5.1); Alkaline Phosphatase 76 U/L (38-126); Anion Gap 6 mmol/L (8-16); Aspartate Amino Transferase 51 U/L (17-59); Bilirubin,Total 1.3 mg/dL (0.2-1.3); Blood Urea Nitrogen 10 mg/dL (9-20); Calcium 8.1 mg/dL (8.4-10.2); Carbon Dioxide 28 mmol/L (22-30); Chloride 104 mmol/L (98-107); Estimated CRCL calculation 170 ml/min; Estimated Glomerular Filt Rate > 60; Glucose 96 mg/dL (65-110); Potassium 3.3 mmol/L (3.4-5.0); Sodium 138 mmol/L (137-145)
[2022-10-26 07:46] LABS: Glucose Point of Care 94 mg/dl (65-105)
[2022-10-26] MEDS: FOLIC ACID 1 MG/0.2 ML INJ IV PUSH (08:32)
[2022-10-26] MEDS: METOPROLOL TARTRATE 25 MG TABLET PO (08:32)
[2022-10-26] MEDS: LORazepam INJ (*CRX) 2 MG/ML VIAL IV PUSH ×2 (08:33→20:21)
[2022-10-26] MEDS: amLODIPine BESYLATE 5 MG TABLET PO (08:33)
[2022-10-26] MEDS: THIAMINE HCL 200 MG/2 ML VIAL 100 MG IV PUSH (08:33)
[2022-10-26 11:29] LABS: Glucose Point of Care 89 mg/dl (65-105)
[2022-10-26] MEDS: chlordiazePOXIDE (*CRX) 25 MG CAPSULE 75 MG PO ×3 (11:57→23:27)
--- NOTE | 2022-10-26 14:38 | PM.IMPN ---
Progress Note: A&P Assessment and Plan (1) Chest pain: Code(s): R07.9 - Chest pain, unspecified Status: Acute Assessment and Plan: Cardiac enzymes are negative. The patient has a history of pancreatitis and his lipase is normal. Will repeat his lipase and get a CT of the abdomen. (2) Alcohol withdrawal: Code(s): F10.939 - Alcohol use, unspecified with withdrawal, unspecified Status: Acute Assessment and Plan: Continue with ciwa. Continue with scheduled Librium and p.r.n. Ativan. The patient is diaphoretic and tremulous at this time is also having hallucinations. the patient has been drinking heavily. He has a history of pancreatitis although his lipase is normal today will get a CT of the abdomen as the patient was complaining of some abdominal pain. Continue folic acid and thiamine (3) Hyperlipidemia: Qualifiers: Hyperlipidemia type: unspecified Qualified Code(s): E78.5 - Hyperlipidemia, unspecified Code(s): E78.5 - Hyperlipidemia, unspecified Status: Chronic Assessment and Plan: continue with pravastin (4) Hypertension: Qualifiers: Hypertension type: unspecified Qualified Code(s): I10 - Essential (primary) hypertension Code(s): I10 - Essential (primary) hypertension Status: Chronic Assessment and Plan: Continue with Norvasc, metoprolol (5) Sinus tachycardia: Code(s): R00.0 - Tachycardia, unspecified Status: Acute Assessment and Plan: Most likely secondary to alcohol withdrawals Subjective Date/time seen: 10/26/22 14:38 Interval history: 46-year-old gentleman who presents the emergency department with chief complaint of chest pain.? Patient reports that he does have history of cardiac disease and history of anxiety the patient states that several months ago his father and he is currently experiencing the effects of his father's anniversary of his the patient reports he has been under a fair amount of stress feels very anxious the patient denies suicidal or homicidal ideation the patient states he is extremely tearful and reports that he proceeded to start drinking to try to cope with his stress the patient reports that that probably has not been the best option to help with his grieving as it makes him have chest pain and makes him feel extremely anxious. ?He has a hx of pancreatitis in the past. He is now complaining of epigastric discomfort.? The patient is hallucinating and having tremors.? Pt admitted for chest pain history of alcoholism drinks whisky most days Pt is very tremulous today continue to watch CIWA protocol give Librium scheduled and prn ativan Review of Systems Review of Systems: No specific complaints Exam Const: General: cooperative, healthy appearing, comfortable, no acute distress, well developed, alert, awake, Physically active, diaphoretic, ill appearing, average body habitus, well nourished and overweight Nutritional Appearance: average body habitus, well nourished and overweight Orientation/consciousness: oriented to person, oriented to place, oriented to time and patient oriented x3 Limitations: no limitations HENMT: Head: normal to inspection, No palpable skull fracture present, normocephalic and atraumatic Ears: hearing grossly normal bilaterally and external ears normal Face/Nose/Sinus: Normal external nose present and Normal nares present Eyes: General: appearance normal, both eyes and all related structures Alignment and Position: alignment normal Periorbital: periorbital findings normal Eyelids: eyelids normal Sclera: sclerae normal Pupils: Equal, round and reactive pupils present EOM: EOMs intact bilaterally Neck: Neck: normal visual inspection, full ROM, no lymphadenopathy, trachea midline and supple Chest: Chest palpation & inspection: normal inspection of the chest Resp: Effort & Inspection: normal respiratory effort Auscultati
[2022-10-26 18:50] LABS: Glucose Point of Care 92 mg/dl (65-105)
[2022-10-26] MEDS: PRAVASTATIN SODIUM 20 MG TABLET PO (20:15)
[2022-10-26] MEDS: VENLAFAXINE HCL XR 37.5 MG CAP PO (20:16)
[2022-10-26] MEDS: cloNIDine HCL 0.05 MG TABLET PO (20:16)
[2022-10-26] MEDS: METOPROLOL TARTRATE 50 MG TAB PO (20:16)
[2022-10-26] MEDS: HYDROcodone/acetaminophen (*CRX) 5-325 MG TABLET 1 TAB PO (20:21)
[2022-10-26 20:28] LABS: Glucose Point of Care 111 mg/dl (65-105)
[2022-10-27] VITALS (15 sets, daily range): BP systolic 119–150; BP diastolic 79–91; PULSE 60–83; RESP 16–20; TEMP 36.1–36.6; O2SAT 94–100
[2022-10-27] MEDS: SODIUM CHLORIDE 0.9% IV 1,000 ML 125 ML IV CONT (00:52)
[2022-10-27] MEDS: diphenhydrAMINE HCl INJ 50 MG/ML VIAL 25 MG IM (02:03)
[2022-10-27] MEDS: HALOPERIDOL LACTATE 5 MG/ML VIAL IM (02:03)
[2022-10-27] MEDS: chlordiazePOXIDE (*CRX) 25 MG CAPSULE 75 MG PO ×3 (07:34→17:28)
[2022-10-27] MEDS: HYDROcodone/acetaminophen (*CRX) 5-325 MG TABLET 1 TAB PO ×3 (07:37→23:22)
[2022-10-27] MEDS: amLODIPine BESYLATE 5 MG TABLET PO (08:44)
[2022-10-27] MEDS: THIAMINE HCL 200 MG/2 ML VIAL 100 MG IV PUSH (08:44)
[2022-10-27] MEDS: cloNIDine HCL 0.05 MG TABLET PO ×2 (08:44→20:40)
[2022-10-27] MEDS: METOPROLOL TARTRATE 50 MG TAB PO ×2 (08:45→20:39)
[2022-10-27] MEDS: FOLIC ACID 1 MG/0.2 ML INJ IV PUSH (08:45)
[2022-10-27 12:17] LABS: Glucose Point of Care 132 mg/dl (65-105)
[2022-10-27] MEDS: LORazepam INJ (*CRX) 2 MG/ML VIAL IV PUSH ×2 (13:43→23:22)
--- NOTE | 2022-10-27 14:19 | PM.IMPN ---
Progress Note: A&P Assessment and Plan (1) Chest pain: Code(s): R07.9 - Chest pain, unspecified Status: Acute Assessment and Plan: Cardiac enzymes are negative. The patient has a history of pancreatitis and his lipase is normal. (2) Alcohol withdrawal: Code(s): F10.939 - Alcohol use, unspecified with withdrawal, unspecified Status: Acute Assessment and Plan: Continue with ciwa. Continue with scheduled Librium and p.r.n. Ativan. The patient is diaphoretic and tremulous at this time is also having hallucinations. the patient has been drinking heavily. He has a history of pancreatitis although his lipase is normal CT abdo nil acute. Continue folic acid and thiamine (3) Hyperlipidemia: Qualifiers: Hyperlipidemia type: unspecified Qualified Code(s): E78.5 - Hyperlipidemia, unspecified Code(s): E78.5 - Hyperlipidemia, unspecified Status: Chronic Assessment and Plan: continue with pravastin (4) Hypertension: Qualifiers: Hypertension type: unspecified Qualified Code(s): I10 - Essential (primary) hypertension Code(s): I10 - Essential (primary) hypertension Status: Chronic Assessment and Plan: Continue with Norvasc, metoprolol (5) Sinus tachycardia: Code(s): R00.0 - Tachycardia, unspecified Status: Acute Assessment and Plan: Most likely secondary to alcohol withdrawals Subjective Date/time seen: 10/27/22 14:19 Interval history: 46-year-old gentleman who presents the emergency department with chief complaint of chest pain.? Patient reports that he does have history of cardiac disease and history of anxiety the patient states that several months ago his father and he is currently experiencing the effects of his father's anniversary of his the patient reports he has been under a fair amount of stress feels very anxious the patient denies suicidal or homicidal ideation the patient states he is extremely tearful and reports that he proceeded to start drinking to try to cope with his stress the patient reports that that probably has not been the best option to help with his grieving as it makes him have chest pain and makes him feel extremely anxious. ?He has a hx of pancreatitis in the past. He is now complaining of epigastric discomfort.? The patient is hallucinating and having tremors.? Pt admitted for chest pain history of alcoholism drinks whisky most days Pt is very tremulous yesterday continue to watch CIWA protocol give Librium scheduled and prn ativan Pt is sleeping good today pt received haldol and benadryl at night Pt may leave AMA continue to watch today hopeful DC soon Review of Systems Review of Systems: Pt is sleeping Exam Const: General: cooperative, healthy appearing, comfortable, no acute distress, well developed, alert, awake, Physically active, diaphoretic, ill appearing, average body habitus, well nourished and overweight Nutritional Appearance: average body habitus, well nourished and overweight Orientation/consciousness: oriented to person, oriented to place, oriented to time and patient oriented x3 Limitations: no limitations HENMT: Head: normal to inspection, No palpable skull fracture present, normocephalic and atraumatic Ears: hearing grossly normal bilaterally and external ears normal Face/Nose/Sinus: Normal external nose present and Normal nares present Eyes: General: appearance normal, both eyes and all related structures Alignment and Position: alignment normal Periorbital: periorbital findings normal Eyelids: eyelids normal Sclera: sclerae normal Pupils: Equal, round and reactive pupils present EOM: EOMs intact bilaterally Neck: Neck: normal visual inspection, full ROM, no lymphadenopathy, trachea midline and supple Chest: Chest palpation & inspection: normal inspection of the chest Resp: Effort & Inspection: normal respiratory effort Auscult
[2022-10-27] MEDS: POTASSIUM CHLORIDE 20 MEQ PACKET (FOR LIQUID) PO (17:28)
[2022-10-27] MEDS: VENLAFAXINE HCL XR 37.5 MG CAP PO (20:40)
[2022-10-27] MEDS: PRAVASTATIN SODIUM 20 MG TABLET PO (20:40)
[2022-10-28] VITALS: PULSE 66
[2022-10-28] MEDS: chlordiazePOXIDE (*CRX) 25 MG CAPSULE 75 MG PO (00:59)
[2022-10-28 02:00] VITALS: PULSE 66
[2022-10-28 04:00] VITALS: BP 127/82; PULSE 74; PULSE 76; RESP 20; TEMP 36.6; O2SAT 99
--- NOTE | 2022-10-28 06:02 | PC.NURSE ---
Patient left AMA. See AMA documentation on paper chart. Risks and consequences of leaving extensively discussed with patient. He is A&Ox4 and MD judged him to be of sound mind to sign himself out.
--- NOTE | 2022-12-15 19:25 | PM.EVENT ---
Event Note Event Note Event Note: I was called to evaluate patient to his room after patient threatened to leave upon arrival to patient's room patient is awake alert oriented x3 his is gather in his belongings patient exhibits decision making capacity not a threat to himself or others. Patient left against medical advice.
== END 2022-10-28 06:02 | disposition left against medical advice (07) | DRG 203 ==
LOC: ANHED 07:33 → ANHIMU 17:05
PROVIDERS: Emergency Medicine; Nurse Practitioner; Admitting Provider Hospitalist; Emergency Provider Emergency Medicine; PCP Physician Assistant; Visit Provider Family Medicine
DX: R07.9 Chest pain, unspecified (principal); E78.5 Hyperlipidemia, unspecified; F10.232 Alcohol dependence with withdrawal with perceptual disturbance; G25.2 Other specified forms of tremor; R00.0 Tachycardia, unspecified; I10 Essential (primary) hypertension; F41.9 Anxiety disorder, unspecified; F17.210 Nicotine dependence, cigarettes, uncomplicated
CPT/HCPCS: 36415; 71045; 74177; 80053; 80307; 81001; 82948; 83605; 83615; 83690; 83735; 84443; 84484; 85025; 85610; 85730; 93005; 96361; 96374; 96375; 96376; 99285; A9270; G0378; G0379; J1200; J1630; J2060; J2405; J3360; J3411; J7030; Q9967

== ENCOUNTER 2022-12-21 11:07 | Inpatient (IN) | payer OTHER, SELFPAY ==
[2022-12-21] VITALS (19 sets, daily range): BP systolic 123–157; BP diastolic 71–87; PULSE 111–128; RESP 15–22; TEMP 36.8–37.4; O2SAT 93–99; BMI 30.9
--- NOTE | ~2022-12-21 | CT_ITS ---
EXAMINATION: CTA chest PE abdomen pel DATE: 12/21/2022 12:59 INDICATION: Chest pain, shortness of breath. Abdominal pain. TECHNIQUE: Computed tomography angiography (CTA) of the chest was performed with 100 mL Omnipaque-350 intravenous contrast timed to evaluate the pulmonary arteries. Coronal maximum intensity projection 3D-reconstructions were created by the technologist. Automated exposure control and iterative reconst ruction technique were employed. Exam dose: 2732.27 mGy-cm total exam DLP. COMPARISON: 12/21/2022 portable AP chest 10/25/2022 CT abdomen pelvis FINDINGS: There is diagnostic contrast enhancement of the pulmonary arteries and no apparent pulmonar y embolism. No thoracic aortic aneurysm or dissection is detected. No hilar or mediastinal mass lesion or lymphadenopathy. Normal heart size. No pericardial or pleural effusion. There is dependent right upper and lower lobe mild atelectasis. No pulmonary infiltrate or consolidation or pulmonary mass lesion is evident. Diffuse hepatic steatosis. No bile duct or pancreatic duct dilatation. No hepatic, splenic, pancreati c, and adrenal or renal space-occupying mass lesion or urinary tract calculus or hydroureteronephrosi s is detected. Mild prostate calcification. The urinary bladder is unremarkable. Normal caliber of the abdominal aorta. No intraperitoneal or retroperitoneal or pelvic mass lesion or adenopathy or ascites. Normal appendix. Occasional diverticula of left and right colon; no CT evidence of diverticulitis is noted. There are multiple small bowel air-fluid levels in the upper and midabdomen which may be due to enter itis or mild adynamic ileus. No bowel obstruction, bowel wall thickening, pneumatosis or intraperitoneal free air. Included skeletal structures are unremarkable. IMPRESSION: No evidence of pulmonary embolism Hepatic steatosis Normal appendix Multiple small bowel air-fluid levels which may be due to enteritis or mild adynamic ileus Diverticulosis of the colon; no CT evidence of diverticulitis Reviewed, dictated and finalized at [facility]. Reviewed, dictated and finalized at [facility]. IMPRESSION: No evidence of pulmonary embolism Hepatic steatosis Normal appendix Multiple small bowel air-fluid levels which may be due to enteritis or mild aye namic ileus Diverticulosis of the colon; no CT evidence of diverticulitis
--- NOTE | ~2022-12-21 | CT_ITS ---
EXAMINATION: CT abdomen pelvis wo con DATE: 12/25/2022 15:42 INDICATION: severe ABD pain TECHNIQUE: Computed tomography (CT) of the abdomen and pelvis was performed without intravenous contr ast. Automated exposure control and iterative reconstruction technique were employed. The dose-length product was 808.16 mGy-cm. COMPARISON: None. FINDINGS: Lower thorax: Unremarkable Liver: Steatosis. Biliary/Gallbladder: Gallbladder is partially collapsed. No bile duct dilation. Pancreas: No mass or duct dilation. Spleen: Normal. Adrenals:No mass. Kidneys: No suspicious mass, obstructing stone, or hydronephrosis. Mild bilateral perinephric strandi ng. GI tract: No small or large bowel dilation. Mildly chronically dilated appendix which is air-filled w ithout surrounding inflammatory change. Minimal scattered diverticuli without CT evidence of divertic ulosis Mesentery/Peritoneum: No ascites, mass, or free air. Retroperitoneum: No mass. Pelvis: Pelvic organs are within normal limits. Soft Tissues: Soft tissues and body wall unremarkable. Bones: No acute osseous finding. IMPRESSION: Steatosis. Otherwise, no acute abdominopelvic process detected Reviewed, dictated and finalized at location K.
--- NOTE | ~2022-12-21 | XR_ITS ---
XR chest 1V portable DATE: 12/21/2022 11:36 INDICATION: Chest pain TECHNIQUE: Portable supine AP chest on 12/21/2022 at 1132 hours COMPARISON: 10/24/2022 portable AP chest at 0624 FINDINGS: Normal heart size. No hilar or mediastinal enlargement is noted. Small pulmonary opacity or focal infiltrate or atelectasis is suggested in the lateral right lower primitivo ng. Recommend PA and lateral chest radiographs and if necessary CT thorax to exclude any pulmonary ma ss lesion. The lungs otherwise appear clear. No pleural effusion or pulmonary vascular congestion or pneumothora x. Included skeletal structures are unremarkable. IMPRESSION: Small pulmonary opacity versus mild focal infiltrate or atelectasis, lateral right lower lung; PA and lateral chest regress recommended, CT thorax if necessary Reviewed, dictated and finalized at location B. IMPRESSION: Small pulmonary opacity versus mild focal infiltrate or atelectasis , lateral right lower lung; PA and lateral chest regress recommended, CT thorax if necessary
--- NOTE | 2022-12-21 11:14 | ECG_ITS ---
Measurements Intervals [place] Rate: 110 P: -14 [place]: 154 QRS: -50 QRSD: 92 T: 33 QT: 343 QTc: 465 Interpretive Statements SINUS TACHYCARDIA LEFT ANTERIOR FASCICULAR BLOCK [QRS AXIS <= -45, QR IN I, RS IN II] BORDERLINE ECG COMPARED TO ECG 10/24/2022 05:02:43 LEFT ANTERIOR FASCICULAR BLOCK NOW PRESENT Electronically Signed On 12-21-2022 18:29:10 CDT by Sae Moseley M.D.
--- NOTE | 2022-12-21 11:29 | ED.ALCOHOL ---
HPI - Alcohol General Chief Complaint: Alcohol Stated Complaint: cp/etoh Time Seen by Provider: 12/21/22 11:08 History of Present Illness HPI narrative: 47-year-old male present to the emergency department for evaluation of epigastric pain. Patient denies any previous cardiac history. Patient states that chest pain for the last 3 weeks. Patient does admit to drinking alcohol heavily, whiskey over the last 3 weeks. Patient reports he does have a prior history of pancreatitis. Patient also reports having prior [place] and CVA. Patient has no cardiac stents. Related Data Home Medications Medication Instructions Recorded Confirmed pravastatin 20 mg tablet 20 mg PO HS 06/28/21 12/21/22 hydroxyzine HCl 25 mg tablet 25 mg PO TID PRN Anxiety 07/01/21 12/21/22 venlafaxine 37.5 mg 37.5 mg PO HS 07/01/21 12/21/22 capsule,extended release 24 hr folic acid 1 mg tablet 1 mg PO DAILY 05/21/22 12/21/22 thiamine HCl (vitamin B1) 100 mg 100 mg PO DAILY 05/21/22 12/21/22 tablet Allergies Allergy/AdvReac Type Severity Reaction Status Date / Time aspirin Allergy Severe throat Verified 10/24/22 06:28 swelling latex AdvReac Mild Rash Verified 10/24/22 06:28 Review of Systems Review of Systems: All systems reviewed & are unremarkable except as noted in HPI and below PMFSH Past Medical History Medical History Anxiety Helicobacter pylori (H. pylori) Hyperlipidemia Hypertension Lipoma of back Pancreatitis (~05/22/22) Right foot drop Thrombocytopenia Vocal cord polyps Surgical History Surgical History History of vocal cord polypectomy Status post excision of lipoma Family History Family History Father Diabetes mellitus Heart disease FH: CABG (coronary artery bypass surgery) Cancer Hypertension Mother Heart disease Chronic obstructive pulmonary disease Hypertension Congestive heart failure Sibling Hypertension Social History Social History (Updated 10/25/22 @ 01:30 by Benita Mitchell NP) Social History: The patient currently lives with his mother. He works for [employer]. He is . Surrogate medical decision maker: Cheyenne Seymour, mother. Code status: Full code. Smoking packs per day: 1 Smoking cigarettes per day: 20.0 Years smoked: 35 Smoking pack-years: 35.00 Smoking status: Heavy tobacco smoker Tobacco type: cigarettes Second hand tobacco smoke exposure: Yes Smoking end date: 03/06/11 Alcohol intake: current Drinks per week: 20 Alcohol use details: Drinks a pt of whiskey or a 6 pack most days of the week, sometimes won't drink for a couple months and sometimes he will drink more than that. Substance use: current Substance use type: marijuana Other substance usage details: Rarely Last use: 05/03/22 Lack of Transportation: No Lack of Food: Never True Current Housing: I Have Housing Concerned About Future Housing: No Difficulty Paying Gas/Electric Bills: No Difficulty Paying for Meds: No Currently Unemployed: No Education: Grade School Difficulty w/ Childcare or Family Care: No Living arrangements: with family Spiritual care concerns: No Exam Narrative: APPEARANCE: Well appearing, no pain, no distress, well-nourished. HEAD: normocephalic, atraumatic. EYES: PERRLA/EOMI, conjunctivae clear. NOSE: Normal no drainage EARS:TMS clear with good light reflex. THROAT: Pharynx clear, no exudate. NECK: Supple. No adenopathy, no masses. RESPIRATORY: Airway patent, respirations nonlabored. Clear to auscultation bilaterally, no rales, rhonchi, wheezing. CARDIOVASCULAR: Regular rate and rhythm without murmurs rubs or gallops. ABDOMINAL: Reproducible epigastric tenderness to palpation MUSCULOSKELETAL: Moves all extremities. Strength/ROM intact, No edema, No calf tenderness.
[2022-12-21] MEDS: SODIUM CHLORIDE 0.9% IV 1,000 ML 999 ML IV CONT (11:36)
[2022-12-21] MEDS: PANTOPRAZOLE SODIUM IV 40 MG VIAL IV PUSH (11:37)
[2022-12-21 11:40] LABS: Basophils Percent Auto 0.2 % (0.2-1.2); Hematocrit 41.5 % (42.0-52.0); Hemoglobin 14.5 g/dL (14.0-18.0); Immature Granulocyte Absolute 0.01 K/mm3 (0.00-0.031); Immature Granulocyte Percent A 0.1 % (0-0.5); Lymphocytes Percent Auto 7.2 % (18.3-44.2); Mean Corpuscular HGB Conc 34.9 g/dl (32-36); Mean Corpuscular Hemoglobin 31.3 pg (26-34); Mean Corpuscular Volume 89.6 fl (80-100); Monocytes Absolute Auto 1.4 K/mm3 (0.1-0.6); Monocytes Percent Auto 16.2 % (2.6-8.5); Neutrophils Absolute Auto 6.4 K/mm3 (1.3-6.7); Neutrophils Percent Auto 76.3 % (45.5-73.1); Platelet Count Result 106 k/mm3 (150-375); Red Blood Count 4.63 M/mm3 (4.6-6.20); Red Cell Distribution Width 14.6 % (11.5-14.5); White Blood Count 8.3 K/mm3 (4.5-10.0)
[2022-12-21] MEDS: LORazepam INJ (*CRX) 2 MG/ML VIAL 1 MG IV PUSH (11:43)
[2022-12-21 11:51] LABS: Alanine Aminotransferase 34 U/L (6-50); Albumin Level 4.9 g/dL (3.5-5.1); Alkaline Phosphatase 93 U/L (38-126); Anion Gap 25 mmol/L (8-16); Aspartate Amino Transferase 59 U/L (17-59); Bilirubin,Total 1.3 mg/dL (0.2-1.3); Blood Urea Nitrogen 17 mg/dL (9-20); Carbon Dioxide 17 mmol/L (22-30); Chloride 94 mmol/L (98-107); Estimated CRCL calculation 97 ml/min; Estimated Glomerular Filt Rate > 60; Glucose 129 mg/dL (65-110); Sodium 136 mmol/L (137-145)
[2022-12-21 11:55] LABS: INR 0.9; Prothrombin Time 12.5 Seconds (11.1-14.7)
[2022-12-21 11:56] LABS: Partial Thromboplastin Time 27.1 SECONDS (22.3-36.8)
[2022-12-21 12:08] LABS: Troponin I 0.074 ng/mL (0.000-0.034)
[2022-12-21 12:10] LABS: Ethanol 420 mg/dL (<10)
[2022-12-21 13:30] LABS: Appearance Urine Clear (Clear); Bacteria Urine None Seen /hpf; Bilirubin Urine Negative (Negative); Blood Urine Trace (Negative); Color Urine Yellow (Yellow); Glucose Urine UA Negative (Negative); Ketones Urine 3+ mg/dL (Negative); Leukocyte Esterase Ur Negative LEU/UL (Negative); Nitrate Urine Negative (Negative); Protein Urine 2+ mg/dL (Negative); RBC Urine 0-2 /hpf (0-2); Squamous Epithelial Cell Urine None seen /hpf (Few); Urobilinogen Urine 0.2 mg/dL (<2.0); WBC Urine 0-5 /hpf
[2022-12-21 13:36] LABS: Add Urine Microscopic? YES
--- NOTE | 2022-12-21 13:38 | ECG_ITS ---
Measurements Intervals [place] Rate: 114 P: -18 [place]: 146 QRS: -49 QRSD: 87 T: 44 QT: 353 QTc: 488 Interpretive Statements SINUS TACHYCARDIA LEFT ANTERIOR FASCICULAR BLOCK [QRS AXIS <= -45, QR IN I, RS IN II] BORDERLINE ECG COMPARED TO ECG 12/21/2022 11:19:12 NO SIGNIFICANT CHANGES Electronically Signed On 12-21-2022 18:35:49 CDT by Sae Moseley M.D.
--- NOTE | 2022-12-21 13:38 | PC.NURSE ---
Pt voided on floor. States he was unable to use urinal.
[2022-12-21 13:49] LABS: Barbiturate Screen Urine Negative (Negative); Benzodiazepines Screen Urine Negative (Negative)
[2022-12-21 13:50] LABS: Amphetamine Screen Urine Negative (Negative); Cannabinoid Screen Urine Negative (Negative); Cocaine Screen Urine Negative (Negative); Methadone Screen Urine Negative (Negative); Opiate Screen Urine Negative (Negative); Phencyclidine Screen Urine Negative (Negative)
[2022-12-21 14:43] LABS: Troponin I 0.104 ng/mL (0.000-0.034)
--- NOTE | 2022-12-21 17:58 | ADMGEN ---
This patient, Carmelo Seymour Jr., was admitted to IMU Room 202-01@ 1710 Patient/family oriented to hospital policies and general routines including ID bracelet, bed and alarms, visiting hours, pain management, procedures, bathroom and other care routines, personal items, smoking policy, room service/diet, and visiting hours. Information on how to activate the Rapid Response Team has been discussed. Patient/Family are encouraged to report perceived risks to care and to ask questions if they do not understand what they are told or what they should do.
[2022-12-21 18:02] LABS: Troponin I 0.091 ng/mL (0.000-0.034)
[2022-12-21] MEDS: SODIUM CHLORIDE 0.9% IV 1,000 ML 125 ML IV CONT (18:30)
[2022-12-21] MEDS: LORazepam INJ (*CRX) 2 MG/ML VIAL IV PUSH (19:13)
--- NOTE | 2022-12-21 19:57 | PM.IMHP ---
H&P: HPI History of Present Illness Date/Time: 12/21/22 19:57 Chief Complaint: epigastric pain Narrative: THIS IS A 47-YEAR-OLD MALE WITH PAST MEDICAL HISTORY SIGNIFICANT FOR ALCOHOL DEPENDENCE, CHRONIC PANCREATITIS. PATIENT PRESENTS TO THE EMERGENCY ROOM DUE TO BINGE DRINKING FOR THE LAST 3 WEEKS OR SO POOR PER ORALLY INTAKE COMES WITH EPIGASTRIC PAIN. PATIENT IS LIMITED GIVEN HISTORY TAKING DUE TO ALCOHOL INTOXICATION INITIAL ALCOHOL LEVEL WAS IN THE 400S. PATIENT DENIES ANY FEVERS OR RIGORS. PRELIMINARY WORKUP WAS SIGNIFICANT FOR ELEVATED TROPONINS. PATIENT HAS BEEN ADMITTED TO IMU XR chest 1V portable DATE: 12/21/2022 11:36 INDICATION: Chest pain? TECHNIQUE: Portable supine AP chest on 12/21/2022 at 1132 hours? COMPARISON: 10/24/2022 portable AP chest at 0624? FINDINGS: Normal heart size. No hilar or mediastinal enlargement is noted. Small pulmonary opacity or focal infiltrate or atelectasis is suggested in the lateral right lower lung. Recommend PA and lateral chest radiographs and if necessary CT thorax to exclude any pulmonary mass lesion. The lungs otherwise appear clear. No pleural effusion or pulmonary vascular congestion or pneumothorax. Included skeletal structures are unremarkable. IMPRESSION: Small pulmonary opacity versus mild focal infiltrate or atelectasis, lateral right lower lung; PA and lateral chest regress recommended, CT thorax if necessary? EXAMINATION: CTA chest PE abdomen pel DATE: 12/21/2022 12:59 INDICATION: Chest pain, shortness of breath. Abdominal pain. TECHNIQUE: Computed tomography angiography (CTA) of the chest was performed with 100 mL Omnipaque-350 intravenous contrast timed to evaluate the pulmonary arteries. Coronal maximum intensity projection 3D-reconstructions were created by the technologist. Automated exposure control and iterative reconstruction technique were employed. Exam dose:? 2732.27 mGy-cm total exam DLP.? COMPARISON: 12/21/2022 portable AP chest 10/25/2022 CT abdomen pelvis FINDINGS: There is diagnostic contrast enhancement of the pulmonary arteries and no apparent pulmonary embolism. No thoracic aortic aneurysm or dissection is detected. No hilar or mediastinal mass lesion or lymphadenopathy. Normal heart size. No pericardial or pleural effusion. There is dependent right upper and lower lobe mild atelectasis. No pulmonary infiltrate or consolidation or pulmonary mass lesion is evident. Diffuse hepatic steatosis. No bile duct or pancreatic duct dilatation. No hepatic, splenic, pancreatic, and adrenal or renal space-occupying mass lesion or urinary tract calculus or hydroureteronephrosis is detected. Mild prostate calcification. The urinary bladder is unremarkable. Normal caliber of the abdominal aorta. No intraperitoneal or retroperitoneal or pelvic mass lesion or adenopathy or ascites. Normal appendix. Occasional diverticula of left and right colon; no CT evidence of diverticulitis is noted. There are multiple small bowel air-fluid levels in the upper and midabdomen which may be due to enteritis or mild adynamic ileus. No bowel obstruction, bowel wall thickening, pneumatosis or intraperitoneal free air. Included skeletal structures are unremarkable. IMPRESSION: No evidence of pulmonary embolism Hepatic steatosis Normal appendix Multiple small bowel air-fluid levels which may be due to enteritis or mild adynamic ileus Diverticulosis of the colon; no CT evidence of diverticulitis Review of Systems Review of Systems: epigastric pain, binge drinking x 3 weeks ROS unobtainable: Yes unobtainable due to mental status (ALCOHOL INTOXICATION, LETHARGY) PMFSH Past Medical History Medical History Anxiety Helicobacter pylori (H. pylori) Hyperlipidemia Hypertension Lipoma of back Pancreatitis (~05/22/22) Right foot drop Thrombocytopenia Vocal cord polyps Surgical History Surgical History (Reviewed 10/25/22 @ 01:2
[2022-12-21 23:20] LABS: Glucose Point of Care 104 mg/dl (65-105)
[2022-12-22] VITALS (23 sets, daily range): BP systolic 124–155; BP diastolic 77–93; PULSE 74–122; RESP 16–24; TEMP 36.7–37.3; O2SAT 95–100
--- NOTE | 2022-12-22 | ECHO_ITS ---
Patient Info Name: Carmelo Seymour Age: 47 years : 1975 Gender: Male Ht: 68 in Wt: 203 lbs BSA: 2.13 m2 HR: 98 bpm BP: 124 / 79 mmHg Heart Rhythm: Tachycardia, Sinus Rhythm Technical Quality: Good Exam Date: 12/22/2022 8:56 AM Exam Location: [facility] Card Pulmonary Patient Status: Inpatient Admit Date: 12/21/2022 Staff Ordering Physician: Brandi Richardson MD Photographic Artist: Livia Sarmiento RDCS Attending Provider: Neela Tubbs MD Referring Physician: Dylan RITTER; Exam Type: CA echo doppler color flow Study Info Indications - elevated troponin Complete two-dimensional, color flow and Doppler transthoracic echocardiogram is performed. Summary 1. Complete two-dimensional, color flow and Doppler transthoracic echocardiogram is performed. 2. Left ventricular chamber dimension is normal. 3. Left ventricular systolic function is normal, estimated at 60-65%. 4. There is mildly increased left ventricular wall thickness. 5. The left ventricular diastolic function is normal. 6. Right atrial chamber dimension is mildly enlarged. 7. There is no mitral valve regurgitation. 8. There is trace tricuspid valve regurgitation. 9. No pulmonary hypertension, estimated pulmonary arterial systolic pressure is 30 mmHg. 10. There is no aortic valve stenosis. Left Ventricle Left ventricular chamber dimension is normal. Left ventricular systolic function is normal, estimated at 60-65%. There is mildly increased left ventricular wall thickness. The left ventricular diastolic function is normal. Right Ventricle Right ventricular chamber dimension is normal. Right ventricular systolic function is normal. Left Atria Left atrial chamber dimension is normal. Right Atria Right atrial chamber dimension is mildly enlarged. Aortic Valve The aortic valve is not well visualized. There is no aortic valve stenosis. There is no aortic valve regurgitation. Pulmonic Valve The pulmonic valve is not well visualized. Mitral Valve The mitral valve has normal leaflets. There is no mitral valve regurgitation. Tricuspid Valve The tricuspid valve leaflets are normal. There is trace tricuspid valve regurgitation. No pulmonary hypertension, estimated pulmonary arterial systolic pressure is 30 mmHg. Pericardium/Pleural The pericardium appears normal. There is trivial pericardial effusion. Aorta The aortic root size at the sinus of Valsalva is normal. There is mild aortic atherosclerosis. Left Ventricular Outflow Tract Name Value Normal LVOT 2D LVOT Diameter 2.0 cm LVOT Doppler LVOT Peak Gradient 6 mmHg LVOT Mean Gradient 3 mmHg LVOT VTI 23 cm LVOT VTI/AV VTI Ratio 0.9 LVOT Stroke Volume 77 ml LVOT CO 7.6 l/min LVOT CI 3.6 l/min/m2 Pulmonic Valve Name Value Normal RVOT Doppler
[2022-12-22] MEDS: VENLAFAXINE HCL XR 37.5 MG CAP PO ×2 (00:47→21:43)
[2022-12-22] MEDS: chlordiazePOXIDE (*CRX) 25 MG CAPSULE 50 MG PO ×5 (00:47→23:46)
[2022-12-22] MEDS: METOPROLOL TARTRATE 25 MG TABLET PO ×3 (00:47→21:44)
[2022-12-22] MEDS: PRAVASTATIN SODIUM 20 MG TABLET PO ×2 (00:48→21:43)
[2022-12-22 01:11] LABS: Hematocrit 34.7 % (42.0-52.0); Hemoglobin 12.1 g/dL (14.0-18.0); Immature Platelet Fraction Pct 7.3 % (0.9-11.2); Mean Corpuscular HGB Conc 34.9 g/dl (32-36); Mean Corpuscular Hemoglobin 31.4 pg (26-34); Mean Corpuscular Volume 90.1 fl (80-100); Mean Platelet Volume 9.9 fl (7.4-10.4); Platelet Count Result 73 k/mm3 (150-375); Red Blood Count 3.85 M/mm3 (4.6-6.20); Red Cell Distribution Width 14.6 % (11.5-14.5); White Blood Count 5.5 K/mm3 (4.5-10.0)
[2022-12-22 01:29] LABS: Anion Gap 15 mmol/L (8-16); Blood Urea Nitrogen 15 mg/dL (9-20); Calcium 7.8 mg/dL (8.4-10.2); Carbon Dioxide 21 mmol/L (22-30); Chloride 93 mmol/L (98-107); Estimated CRCL calculation 139 ml/min; Estimated Glomerular Filt Rate > 60; Glucose 109 mg/dL (65-110); Lipase 603 U/L (23-300); Magnesium 2.1 mg/dL (1.6-2.3); Phosphorus 1.5 mg/dL (2.5-4.5); Potassium 3.6 mmol/L (3.4-5.0); Sodium 129 mmol/L (137-145)
[2022-12-22 01:38] LABS: Band Neutrophils Percent 21 % (0-6); Hypochromasia 1+ (NORMAL); Lymphocytes Absolute Manual 0.44 K/mm3 (1.1-4.5); Monocytes Absolute Manual 0.99 K/mm3 (0.1-0.90); Monocytes Percent Manual 18 % (3-9); Neutrophils Absolute Manual 4.07 K/mm3 (1.3-6.7); Neutrophils Percent Manual 53 % (46-73); Platelet Estimate Decreased (Adequate); Schistocytes None Seen (NORMAL); Tear Drop Cells 1+ (NORMAL); Total Cells Counted 100
[2022-12-22] MEDS: LORazepam INJ (*CRX) 2 MG/ML VIAL 1 MG IV PUSH (03:53)
[2022-12-22] MEDS: DEXTROSE 5%/0.45% SOD CHL 1,000 ML 125 ML IV CONT ×3 (04:30→18:40)
[2022-12-22 04:44] LABS: Hematocrit 34.5 % (42.0-52.0); Hemoglobin 12.1 g/dL (14.0-18.0); Immature Platelet Fraction Pct 8.5 % (0.9-11.2); Mean Corpuscular HGB Conc 35.1 g/dl (32-36); Mean Corpuscular Hemoglobin 31.3 pg (26-34); Mean Corpuscular Volume 89.1 fl (80-100); Mean Platelet Volume 10.5 fl (7.4-10.4); Platelet Count Result 70 k/mm3 (150-375); Red Blood Count 3.87 M/mm3 (4.6-6.20); Red Cell Distribution Width 14.4 % (11.5-14.5)
[2022-12-22 04:54] LABS: Anion Gap 12 mmol/L (8-16); Blood Urea Nitrogen 16 mg/dL (9-20); Carbon Dioxide 25 mmol/L (22-30); Chloride 93 mmol/L (98-107); Estimated CRCL calculation 139 ml/min; Estimated Glomerular Filt Rate > 60; Glucose 96 mg/dL (65-110); Magnesium 2.3 mg/dL (1.6-2.3); Potassium 3.6 mmol/L (3.4-5.0); Sodium 130 mmol/L (137-145)
[2022-12-22 05:16] LABS: Band Neutrophils Percent 20 % (0-6); Lymphocytes Absolute Manual 1.56 K/mm3 (1.1-4.5); Monocytes Absolute Manual 0.72 K/mm3 (0.1-0.90); Monocytes Percent Manual 12 % (3-9); Neutrophils Absolute Manual 3.72 K/mm3 (1.3-6.7); Neutrophils Percent Manual 42 % (46-73); Total Cells Counted 100
[2022-12-22 05:17] LABS: Platelet Estimate Decreased (Adequate)
[2022-12-22 05:18] LABS: Schistocytes None Seen (NORMAL); Tear Drop Cells 1+ (NORMAL)
[2022-12-22] MEDS: PANTOPRAZOLE SODIUM IV 40 MG VIAL IV PUSH (10:02)
[2022-12-22] MEDS: FOLIC ACID 1 MG TABLET PO (10:02)
[2022-12-22] MEDS: amLODIPine BESYLATE 5 MG TABLET PO (10:02)
[2022-12-22] MEDS: THIAMINE HCL 100 MG TABLET PO (10:03)
[2022-12-22 12:29] LABS: Glucose Point of Care 108 mg/dl (65-105)
[2022-12-22] MEDS: NEOMYCIN/POLYMYXIN/DEXAMETH OP SUSP 5 ML BTL 1 DROP EACH EYE ×3 (13:28→21:43)
--- NOTE | 2022-12-22 16:07 | PM.IMPN ---
Progress Note: A&P Assessment and Plan (1) Epigastric abdominal pain: Code(s): R10.13 - Epigastric pain Status: Acute Assessment and Plan: ADMIT TO IMU TROPONINS X3 MINIMALLY ELEVATED NO EKG CHANGES CT ABDOMEN AND PELVIS REVIEWED Elevated lipase at 603. LFTs normal Repeat and monitor (2) Alcohol intoxication: Code(s): F10.929 - Alcohol use, unspecified with intoxication, unspecified Status: Acute Assessment and Plan: SUPPORTIVE CARE On CIWA protocol Tremulous On chlordiazepoxide and Ativan p.r.n. (3) Elevated troponin: Code(s): R79.89 - Other specified abnormal findings of blood chemistry Status: Acute Assessment and Plan: CARDIOLOGY CONSULTED Flat troponin Echocardiogram ordered (4) GERD (gastroesophageal reflux disease): Code(s): K21.9 - Gastro-esophageal reflux disease without esophagitis Status: Acute Assessment and Plan: PPI (5) Tobacco dependence: Code(s): F17.200 - Nicotine dependence, unspecified, uncomplicated Status: Chronic Assessment and Plan: NICOTINE PATCH NEEDED (6) Fatty liver: Code(s): K76.0 - Fatty (change of) liver, not elsewhere classified Status: Acute Assessment and Plan: FOLLOW-UP IN OUTPATIENT SETTING (7) Alcohol dependence: Code(s): F10.20 - Alcohol dependence, uncomplicated Status: Acute Assessment and Plan: CIWA NEEDED Plan Mild hyponatremia Hypophosphatemia Subjective Date/time seen: 12/22/22 16:07 Interval history: Patient feeling anxious and tremulous. Reports abdominal pain no nausea no vomiting Review of Systems Review of Systems: All systems reviewed & are unremarkable except as noted in HPI and below Objective Data Vital Signs Vital Signs: Vital Signs - 24 hr 12/21/22 16:18 12/21/22 16:31 12/21/22 18:00 Temperature Pulse Rate 117 H 117 H Respiratory Rate 22 H Blood Pressure 143/76 H Pulse Oximetry 98 99 Oxygen Delivery 12/21/22 17:15 12/21/22 19:18 12/21/22 20:00 Temperature 99.1 F 99.3 F Pulse Rate 117 H 126 H 128 H Respiratory Rate 20 22 H Blood Pressure 145/72 H 157/71 H Pulse Oximetry 96 96 Oxygen Delivery 12/21/22 23:29 12/22/22 00:47 12/22/22 03:33 Temperature 98.7 F 98.9 F Pulse Rate 121 H 122 H 94 Respiratory Rate 20 20 Blood Pressure 123/81 124/79 Pulse Oximetry 98 96 Oxygen Delivery 12/21/22 20:00 12/21/22 22:00 12/22/22 00:00 Temperature Pulse Rate 113 H 114 H 122 H Respiratory Rate Blood Pressure Pulse Oximetry Oxygen Delivery 12/22/22 02:00 12/22/22 04:00 12/22/22 06:00 Temperature Pulse Rate 102 H 98 98 Respiratory Rate Blood Pressure Pulse Oximetry Oxygen Delivery 12/22/22 07:24 12/22/22 10:03 12/22/22 10:09 Temperature 98.1 F Pulse Rate 101 H 100 Respiratory Rate 24 H Blood Pressure 145/84 H Pulse Oximetry 96 95 Oxygen Delivery Room Air 12/22/22 08:00 12/22/22 08:00 12/22/22 10:00 Temperature Pulse Rate 102 H 100 Respiratory Rate Blood Pressure Pulse Oximetry 95 Oxygen Delivery Room Air 12/22/22 11:59 12/22/22 12:00 12/22/22 14:00 Temperature 99.1 F Pulse Rate 86 90 89 Respiratory Rate 20 Blood Pressure 140/78 Pulse Oximetry 100 Oxygen Delivery 12/22/22 12:00 Temperature Pulse Rate Respiratory Rate Blood Pressure Pulse Oximetry 100 Oxygen Delivery Room Air Intake/Output Intake/Output: Intake & Output 12/19/22 12/20/22 12/21/22 12/22/22 23:59 23:59 23:59 23:59 Intake Total 2000 Output Total 300 Balance 1700 Meds/Results Medications: Active Medications Generic Name Dose Route Start Last Admin Trade Name Sharla PRN Reason Stop Dose Admin Amlodipine Besylate 5 mg 12/22/22 09:00 12/22/22 10:02 Amlodipine Besylate 5 Mg Tablet PO 5 mg QAM LD Administration Chlordiazepoxide HCl 50 mg
--- NOTE | 2022-12-22 16:25 | PM.CNCAR ---
Assessment and Plan Assessment and plan (1) Elevated troponin: Code(s): R79.89 - Other specified abnormal findings of blood chemistry Status: Acute Assessment and Plan: Patient presents with complaints of intermittent vague chest discomfort described as a dullness without noted aggravating or relieving factors without recurrent chest pain since admission. Mild troponin elevation with slight upward trend but without acute ischemia ECG changes suggestive acute coronary syndrome and/or myocardial infarction. This is most likely type 2 infarction secondary to severe alcohol intoxication, degree of alcohol pancreatitis. Echocardiogram reveals preserved LV systolic function without wall motion abnormalities. May consider ischemic evaluation as an outpatient was patient has recovered for acute alcohol intoxication, stabilized with regards to alcohol withdrawal. Continue conservative management at this time. Due to thrombocytopenia increased bleeding risk I would hold off on aspirin particularly given alcohol intoxication, concern for enteritis and increased bleeding risk overall. (2) Alcohol dependence: Qualifiers: Substance use status: in withdrawal Code(s): F10.20 - Alcohol dependence, uncomplicated Status: Acute Assessment and Plan: Patient presented with acute intoxication now as undergoing alcohol withdrawal and on protocol. Will defer to primary service with use of chlordiazepoxide, lorazepam, thiamin, pantoprazole,, Zofran. (3) Epigastric abdominal pain: Code(s): R10.13 - Epigastric pain Status: Acute Assessment and Plan: As above, secondary to alcohol intoxication, history pancreatitis and or enteritis as suggested by CT. Defer primary service for further management. (4) Chest pain: Code(s): R07.9 - Chest pain, unspecified Status: Acute Assessment and Plan: Resolved. Atypical, vague no reported exertional component and patient cannot recall any other detail with regards to his chest pain other than he does not have chest pain or present. Do not feel this is consistent with acute coronary syndrome. Nonetheless. Given his thrombocytopenia, alcohol withdrawal, history of noncompliance having recently left the hospital against medical advice conservative management is recommended. Patient's current behavior is destructive and evidence of self-harm. Patient must undergo substance abuse counseling and rehabilitation if feasible. Defer to primary service with the assistance of social services counselor. (5) Thrombocytopenia: Code(s): D69.6 - Thrombocytopenia, unspecified Status: Acute Assessment and Plan: Chronic, variable. Follow H&H. Platelet count 09583 without evidence of active bleed. History of Present Illness History of Present Illness Consult date/time: Date of service: 12/22/22 15:25 Requesting physician: Brandi Richardson MD Consult reason: Other (Elevated troponin) Reason For Visit: alcohol withdrawl,abdominal pain,chest pain Narrative: Patient is a 47-year-old male with past medical history significant for alcohol abuse, chronic pancreatitis who has been drinking heavily over the past several weeks complaining of epigastric pain and weakness. When initially asked patient denied having chest pain but then on further clarification he states he previously had experienced chest pain but was unable to describe other than a mild dullness mid chest. He does not recall any other associated symptoms, aggravating or relieving factors. He does not recall having symptoms similar in the past and denies having prior known cardiac history or prior myocardial infarction. At presentation, his ethyl alcohol level was very high at 420. Remainder of his drug screen was negative. Patient is hyponatremic at presentation sodium 136 currently 130 and hypochloremic. Serial troponins mildly elevated 0.074, 0.104, 0.091. Lipase was elevated at
[2022-12-22] MEDS: POTASSIUM PHOS/SODIUM PHOS 250 MG TABLET PO (17:37)
[2022-12-22 18:27] LABS: Glucose Point of Care 153 mg/dl (65-105)
[2022-12-22 23:50] LABS: Glucose Point of Care 132 mg/dl (65-105)
[2022-12-23] VITALS (21 sets, daily range): BP systolic 125–152; BP diastolic 88–99; PULSE 64–97; RESP 16–20; TEMP 36.3–37.2; O2SAT 96–98
[2022-12-23] MEDS: DEXTROSE 5%/0.45% SOD CHL 1,000 ML 125 ML IV CONT ×2 (02:40→11:12)
[2022-12-23 04:55] LABS: Hematocrit 41.3 % (42.0-52.0); Hemoglobin 14.1 g/dL (14.0-18.0); Immature Platelet Fraction Pct 11.9 % (0.9-11.2); Mean Corpuscular HGB Conc 34.1 g/dl (32-36); Mean Corpuscular Hemoglobin 31.3 pg (26-34); Mean Corpuscular Volume 91.8 fl (80-100); Mean Platelet Volume 12.4 fl (7.4-10.4); Platelet Count Result 61 k/mm3 (150-375); Red Cell Distribution Width 14.2 % (11.5-14.5); White Blood Count 6.6 K/mm3 (4.5-10.0)
[2022-12-23 05:18] LABS: Alanine Aminotransferase 33 U/L (6-50); Albumin Level 3.8 g/dL (3.5-5.1); Alkaline Phosphatase 71 U/L (38-126); Anion Gap 5 mmol/L (8-16); Aspartate Amino Transferase 54 U/L (17-59); Blood Urea Nitrogen 13 mg/dL (9-20); Calcium 8.4 mg/dL (8.4-10.2); Carbon Dioxide 31 mmol/L (22-30); Chloride 97 mmol/L (98-107); Estimated CRCL calculation 199 ml/min; Estimated Glomerular Filt Rate > 60; Glucose 128 mg/dL (65-110); Magnesium 2.5 mg/dL (1.6-2.3); Phosphorus 2.4 mg/dL (2.5-4.5); Potassium 2.6 mmol/L (3.4-5.0); Sodium 133 mmol/L (137-145)
[2022-12-23 05:31] LABS: Atypical Lymphocytes Present; Band Neutrophils Percent 22 % (0-6); Hypochromasia 1+ (NORMAL); Lymphocytes Absolute Manual 1.18 K/mm3 (1.1-4.5); Lymphocytes Percent Manual 18 % (18-44); Monocytes Absolute Manual 0.72 K/mm3 (0.1-0.90); Monocytes Percent Manual 11 % (3-9); Neutrophils Absolute Manual 4.68 K/mm3 (1.3-6.7); Neutrophils Percent Manual 49 % (46-73); Platelet Estimate Decreased (Adequate); Schistocytes None Seen (NORMAL); Tear Drop Cells 1+ (NORMAL); Total Cells Counted 100
[2022-12-23] MEDS: POTASSIUM PHOS,M-BASIC-D-BASIC 40 MMOL in SODIUM CHLORIDE 0.9% IV 250 ML 43.89 MMOL IVPB (06:24)
[2022-12-23] MEDS: chlordiazePOXIDE (*CRX) 25 MG CAPSULE 50 MG PO ×3 (06:24→17:49)
[2022-12-23] MEDS: FOLIC ACID 1 MG TABLET PO (08:18)
[2022-12-23] MEDS: PANTOPRAZOLE SODIUM IV 40 MG VIAL IV PUSH (08:18)
[2022-12-23] MEDS: METOPROLOL TARTRATE 25 MG TABLET PO ×2 (08:18→20:43)
[2022-12-23] MEDS: THIAMINE HCL 100 MG TABLET PO (08:18)
[2022-12-23] MEDS: NEOMYCIN/POLYMYXIN/DEXAMETH OP SUSP 5 ML BTL 1 DROP EACH EYE ×4 (08:19→20:44)
[2022-12-23] MEDS: amLODIPine BESYLATE 5 MG TABLET PO (08:19)
--- NOTE | 2022-12-23 10:13 | PM.IMPN ---
Progress Note: A&P Assessment and Plan (1) Epigastric abdominal pain: Code(s): R10.13 - Epigastric pain Status: Acute Assessment and Plan: ADMIT TO IMU TROPONINS X3 MINIMALLY ELEVATED NO EKG CHANGES CT ABDOMEN AND PELVIS REVIEWED Elevated lipase at 603. LFTs normal Repeat and monitor (2) Alcohol intoxication: Code(s): F10.929 - Alcohol use, unspecified with intoxication, unspecified Status: Acute Assessment and Plan: SUPPORTIVE CARE On CIWA protocol Tremulous On chlordiazepoxide and Ativan p.r.n. (3) Elevated troponin: Code(s): R79.89 - Other specified abnormal findings of blood chemistry Status: Acute Assessment and Plan: CARDIOLOGY CONSULTED Flat troponin Echocardiogram reviewed (4) GERD (gastroesophageal reflux disease): Code(s): K21.9 - Gastro-esophageal reflux disease without esophagitis Status: Acute Assessment and Plan: PPI (5) Tobacco dependence: Code(s): F17.200 - Nicotine dependence, unspecified, uncomplicated Status: Chronic Assessment and Plan: NICOTINE PATCH NEEDED (6) Fatty liver: Code(s): K76.0 - Fatty (change of) liver, not elsewhere classified Status: Acute Assessment and Plan: FOLLOW-UP IN OUTPATIENT SETTING (7) Alcohol dependence: Qualifiers: Substance use status: in withdrawal Code(s): F10.20 - Alcohol dependence, uncomplicated Status: Acute Assessment and Plan: CIWA NEEDED Plan Mild hyponatremia Hypophosphatemia Subjective Date/time seen: 12/23/22 10:13 Interval history: Patient feeling anxious and tremulous. Reports abdominal pain no nausea no vomiting Review of Systems Review of Systems: All systems reviewed & are unremarkable except as noted in HPI and below Exam Narrative: APPEARANCE: Well appearing, no pain, no distress, well-nourished. HEAD: normocephalic, atraumatic. EYES: PERRLA/EOMI, conjunctivae clear. NOSE: Normal no drainage THROAT: Pharynx clear, no exudate. NECK: Supple. No adenopathy, no masses. RESPIRATORY: Airway patent, respirations nonlabored. Clear to auscultation bilaterally, no rales, rhonchi, wheezing. CARDIOVASCULAR: Regular rate and rhythm without murmurs rubs or gallops. ABDOMINAL: Reproducible epigastric tenderness to palpation MUSCULOSKELETAL: Moves all extremities. Strength/ROM intact, No edema, No calf tenderness. NEURO: Alert. Cranial nerves II through XII intact. SKIN: Warm, dry. Normal Color Objective Data Vital Signs Vital Signs: Vital Signs - 24 hr 12/22/22 11:59 12/22/22 12:00 12/22/22 14:00 Temperature 99.1 F Pulse Rate 86 90 89 Pulse Rate [Monitor] Respiratory Rate 20 Blood Pressure 140/78 Pulse Oximetry 100 Oxygen Delivery 12/22/22 12:00 12/22/22 16:00 12/22/22 16:00 Temperature 98.9 F Pulse Rate 83 88 Pulse Rate [Monitor] Respiratory Rate 16 Blood Pressure 147/77 H Pulse Oximetry 100 96 Oxygen Delivery Room Air 12/22/22 18:00 12/22/22 16:00 12/22/22 19:36 Temperature 98.5 F Pulse Rate 100 90 Pulse Rate [Monitor] Respiratory Rate 18 Blood Pressure 155/93 H Pulse Oximetry 96 97 Oxygen Delivery Room Air 12/22/22 20:45 12/22/22 21:44 12/22/22 20:00 Temperature Pulse Rate 91 Pulse Rate [Monitor] Respiratory Rate Blood Pressure Pulse Oximetry 97 Oxygen Delivery Room Air Room Air 12/22/22 20:00 12/22/22 23:12 12/22/22 23:46 Temperature 98.6 F Pulse Rate 74 Pulse Rate [Monitor] 90 74 Respiratory Rate 20 Blood Pressure 155/93 H 131/81 131/81 Pulse Oximetry 97 Oxygen Delivery 12/23/22 00:00 12/22/22 20:00 12/22/22 22:00 Temperature Pulse Rate 86 88 Pulse Rate [Monitor] Respiratory Rate Blood Pressure Pulse Oximetry Oxygen Delivery Room Air 12/23/22 00:00 12/23/22 03:30 12/23/22 02:00 Temperature 98.2 F Pulse Rate 72 80 80 Pulse
[2022-12-23 12:27] LABS: Glucose Point of Care 119 mg/dl (65-105)
[2022-12-23] MEDS: IBUPROFEN 400 MG TABLET 800 MG PO (16:05)
[2022-12-23] MEDS: POTASSIUM CHLORIDE 20 MEQ ER TABLET 40 MEQ PO (16:06)
[2022-12-23] MEDS: PRAVASTATIN SODIUM 20 MG TABLET PO (20:44)
[2022-12-23] MEDS: hydrOXYzine HCL 25 MG TABLET PO (20:44)
[2022-12-23] MEDS: VENLAFAXINE HCL XR 37.5 MG CAP PO (20:44)
[2022-12-24] VITALS (20 sets, daily range): BP systolic 126–148; BP diastolic 88–101; PULSE 60–92; RESP 16–20; TEMP 36.1–36.8; O2SAT 96–98
[2022-12-24] MEDS: chlordiazePOXIDE (*CRX) 25 MG CAPSULE 50 MG PO ×5 (00:19→23:55)
[2022-12-24 00:24] LABS: Glucose Point of Care 98 mg/dl (65-105)
[2022-12-24 05:07] LABS: Basophils Percent Auto 0.5 % (0.2-1.2); Eosinophils Absolute Auto 0.2 K/mm3 (0-0.3); Eosinophils Percent Auto 2.2 % (0-4.4); Hematocrit 45.1 % (42.0-52.0); Hemoglobin 15.1 g/dL (14.0-18.0); Immature Granulocyte Absolute 0.05 K/mm3 (0.00-0.031); Immature Granulocyte Percent A 0.7 % (0-0.5); Immature Platelet Fraction Pct 14.2 % (0.9-11.2); Lymphocytes Absolute Auto 1.51 K/mm3 (0.9-3.2); Lymphocytes Percent Auto 20.5 % (18.3-44.2); Mean Corpuscular HGB Conc 33.5 g/dl (32-36); Mean Corpuscular Hemoglobin 31.1 pg (26-34); Mean Platelet Volume 11.8 fl (7.4-10.4); Monocytes Absolute Auto 0.8 K/mm3 (0.1-0.6); Monocytes Percent Auto 10.2 % (2.6-8.5); Neutrophils Absolute Auto 4.9 K/mm3 (1.3-6.7); Neutrophils Percent Auto 65.9 % (45.5-73.1); Platelet Count Result 68 k/mm3 (150-375); Red Blood Count 4.85 M/mm3 (4.6-6.20); Red Cell Distribution Width 14.2 % (11.5-14.5); White Blood Count 7.4 K/mm3 (4.5-10.0)
[2022-12-24 05:17] LABS: Alanine Aminotransferase 60 U/L (6-50); Albumin Level 4.1 g/dL (3.5-5.1); Alkaline Phosphatase 73 U/L (38-126); Anion Gap 6 mmol/L (8-16); Aspartate Amino Transferase 80 U/L (17-59); Blood Urea Nitrogen 11 mg/dL (9-20); Calcium 9.4 mg/dL (8.4-10.2); Carbon Dioxide 31 mmol/L (22-30); Chloride 101 mmol/L (98-107); Estimated CRCL calculation 164 ml/min; Estimated Glomerular Filt Rate > 60; Glucose 112 mg/dL (65-110); Magnesium 2.3 mg/dL (1.6-2.3); Potassium 3.3 mmol/L (3.4-5.0); Sodium 138 mmol/L (137-145)
[2022-12-24 05:39] LABS: Lipase 4124 U/L (23-300)
[2022-12-24] MEDS: FOLIC ACID 1 MG TABLET PO (09:57)
[2022-12-24] MEDS: THIAMINE HCL 100 MG TABLET PO (09:57)
[2022-12-24] MEDS: amLODIPine BESYLATE 5 MG TABLET PO (09:57)
[2022-12-24] MEDS: METOPROLOL TARTRATE 25 MG TABLET PO ×2 (09:57→21:11)
[2022-12-24] MEDS: NEOMYCIN/POLYMYXIN/DEXAMETH OP SUSP 5 ML BTL 1 DROP EACH EYE ×4 (09:58→21:12)
[2022-12-24] MEDS: PANTOPRAZOLE SODIUM IV 40 MG VIAL IV PUSH (09:58)
--- NOTE | 2022-12-24 14:18 | PM.IMPN ---
Progress Note: A&P Assessment and Plan (1) Epigastric abdominal pain: Code(s): R10.13 - Epigastric pain Status: Acute Assessment and Plan: ADMIT TO IMU TROPONINS X3 MINIMALLY ELEVATED NO EKG CHANGES CT ABDOMEN AND PELVIS REVIEWED Elevated lipase at 603. LFTs normal Repeat level in 4000 Clinically improved Encourage oral diet of fluid recheck and monitor (2) Alcohol intoxication: Code(s): F10.929 - Alcohol use, unspecified with intoxication, unspecified Status: Acute Assessment and Plan: SUPPORTIVE CARE On CIWA protocol Tremulous On chlordiazepoxide and Ativan p.r.n. Still at risk of alcohol withdrawal severe will continue to monitor with CIWA (3) Elevated troponin: Code(s): R79.89 - Other specified abnormal findings of blood chemistry Status: Acute Assessment and Plan: CARDIOLOGY CONSULTED Flat troponin Echocardiogram reviewed (4) GERD (gastroesophageal reflux disease): Code(s): K21.9 - Gastro-esophageal reflux disease without esophagitis Status: Acute Assessment and Plan: PPI (5) Tobacco dependence: Code(s): F17.200 - Nicotine dependence, unspecified, uncomplicated Status: Chronic Assessment and Plan: NICOTINE PATCH NEEDED (6) Fatty liver: Code(s): K76.0 - Fatty (change of) liver, not elsewhere classified Status: Acute Assessment and Plan: FOLLOW-UP IN OUTPATIENT SETTING (7) Alcohol dependence: Qualifiers: Substance use status: in withdrawal Code(s): F10.20 - Alcohol dependence, uncomplicated Status: Acute Assessment and Plan: CIWA NEEDED Plan Mild hyponatremia Hypophosphatemia Subjective Date/time seen: 12/24/22 14:18 Interval history: Patient reports back pain reports less shaky. Denies any shortness of breath. Eating and drinking okay. Abdominal pain in the epigastric area is improved. Remains afebrile. Last drink was in Review of Systems Review of Systems: All systems reviewed & are unremarkable except as noted in HPI and below Exam Narrative: APPEARANCE: Well appearing, no pain, no distress, well-nourished. HEAD: normocephalic, atraumatic. EYES: PERRLA/EOMI, conjunctivae clear. NOSE: Normal no drainage THROAT: Pharynx clear, no exudate. NECK: Supple. No adenopathy, no masses. RESPIRATORY: Airway patent, respirations nonlabored. Clear to auscultation bilaterally, no rales, rhonchi, wheezing. CARDIOVASCULAR: Regular rate and rhythm without murmurs rubs or gallops. ABDOMINAL: Mild epigastric tenderness to palpation soft nondistended MUSCULOSKELETAL: Moves all extremities. Strength/ROM intact, No edema, No calf tenderness. NEURO: Alert. Cranial nerves II through XII intact. SKIN: Warm, dry. Normal Color Objective Data Vital Signs Vital Signs: Vital Signs - 24 hr 12/23/22 15:30 12/23/22 16:01 12/23/22 16:00 Temperature 98.0 F Pulse Rate 88 79 Pulse Rate [Monitor] 86 Respiratory Rate 20 Blood Pressure 152/92 H Pulse Oximetry 97 Oxygen Delivery 12/23/22 18:00 12/23/22 16:00 12/23/22 20:09 Temperature 97.9 F Pulse Rate 89 93 Pulse Rate [Monitor] Respiratory Rate 16 Blood Pressure 126/88 Pulse Oximetry 97 98 Oxygen Delivery Room Air 12/23/22 20:00 12/23/22 20:00 12/23/22 20:43 Temperature Pulse Rate 93 97 Pulse Rate [Monitor] 93 Respiratory Rate 16 Blood Pressure 126/88 Pulse Oximetry 98 Oxygen Delivery Room Air 12/23/22 20:00 12/23/22 22:00 12/23/22 23:58 Temperature 97.4 F L Pulse Rate 92 73 64 Pulse Rate [Monitor] Respiratory Rate 20 Blood Pressure 142/88 H Pulse Oximetry 96 Oxygen Delivery 12/24/22 00:00 12/24/22 00:00 12/24/22 00:00 Temperature Pulse Rate 64 60 Pulse Rate [Monitor] 64 Respiratory Rate 20 Blood Pressure 142/88 H Pulse Oximetry 96 Oxygen Delivery Room Air 12/24/22 01:46 12/24/22 0
[2022-12-24 17:37] LABS: Glucose Point of Care 158 mg/dl (65-105)
[2022-12-24] MEDS: POTASSIUM CHLORIDE 20 MEQ ER TABLET 40 MEQ PO (18:34)
[2022-12-24] MEDS: IBUPROFEN 400 MG TABLET 800 MG PO (21:12)
[2022-12-24] MEDS: PRAVASTATIN SODIUM 20 MG TABLET PO (21:12)
[2022-12-24] MEDS: VENLAFAXINE HCL XR 37.5 MG CAP PO (21:12)
[2022-12-24] MEDS: hydrOXYzine HCL 25 MG TABLET PO (21:13)
[2022-12-24 23:17] LABS: Glucose Point of Care 157 mg/dl (65-105)
[2022-12-25] VITALS (18 sets, daily range): BP systolic 115–161; BP diastolic 78–98; PULSE 68–90; RESP 16–22; TEMP 36.3–36.9; O2SAT 96–99
[2022-12-25 04:37] LABS: Hematocrit 42.4 % (42.0-52.0); Mean Corpuscular Hemoglobin 31.1 pg (26-34); Mean Corpuscular Volume 94.2 fl (80-100); Platelet Count Result 96 k/mm3 (150-375); Red Cell Distribution Width 14.3 % (11.5-14.5); White Blood Count 7.6 K/mm3 (4.5-10.0)
[2022-12-25 04:38] LABS: Basophils Absolute Auto 0.1 K/mm3 (0.0-0.1); Basophils Percent Auto 0.8 % (0.2-1.2); Eosinophils Absolute Auto 0.2 K/mm3 (0-0.3); Eosinophils Percent Auto 2.5 % (0-4.4); Immature Granulocyte Absolute 0.07 K/mm3 (0.00-0.031); Immature Granulocyte Percent A 0.9 % (0-0.5); Immature Platelet Fraction Pct 9.5 % (0.9-11.2); Lymphocytes Absolute Auto 1.74 K/mm3 (0.9-3.2); Lymphocytes Percent Auto 22.8 % (18.3-44.2); Mean Platelet Volume 11.1 fl (7.4-10.4); Monocytes Absolute Auto 1.1 K/mm3 (0.1-0.6); Monocytes Percent Auto 13.7 % (2.6-8.5); Neutrophils Absolute Auto 4.5 K/mm3 (1.3-6.7); Neutrophils Percent Auto 59.3 % (45.5-73.1)
[2022-12-25 05:11] LABS: Alanine Aminotransferase 62 U/L (6-50); Albumin Level 3.8 g/dL (3.5-5.1); Alkaline Phosphatase 66 U/L (38-126); Anion Gap 6 mmol/L (8-16); Aspartate Amino Transferase 54 U/L (17-59); Bilirubin,Total 0.7 mg/dL (0.2-1.3); Blood Urea Nitrogen 11 mg/dL (9-20); Carbon Dioxide 30 mmol/L (22-30); Chloride 103 mmol/L (98-107); Estimated CRCL calculation 200 ml/min; Estimated Glomerular Filt Rate > 60; Glucose 112 mg/dL (65-110); Magnesium 2.2 mg/dL (1.6-2.3); Potassium 3.5 mmol/L (3.4-5.0); Sodium 139 mmol/L (137-145)
[2022-12-25 05:32] LABS: Lipase 3716 U/L (23-300)
[2022-12-25 06:03] LABS: Glucose Point of Care 130 mg/dl (65-105)
[2022-12-25] MEDS: chlordiazePOXIDE (*CRX) 25 MG CAPSULE 50 MG PO ×4 (06:04→23:05)
[2022-12-25] MEDS: THIAMINE HCL 100 MG TABLET PO (09:12)
[2022-12-25] MEDS: METOPROLOL TARTRATE 25 MG TABLET PO ×2 (09:13→20:24)
[2022-12-25] MEDS: amLODIPine BESYLATE 5 MG TABLET PO (09:13)
[2022-12-25] MEDS: FOLIC ACID 1 MG TABLET PO (09:13)
[2022-12-25] MEDS: PANTOPRAZOLE SODIUM IV 40 MG VIAL IV PUSH (09:14)
[2022-12-25] MEDS: NEOMYCIN/POLYMYXIN/DEXAMETH OP SUSP 5 ML BTL 1 DROP EACH EYE ×4 (09:14→20:24)
[2022-12-25] MEDS: IBUPROFEN 400 MG TABLET 800 MG PO (09:24)
--- NOTE | 2022-12-25 11:07 | PM.IMPN ---
Progress Note: A&P Assessment and Plan (1) Epigastric abdominal pain: Code(s): R10.13 - Epigastric pain Status: Acute Assessment and Plan: ADMIT TO IMU TROPONINS X3 MINIMALLY ELEVATED NO EKG CHANGES CT ABDOMEN AND PELVIS REVIEWED Elevated lipase at 603. LFTs normal Repeat level in 4000 NOW TRENDING DOWN Clinically improved Encourage oral diet of fluid recheck and monitor (2) Alcohol intoxication: Code(s): F10.929 - Alcohol use, unspecified with intoxication, unspecified Status: Acute Assessment and Plan: SUPPORTIVE CARE On CIWA protocol Tremulous On chlordiazepoxide and Ativan p.r.n. Still at risk of alcohol withdrawal severe will continue to monitor with CIWA (3) Elevated troponin: Code(s): R79.89 - Other specified abnormal findings of blood chemistry Status: Acute Assessment and Plan: CARDIOLOGY CONSULTED Flat troponin Echocardiogram reviewed (4) GERD (gastroesophageal reflux disease): Code(s): K21.9 - Gastro-esophageal reflux disease without esophagitis Status: Acute Assessment and Plan: PPI (5) Tobacco dependence: Code(s): F17.200 - Nicotine dependence, unspecified, uncomplicated Status: Chronic Assessment and Plan: NICOTINE PATCH NEEDED (6) Fatty liver: Code(s): K76.0 - Fatty (change of) liver, not elsewhere classified Status: Acute Assessment and Plan: FOLLOW-UP IN OUTPATIENT SETTING (7) Alcohol dependence: Qualifiers: Substance use status: in withdrawal Code(s): F10.20 - Alcohol dependence, uncomplicated Status: Acute Assessment and Plan: CIWA NEEDED Plan Mild hyponatremia Hypophosphatemia Subjective Date/time seen: 12/25/22 11:08 Interval history: FEELS MORE CK TODAY. REPORTS ABDOMINAL PAIN. NAUSEA VOMITING. DENIES SHORTNESS OF BREATH OR CHEST PAIN. Review of Systems Review of Systems: All systems reviewed & are unremarkable except as noted in HPI and below Exam Narrative: APPEARANCE: Well appearing, no pain, no distress, well-nourished. HEAD: normocephalic, atraumatic. EYES: PERRLA/EOMI, conjunctivae clear. NOSE: Normal no drainage THROAT: Pharynx clear, no exudate. NECK: Supple. No adenopathy, no masses. RESPIRATORY: Airway patent, respirations nonlabored. Clear to auscultation bilaterally, no rales, rhonchi, wheezing. CARDIOVASCULAR: Regular rate and rhythm without murmurs rubs or gallops. ABDOMINAL: Mild epigastric tenderness to palpation soft nondistended MUSCULOSKELETAL: Moves all extremities. Strength/ROM intact, No edema, No calf tenderness. NEURO: Alert. Cranial nerves II through XII intact. SKIN: Warm, dry. Normal Color Objective Data Vital Signs Vital Signs: Vital Signs - 24 hr 12/24/22 11:11 12/24/22 12:00 12/24/22 14:00 Temperature 97.9 F Pulse Rate 80 87 87 Pulse Rate [Monitor] Respiratory Rate 19 Blood Pressure 144/94 H Pulse Oximetry 98 Oxygen Delivery 12/24/22 12:00 12/24/22 16:00 12/24/22 16:00 Temperature 98.1 F Pulse Rate 81 81 Pulse Rate [Monitor] Respiratory Rate 18 Blood Pressure 143/93 H Pulse Oximetry 97 Oxygen Delivery Room Air 12/24/22 16:00 12/24/22 18:00 12/24/22 19:42 Temperature 96.9 F L Pulse Rate 92 90 Pulse Rate [Monitor] Respiratory Rate 16 Blood Pressure 148/101 H Pulse Oximetry 97 Oxygen Delivery Room Air 12/24/22 21:11 12/24/22 20:00 12/24/22 20:00 Temperature Pulse Rate 83 90 Pulse Rate [Monitor] 90 Respiratory Rate 16 Blood Pressure 148/101 H Pulse Oximetry 97 Oxygen Delivery Room Air 12/24/22 20:00 12/24/22 22:00 12/24/22 22:56 Temperature 97.5 F L Pulse Rate 84 76 72 Pulse Rate [Monitor] Respiratory Rate 16 Blood Pressure 126/89 Pulse Oximetry 97 Oxygen Delivery 12/24/22 23:22 12/24/22 23:22 12/25/22 00:00 Temperature Pulse Rate 72 69 Pulse Rate [M
[2022-12-25] MEDS: HYDROmorphone HCL INJ (*CRX) 1 MG/ML SYR 0.5 MG IV PUSH ×2 (15:00→20:25)
[2022-12-25] MEDS: SODIUM CHLORIDE 0.45% 1,000 ML 100 ML IV CONT (16:16)
[2022-12-25] MEDS: VENLAFAXINE HCL XR 37.5 MG CAP PO (20:24)
[2022-12-25] MEDS: PRAVASTATIN SODIUM 20 MG TABLET PO (20:24)
[2022-12-25] MEDS: hydrOXYzine HCL 25 MG TABLET PO (20:30)
[2022-12-26] VITALS (12 sets, daily range): BP systolic 112–130; BP diastolic 82–90; PULSE 65–81; RESP 12–20; TEMP 36.2–36.9; O2SAT 96–100
[2022-12-26 00:34] LABS: Glucose Point of Care 119 mg/dl (65-105)
[2022-12-26] MEDS: SODIUM CHLORIDE 0.45% 1,000 ML 100 ML IV CONT ×2 (02:07→11:53)
[2022-12-26 04:48] LABS: Basophils Absolute Auto 0.1 K/mm3 (0.0-0.1); Basophils Percent Auto 0.6 % (0.2-1.2); Eosinophils Absolute Auto 0.3 K/mm3 (0-0.3); Eosinophils Percent Auto 2.6 % (0-4.4); Hematocrit 40.6 % (42.0-52.0); Hemoglobin 13.3 g/dL (14.0-18.0); Immature Granulocyte Absolute 0.11 K/mm3 (0.00-0.031); Immature Granulocyte Percent A 1.1 % (0-0.5); Lymphocytes Percent Auto 20.3 % (18.3-44.2); Mean Corpuscular HGB Conc 32.8 g/dl (32-36); Mean Corpuscular Hemoglobin 30.8 pg (26-34); Mean Platelet Volume 9.9 fl (7.4-10.4); Monocytes Absolute Auto 1.4 K/mm3 (0.1-0.6); Monocytes Percent Auto 13.4 % (2.6-8.5); Neutrophils Absolute Auto 6.4 K/mm3 (1.3-6.7); Platelet Count Result 121 k/mm3 (150-375); Red Blood Count 4.32 M/mm3 (4.6-6.20); Red Cell Distribution Width 14.3 % (11.5-14.5); White Blood Count 10.3 K/mm3 (4.5-10.0)
[2022-12-26 05:03] LABS: Alanine Aminotransferase 75 U/L (6-50); Albumin Level 3.6 g/dL (3.5-5.1); Alkaline Phosphatase 63 U/L (38-126); Anion Gap 4 mmol/L (8-16); Aspartate Amino Transferase 62 U/L (17-59); Bilirubin,Total 0.7 mg/dL (0.2-1.3); Blood Urea Nitrogen 8 mg/dL (9-20); Calcium 8.7 mg/dL (8.4-10.2); Carbon Dioxide 29 mmol/L (22-30); Chloride 105 mmol/L (98-107); Estimated CRCL calculation 203 ml/min; Estimated Glomerular Filt Rate > 60; Glucose 113 mg/dL (65-110); Magnesium 2.1 mg/dL (1.6-2.3); Potassium 3.5 mmol/L (3.4-5.0); Sodium 138 mmol/L (137-145)
[2022-12-26] MEDS: chlordiazePOXIDE (*CRX) 25 MG CAPSULE 50 MG PO ×2 (05:16→11:54)
[2022-12-26 06:57] LABS: Glucose Point of Care 110 mg/dl (65-105)
[2022-12-26] MEDS: hydrOXYzine HCL 25 MG TABLET PO ×3 (08:19→20:13)
[2022-12-26] MEDS: amLODIPine BESYLATE 5 MG TABLET PO (08:19)
[2022-12-26] MEDS: METOPROLOL TARTRATE 25 MG TABLET PO ×2 (08:19→20:13)
[2022-12-26] MEDS: THIAMINE HCL 100 MG TABLET PO (08:19)
[2022-12-26] MEDS: FOLIC ACID 1 MG TABLET PO (08:20)
[2022-12-26] MEDS: PANTOPRAZOLE SODIUM IV 40 MG VIAL IV PUSH (08:20)
[2022-12-26] MEDS: NEOMYCIN/POLYMYXIN/DEXAMETH OP SUSP 5 ML BTL 1 DROP EACH EYE ×4 (08:22→20:14)
[2022-12-26 12:13] LABS: Glucose Point of Care 90 mg/dl (65-105)
--- NOTE | 2022-12-26 13:27 | PM.IMPN ---
Progress Note: A&P Assessment and Plan (1) Epigastric abdominal pain: Code(s): R10.13 - Epigastric pain Status: Acute Assessment and Plan: ADMIT TO IMU TROPONINS X3 MINIMALLY ELEVATED NO EKG CHANGES CT ABDOMEN AND PELVIS REVIEWED Elevated lipase at 603. LFTs normal Repeat level in 4000 NOW TRENDING DOWN Clinically improved Encourage oral diet of fluid recheck and monitor Repeat CT with no acute process 12/25/2022 (2) Alcohol intoxication: Code(s): F10.929 - Alcohol use, unspecified with intoxication, unspecified Status: Acute Assessment and Plan: SUPPORTIVE CARE On CIWA protocol Tremulous On chlordiazepoxide and Ativan p.r.n. Still at risk of alcohol withdrawal severe will continue to monitor with CIWA CIWA score better Slowly taper down Librium (3) Elevated troponin: Code(s): R79.89 - Other specified abnormal findings of blood chemistry Status: Acute Assessment and Plan: CARDIOLOGY CONSULTED Flat troponin Echocardiogram reviewed (4) GERD (gastroesophageal reflux disease): Code(s): K21.9 - Gastro-esophageal reflux disease without esophagitis Status: Acute Assessment and Plan: PPI (5) Tobacco dependence: Code(s): F17.200 - Nicotine dependence, unspecified, uncomplicated Status: Chronic Assessment and Plan: NICOTINE PATCH NEEDED (6) Fatty liver: Code(s): K76.0 - Fatty (change of) liver, not elsewhere classified Status: Acute Assessment and Plan: FOLLOW-UP IN OUTPATIENT SETTING (7) Alcohol dependence: Qualifiers: Substance use status: in withdrawal Code(s): F10.20 - Alcohol dependence, uncomplicated Status: Acute Assessment and Plan: CIWA NEEDED Plan Mild hyponatremia Hypophosphatemia Subjective Date/time seen: 12/26/22 13:27 Interval history: Abdomen pain is better. No nausea vomiting feels better Review of Systems Review of Systems: All systems reviewed & are unremarkable except as noted in HPI and below Exam Narrative: APPEARANCE: Well appearing, no pain, no distress, well-nourished. HEAD: normocephalic, atraumatic. EYES: PERRLA/EOMI, conjunctivae clear. NOSE: Normal no drainage THROAT: Pharynx clear, no exudate. NECK: Supple. No adenopathy, no masses. RESPIRATORY: Airway patent, respirations nonlabored. Clear to auscultation bilaterally, no rales, rhonchi, wheezing. CARDIOVASCULAR: Regular rate and rhythm without murmurs rubs or gallops. ABDOMINAL: Mild epigastric tenderness to palpation soft nondistended MUSCULOSKELETAL: Moves all extremities. Strength/ROM intact, No edema, No calf tenderness. NEURO: Alert. Cranial nerves II through XII intact. SKIN: Warm, dry. Normal Color Objective Data Vital Signs Vital Signs: Vital Signs - 24 hr 12/25/22 16:00 12/25/22 14:00 12/25/22 16:00 Temperature 98.4 F Pulse Rate 81 82 76 Pulse Rate [Monitor] Respiratory Rate 16 Blood Pressure 136/98 H Pulse Oximetry 97 Oxygen Delivery 12/25/22 18:00 12/25/22 20:00 12/25/22 20:24 Temperature 98.3 F Pulse Rate 90 75 74 Pulse Rate [Monitor] Respiratory Rate 22 H Blood Pressure 152/95 H Pulse Oximetry 98 Oxygen Delivery 12/25/22 20:00 12/25/22 20:00 12/25/22 20:00 Temperature Pulse Rate 82 82 Pulse Rate [Monitor] 82 Respiratory Rate 22 H Blood Pressure 152/95 H Pulse Oximetry 98 Oxygen Delivery Room Air 12/25/22 21:48 12/25/22 23:34 12/25/22 23:34 Temperature Pulse Rate 78 68 Pulse Rate [Monitor] 68 Respiratory Rate Blood Pressure 152/95 H Pulse Oximetry Oxygen Delivery 12/25/22 23:34 12/26/22 00:00 12/26/22 04:00 Temperature 98.4 F 97.2 F L Pulse Rate 68 69 73 Pulse Rate [Monitor] Respiratory Rate 22 H 18 12 Blood Pressure 127/84 122/83 Pulse Oximetry 98 96 97 Oxygen Delivery Room Air 12/26/22 02:00 12/26/22 04:00 12/26/22 04:00
--- NOTE | 2022-12-26 14:57 | PC.NURSE ---
Orders to transfer to 3rd medical- report given to Tracy RN- pt to room 322 via w/c accompanied by staff -personal belongings with pt
[2022-12-26] MEDS: HYDROmorphone HCL INJ (*CRX) 1 MG/ML SYR 0.5 MG IV PUSH ×3 (15:22→23:41)
--- NOTE | 2022-12-26 15:33 | PC.NURSE ---
This patient, Carmelo Russell Lion Marquez, was received from IMU on 12/26/22 at 1520. Patient/family oriented to unit policies and routines
[2022-12-26] MEDS: chlordiazePOXIDE (*CRX) 25 MG CAPSULE PO ×2 (17:23→23:24)
[2022-12-26] MEDS: VENLAFAXINE HCL XR 37.5 MG CAP PO (20:14)
[2022-12-26] MEDS: PRAVASTATIN SODIUM 20 MG TABLET PO (20:14)
[2022-12-26] MEDS: PHARMACIST COMMUNICATION ORDER 1 EACH XX (23:25)
[2022-12-27] VITALS (9 sets, daily range): BP systolic 110–145; BP diastolic 65–95; PULSE 67–81; RESP 16–20; TEMP 35.7–37; O2SAT 98–99
[2022-12-27] MEDS: chlordiazePOXIDE (*CRX) 25 MG CAPSULE PO ×3 (05:17→17:23)
[2022-12-27 06:51] LABS: Basophils Absolute Auto 0.1 K/mm3 (0.0-0.1); Basophils Percent Auto 0.6 % (0.2-1.2); Eosinophils Absolute Auto 0.2 K/mm3 (0-0.3); Eosinophils Percent Auto 1.9 % (0-4.4); Hematocrit 41.2 % (42.0-52.0); Hemoglobin 13.3 g/dL (14.0-18.0); Immature Granulocyte Absolute 0.11 K/mm3 (0.00-0.031); Immature Granulocyte Percent A 1.2 % (0-0.5); Lymphocytes Absolute Auto 1.91 K/mm3 (0.9-3.2); Lymphocytes Percent Auto 21.5 % (18.3-44.2); Mean Corpuscular HGB Conc 32.3 g/dl (32-36); Mean Corpuscular Hemoglobin 30.9 pg (26-34); Mean Corpuscular Volume 95.8 fl (80-100); Mean Platelet Volume 9.4 fl (7.4-10.4); Monocytes Absolute Auto 1.7 K/mm3 (0.1-0.6); Monocytes Percent Auto 18.9 % (2.6-8.5); Neutrophils Percent Auto 55.9 % (45.5-73.1); Platelet Count Result 158 k/mm3 (150-375); Red Cell Distribution Width 14.6 % (11.5-14.5); White Blood Count 8.9 K/mm3 (4.5-10.0)
[2022-12-27] MEDS: FOLIC ACID 1 MG TABLET PO (07:59)
[2022-12-27] MEDS: METOPROLOL TARTRATE 25 MG TABLET PO ×2 (07:59→21:03)
[2022-12-27] MEDS: amLODIPine BESYLATE 5 MG TABLET PO (08:01)
[2022-12-27] MEDS: PANTOPRAZOLE SODIUM IV 40 MG VIAL IV PUSH (08:01)
[2022-12-27] MEDS: THIAMINE HCL 100 MG TABLET PO (08:01)
[2022-12-27] MEDS: NEOMYCIN/POLYMYXIN/DEXAMETH OP SUSP 5 ML BTL 1 DROP EACH EYE ×4 (08:02→21:06)
[2022-12-27 08:10] LABS: Alanine Aminotransferase 77 U/L (6-50); Albumin Level 3.9 g/dL (3.5-5.1); Alkaline Phosphatase 69 U/L (38-126); Anion Gap 5 mmol/L (8-16); Aspartate Amino Transferase 52 U/L (17-59); Bilirubin,Total 0.7 mg/dL (0.2-1.3); Blood Urea Nitrogen 5 mg/dL (9-20); Calcium 9.2 mg/dL (8.4-10.2); Carbon Dioxide 30 mmol/L (22-30); Chloride 105 mmol/L (98-107); Estimated CRCL calculation 168 ml/min; Estimated Glomerular Filt Rate > 60; Glucose 110 mg/dL (65-110); Lipase 1916 U/L (23-300); Magnesium 2.2 mg/dL (1.6-2.3); Potassium 3.7 mmol/L (3.4-5.0); Sodium 140 mmol/L (137-145)
[2022-12-27] MEDS: HYDROmorphone HCL INJ (*CRX) 1 MG/ML SYR 0.5 MG IV PUSH ×3 (09:50→21:32)
--- NOTE | 2022-12-27 15:10 | PM.IMPN ---
Progress Note: A&P Assessment and Plan (1) Epigastric abdominal pain: Code(s): R10.13 - Epigastric pain Status: Acute Assessment and Plan: ADMIT TO IMU TROPONINS X3 MINIMALLY ELEVATED NO EKG CHANGES CT ABDOMEN AND PELVIS REVIEWED Elevated lipase at 603. LFTs normal Repeat level in 4000 NOW TRENDING DOWN Clinically improved Encourage oral diet of fluid recheck and monitor Repeat CT with no acute process 12/25/2022 Lipase continues to improve Will advance diet to low-fat (2) Alcohol intoxication: Code(s): F10.929 - Alcohol use, unspecified with intoxication, unspecified Status: Acute Assessment and Plan: SUPPORTIVE CARE On CIWA protocol Tremulous On chlordiazepoxide and Ativan p.r.n. Still at risk of alcohol withdrawal severe will continue to monitor with CIWA CIWA score better Slowly taper down Librium (3) Elevated troponin: Code(s): R79.89 - Other specified abnormal findings of blood chemistry Status: Acute Assessment and Plan: CARDIOLOGY CONSULTED Flat troponin Echocardiogram reviewed (4) GERD (gastroesophageal reflux disease): Code(s): K21.9 - Gastro-esophageal reflux disease without esophagitis Status: Acute Assessment and Plan: PPI (5) Tobacco dependence: Code(s): F17.200 - Nicotine dependence, unspecified, uncomplicated Status: Chronic Assessment and Plan: NICOTINE PATCH NEEDED (6) Fatty liver: Code(s): K76.0 - Fatty (change of) liver, not elsewhere classified Status: Acute Assessment and Plan: FOLLOW-UP IN OUTPATIENT SETTING (7) Alcohol dependence: Qualifiers: Substance use status: in withdrawal Code(s): F10.20 - Alcohol dependence, uncomplicated Status: Acute Assessment and Plan: CIWA NEEDED On Librium Will taper down Librium q.8 hours today Need to go for alcohol rehabilitation Plan Mild hyponatremia Hypophosphatemia Subjective Date/time seen: 12/27/22 15:10 Interval history: feeling okay. Abdominal pain is still persistent but better. On full liquid diet Review of Systems Review of Systems: All systems reviewed & are unremarkable except as noted in HPI and below Exam Narrative: APPEARANCE: Well appearing, no pain, no distress, well-nourished. HEAD: normocephalic, atraumatic. EYES: PERRLA/EOMI, conjunctivae clear. NOSE: Normal no drainage THROAT: Pharynx clear, no exudate. NECK: Supple. No adenopathy, no masses. RESPIRATORY: Airway patent, respirations nonlabored. Clear to auscultation bilaterally, no rales, rhonchi, wheezing. CARDIOVASCULAR: Regular rate and rhythm without murmurs rubs or gallops. ABDOMINAL: Mild epigastric tenderness to palpation soft nondistended MUSCULOSKELETAL: Moves all extremities. Strength/ROM intact, No edema, No calf tenderness. NEURO: Alert. Cranial nerves II through XII intact. SKIN: Warm, dry. Normal Color Objective Data Vital Signs Vital Signs: Vital Signs - 24 hr 12/26/22 16:00 12/26/22 16:00 12/26/22 20:13 Temperature 97.8 F Pulse Rate 71 72 Pulse Rate [Monitor] 71 Respiratory Rate 18 Blood Pressure 130/84 130/84 Pulse Oximetry 100 Oxygen Delivery 12/26/22 20:00 12/26/22 21:12 12/27/22 00:00 Temperature 97.1 F L Pulse Rate 73 Pulse Rate [Monitor] 76 76 Respiratory Rate 20 Blood Pressure 112/82 112/82 Pulse Oximetry 99 Oxygen Delivery 12/27/22 00:00 12/27/22 04:00 12/27/22 06:04 Temperature 96.3 F L Pulse Rate 73 69 Pulse Rate [Monitor] 76 Respiratory Rate 20 16 Blood Pressure 112/82 123/82 Pulse Oximetry 99 98 Oxygen Delivery Room Air 12/27/22 07:54 12/27/22 07:59 Temperature 98.0 F Pulse Rate 73 81 Pulse Rate [Monitor] Respiratory Rate 20 Blood Pressure 110/65 Pulse Oximetry 98 Oxygen Delivery Intake/Output Intake/Output: Intake & Output 12/24/22 12/25/22 12/26/22 12/27/22 23:59 23:59 2
[2022-12-27] MEDS: IBUPROFEN 400 MG TABLET 800 MG PO (18:21)
[2022-12-27] MEDS: VENLAFAXINE HCL XR 37.5 MG CAP PO (21:03)
[2022-12-27] MEDS: PRAVASTATIN SODIUM 20 MG TABLET PO (21:03)
[2022-12-28] VITALS: PULSE 60
[2022-12-28] MEDS: chlordiazePOXIDE (*CRX) 25 MG CAPSULE PO ×2 (02:24→09:10)
[2022-12-28 06:16] VITALS: BP 136/97; PULSE 62; RESP 16; TEMP 35.8; O2SAT 95
[2022-12-28 08:00] VITALS: PULSE 66; O2SAT 95
[2022-12-28 09:10] VITALS: PULSE 66
[2022-12-28] MEDS: amLODIPine BESYLATE 5 MG TABLET PO (09:10)
[2022-12-28] MEDS: PANTOPRAZOLE SODIUM IV 40 MG VIAL IV PUSH (09:10)
[2022-12-28] MEDS: METOPROLOL TARTRATE 25 MG TABLET PO (09:10)
[2022-12-28] MEDS: THIAMINE HCL 100 MG TABLET PO (09:10)
[2022-12-28] MEDS: hydrOXYzine HCL 25 MG TABLET PO (09:10)
[2022-12-28] MEDS: NEOMYCIN/POLYMYXIN/DEXAMETH OP SUSP 5 ML BTL 1 DROP EACH EYE ×2 (09:10→12:54)
[2022-12-28] MEDS: FOLIC ACID 1 MG TABLET PO (09:10)
[2022-12-28] MEDS: HYDROmorphone HCL INJ (*CRX) 1 MG/ML SYR 0.5 MG IV PUSH (10:13)
[2022-12-28 12:00] VITALS: PULSE 66
--- NOTE | 2022-12-28 12:36 | PC.NURSE ---
On 12/28/22, the student, [Jensen Mansfield ], provided care and completed [facility] documentation on this patient. I have reviewed the student's documentation and agree with the findings.
[2022-12-28] MEDS: IBUPROFEN 400 MG TABLET 800 MG PO (12:57)
--- NOTE | 2022-12-28 13:58 | PM.DS ---
DS: Admitting Diagnosis Discharge Date 12/28/22 Admitting Diagnosis pancreatitis DS: Discharge Diagnosis Discharge Diagnosis (1) Alcohol dependence: Qualifiers: Substance use status: in withdrawal Code(s): F10.20 - Alcohol dependence, uncomplicated Status: Inactive (2) Epigastric abdominal pain: Code(s): R10.13 - Epigastric pain Status: Acute (3) Pancreatitis: Onset Date: ~05/22/22 Qualifiers: Acute pancreatitis complication: no infection or necrosis Chronicity: acute Pancreatitis type: unspecified pancreatitis type Qualified Code(s): K85.90 - Acute pancreatitis without necrosis or infection, unspecified Code(s): K85.90 - Acute pancreatitis without necrosis or infection, unspecified Status: Acute (4) Tobacco abuse: Code(s): Z72.0 - Tobacco use Status: Acute DS: Summary Hospital Course Hospital Course: 47M w/ PMH alcohol and tobacco abuse, HLD, HTN, pancreatitis presented with epigastric pain. He was treated for pancreatitis with bowel rest and IV resuscitation. On 12/28 his pain is improved, pt is eating solid foods and tolerating, and have solid BM's. He is discharged home in stable condition. He was counseled extensively on tobacco and alcohol abuse. He declines further resources here but will follow up with his counselor. Ct scan abdomen did not reveal complications of pancreatitis. slightly elevated troponin due to demand, cardiology was consulted. More than 30 minutes spent on discharge planning and documentation. Time Spent with Patient Time attestation: Total time spent providing and/or coordinating discharge services: Exam Const: General: cooperative and no acute distress Resp: Effort & Inspection: normal respiratory effort Auscultation: clear to auscultation bilaterally Cardio: Rate: regular rate Rhythm: regular rhythm Heart sounds: S1 normal heart sound present and S2 normal heart sound present GI: GI Palp: No abdominal tenderness Auscultation: normal bowel sounds Discharge Plan Discharge Attending physician on discharge: Leida Badillo Consulting providers: Sae Moseley Discharging Clinician: Leida Badillo Patient Disposition: Home, Self-Care Activity: may shower Diet: heart healthy Patient Instructions: How to Stop Smoking (GEN) Stand Alone Forms: General Discharge Information Follow-up/Referrals: Lula,MAJOR Burgess [Primary Care Provider] - 1 Week Discharge Medications: Continued pravastatin 20 mg tablet 20 mg PO HS amlodipine [Norvasc] 5 mg Tablet 5 mg PO QAM Qty: 30 1RF metoprolol tartrate 25 mg Tablet 25 mg PO Q12HR Qty: 60 1RF thiamine HCl (vitamin B1) 100 mg tablet 100 mg PO DAILY folic acid 1 mg tablet 1 mg PO DAILY escitalopram oxalate 20 mg tablet 20 mg PO DAILY hydroxyzine HCl 25 mg tablet 25 mg PO TID PRN (Reason: Anxiety) venlafaxine 37.5 mg capsule,extended release 24hr 37.5 mg PO HS Date of admission: 12/23/22 16:09 Primary Care Provider: LulaYecenia Admitting Provider: Neela Tubbs Attending physician on admission: Neela Tubbs Condition: Improved
[2022-12-28 14:00] VITALS: BP 112/78; PULSE 67; RESP 18; TEMP 36.1; O2SAT 98
[2022-12-28] MEDS: HYDROcodone/acetaminophen (*CRX) 10-325 MG TABLET 1 TAB PO (14:47)
== END 2022-12-28 15:11 | disposition home or self-care (01) | DRG 282 ==
LOC: ANHED 12:24 → ANHIMU 16:09 → ANH3MEDSUR 12-26 14:53
PROVIDERS: Internal Medicine; Admitting Provider Family Medicine; Emergency Provider Emergency Medicine; PCP Physician Assistant; Visit Provider General Practice
DX: K85.20 Alcohol induced acute pancreatitis without necrosis or infection (principal); I21.A1 Myocardial infarction type 2; D69.6 Thrombocytopenia, unspecified; E87.1 Hypo-osmolality and hyponatremia; E78.5 Hyperlipidemia, unspecified; I10 Essential (primary) hypertension; K21.9 Gastro-esophageal reflux disease without esophagitis; K76.0 Fatty (change of) liver, not elsewhere classified; M21.371 Foot drop, right foot; R79.89 Other specified abnormal findings of blood chemistry; F17.200 Nicotine dependence, unspecified, uncomplicated; F10.229 Alcohol dependence with intoxication, unspecified; F41.9 Anxiety disorder, unspecified; I25.2 Old myocardial infarction; Z86.73 Personal history of transient ischemic attack (TIA), and cerebral infarction without residual deficits
CPT/HCPCS: 36415; 71045; 71275; 74176; 74177; 80048; 80053; 80307; 81001; 82948; 83690; 83735; 84100; 84132; 84484; 85025; 85055; 85610; 85730; 93005; 93306; 96361; 96374; 96375; 96376; 97161; 97165; 99285; A9270; C9113; G0378; G0379; J1170; J2060; J7030; J7050; Q9967

== ENCOUNTER 2023-01-25 14:33 | Emergency (ER) | payer OTHER, SELFPAY ==
--- NOTE | ~2023-01-25 | XR_ITS ---
EXAMINATION: XR chest 2V 01/25/2023 15:19 INDICATION: Midsternal chest pain PROCEDURE: 2 view chest COMPARISON: Comparison to multiple prior studies sequentially, with oldest reviewed study dated 09/01. FINDINGS: The lungs are clear. The cardiomediastinal silhouette is within normal limits. There are no pleural effusions. There is no pneumothorax suspected. IMPRESSION: 1: NO ACUTE CARDIOPULMONARY DISEASE. Reviewed, dictated and finalized at location [facility]. RITY MOTHER
[2023-01-25 14:49] VITALS: BP 133/77; PULSE 118; RESP 18; TEMP 36.9; O2SAT 96
--- NOTE | 2023-01-25 14:58 | ECG_ITS ---
Measurements Intervals [place] Rate: 108 P: 55 CT: 160 QRS: -56 QRSD: 90 T: 44 QT: 341 QTc: 458 Interpretive Statements SINUS TACHYCARDIA LEFT ANTERIOR FASCICULAR BLOCK BASELINE ARTIFACT- III, AVL, AVF, V3 ABNORMAL ECG COMPARED TO ECG 12/21/2022 13:44:33 NO SIGNIFICANT CHANGES Electronically Signed On 01-25-2023 20:06:36 MANAGER BRANCH by Tyler Roger D.O.
[2023-01-25] MEDS: LORazepam INJ (*CRX) 2 MG/ML VIAL IV PUSH (15:19)
--- NOTE | 2023-01-25 15:30 | ED.GENADULT ---
HPI - General Adult General Chief complaint: Chest Pain Stated complaint: fall out of bed, cp with palpation Time Seen by Provider: 01/25/23 15:07 History of Present Illness HPI narrative: 47-year-old male history of CVA and SD and alcohol dependence presents Emergency department for evaluation of chest pain. Patient states that he does continue to drink but has been trying to decrease his alcohol consumption. Patient states he had a fall from bed this morning initially called EMS for a lift assist since his brother and mother were not able to come off the floor. Patient noticed he was having chest pain at that time but did not want to be seen or transported by EMS. Patient states he went back to sleep and when he woke up he found that the chest pain has been so intense that it caused him to urinate himself. Related Data Home Medications Medication Instructions Recorded Confirmed pravastatin 20 mg tablet 20 mg PO HS 06/28/21 12/21/22 hydroxyzine HCl 25 mg tablet 25 mg PO TID PRN Anxiety 07/01/21 12/21/22 venlafaxine 37.5 mg 37.5 mg PO HS 07/01/21 12/21/22 capsule,extended release 24 hr folic acid 1 mg tablet 1 mg PO DAILY 05/21/22 12/21/22 thiamine HCl (vitamin B1) 100 mg 100 mg PO DAILY 05/21/22 12/21/22 tablet escitalopram oxalate 20 mg tablet 20 mg PO DAILY 12/24/22 12/24/22 Allergies Allergy/AdvReac Type Severity Reaction Status Date / Time aspirin Allergy Severe throat Verified 01/25/23 15:20 swelling latex AdvReac Mild Rash Verified 01/25/23 15:20 Review of Systems Review of Systems: All systems reviewed & are unremarkable except as noted in HPI and below [facility] Past Medical History Medical History (Updated 01/26/23 @ 00:00 by Background Daemon) Alcohol dependence Anxiety Helicobacter pylori (H. pylori) Hyperlipidemia Hypertension Lipoma of back Pancreatitis (~05/22/22) Right foot drop Thrombocytopenia Tobacco abuse Vocal cord polyps Surgical History Surgical History History of vocal cord polypectomy Status post excision of lipoma Family History Family History Father Diabetes mellitus Heart disease FH: CABG (coronary artery bypass surgery) Cancer Hypertension Mother Heart disease Chronic obstructive pulmonary disease Hypertension Congestive heart failure Sibling Hypertension Social History Social History Social History: The patient currently lives with his mother. He works for [employer]. He is . Surrogate medical decision maker: Cheyenne Seymour, mother. Code status: Full code. Smoking packs per day: 1 Smoking cigarettes per day: 20.0 Years smoked: 35 Smoking pack-years: 35.00 Smoking status: Heavy tobacco smoker Tobacco type: cigarettes Second hand tobacco smoke exposure: Yes Smoking end date: 03/06/11 Alcohol intake: current Drinks per week: 20 Alcohol use details: Drinks a pt of whiskey or a 6 pack most days of the week, sometimes won't drink for a couple months and sometimes he will drink more than that. Substance use: current Substance use type: marijuana Other substance usage details: Rarely Last use: 05/03/22 Lack of Transportation: No Lack of Food: Never True Current Housing: I Have Housing Concerned About Future Housing: No Difficulty Paying Gas/Electric Bills: No Difficulty Paying for Meds: No Currently Unemployed: No Education: Grade School Difficulty w/ Childcare or Family Care: No Living arrangements: with family Spiritual care concerns: No Exam Narrative: APPEARANCE: Well appearing, no pain, no distress, well-nourished. HEAD: normocephalic, atraumatic. EYES: PERRLA/EOMI, conjunctivae clear. NOSE: Normal no drainage EARS:TMS clear with good light reflex. THROAT: Pharynx clear, no exudate. NECK: Supple. No
[2023-01-25] MEDS: MORPHINE SULFATE (*CRX) 4 MG/ML INJ IV PUSH (15:37)
[2023-01-25 15:56] LABS: Basophils Percent Auto 0.2 % (0.2-1.2); Eosinophils Absolute Auto 0.1 K/mm3 (0-0.3); Eosinophils Percent Auto 0.3 % (0-4.4); Hematocrit 39.5 % (42.0-52.0); Hemoglobin 13.6 g/dL (14.0-18.0); Immature Granulocyte Absolute 0.06 K/mm3 (0.00-0.031); Immature Granulocyte Percent A 0.4 % (0-0.5); Immature Platelet Fraction Pct 7.7 % (0.9-11.2); Lymphocytes Percent Auto 4.5 % (18.3-44.2); Mean Corpuscular HGB Conc 34.4 g/dl (32-36); Mean Corpuscular Hemoglobin 31.1 pg (26-34); Mean Corpuscular Volume 90.2 fl (80-100); Mean Platelet Volume 10.1 fl (7.4-10.4); Monocytes Absolute Auto 1.1 K/mm3 (0.1-0.6); Monocytes Percent Auto 7.1 % (2.6-8.5); Neutrophils Absolute Auto 13.5 K/mm3 (1.3-6.7); Neutrophils Percent Auto 87.5 % (45.5-73.1); Platelet Count Result 63 k/mm3 (150-375); Red Blood Count 4.38 M/mm3 (4.6-6.20); Red Cell Distribution Width 14.3 % (11.5-14.5); White Blood Count 15.5 K/mm3 (4.5-10.0)
[2023-01-25 16:04] LABS: Alanine Aminotransferase 68 U/L (6-50); Albumin Level 4.9 g/dL (3.5-5.1); Alkaline Phosphatase 93 U/L (38-126); Anion Gap 25 mmol/L (8-16); Aspartate Amino Transferase 112 U/L (17-59); Bilirubin,Total 1.5 mg/dL (0.2-1.3); Blood Urea Nitrogen 18 mg/dL (9-20); Calcium 8.1 mg/dL (8.4-10.2); Carbon Dioxide 18 mmol/L (22-30); Chloride 86 mmol/L (98-107); Estimated Glomerular Filt Rate > 60; Glucose 123 mg/dL (65-110); Lipase 282 U/L (23-300); Potassium 4.2 mmol/L (3.4-5.0); Sodium 129 mmol/L (137-145)
[2023-01-25 16:06] VITALS: BP 143/82; PULSE 111; RESP 21; O2SAT 95
[2023-01-25 16:12] LABS: Prothrombin Time 13.6 Seconds (11.1-14.7)
[2023-01-25 16:13] LABS: Partial Thromboplastin Time 25.4 SECONDS (22.3-36.8)
[2023-01-25 16:16] LABS: Troponin I < 0.012 ng/mL (0.000-0.034)
[2023-01-25 17:39] VITALS: BP 129/92; PULSE 124; RESP 16; O2SAT 97
[2023-01-25 17:41] LABS: Influenza A QL RT-PCR Negative (Negative); Influenza B QL RT-PCR Negative (Negative); RSV RNA, RT-PCR Negative (Negative); SARS-CoV-2 RNA PCR Negative (Negative)
[2023-01-25 18:28] LABS: Troponin I < 0.012 ng/mL (0.000-0.034)
[2023-01-25] MEDS: SODIUM CHLORIDE 0.9% IV 1,000 ML 999 ML IV CONT (18:31)
[2023-01-25 19:15] VITALS: BP 143/82; PULSE 118; RESP 18; O2SAT 96
== END 2023-01-25 19:18 | disposition home or self-care (01) ==
PROVIDERS: Emergency Medicine; Emergency Provider Emergency Medicine; PCP Physician Assistant
DX: R07.9 Chest pain, unspecified (principal); E86.0 Dehydration; Z20.822 Contact with and (suspected) exposure to COVID-19; I25.2 Old myocardial infarction; E78.5 Hyperlipidemia, unspecified; I10 Essential (primary) hypertension; D69.6 Thrombocytopenia, unspecified; F41.9 Anxiety disorder, unspecified; Z87.891 Personal history of nicotine dependence; R00.0 Tachycardia, unspecified; I44.4 Left anterior fascicular block
CPT/HCPCS: 36415; 71046; 80053; 83690; 84484; 85025; 85055; 85610; 85730; 87637; 93005; 96361; 96374; 96375; 99284; J2060; J2270; J7030

== ENCOUNTER 2023-02-02 11:30 | Outpatient (CLI) | payer OTHER, SELFPAY ==
[2023-02-02 13:02] LABS: Basophils Percent Auto 0.5 % (0.2-1.2); Eosinophils Absolute Auto 0.1 K/mm3 (0-0.3); Eosinophils Percent Auto 1.6 % (0-4.4); Hematocrit 42.2 % (42.0-52.0); Hemoglobin 13.8 g/dL (14.0-18.0); Hemoglobin A1C 5.3 % (<5.7); Immature Granulocyte Absolute 0.05 K/mm3 (0.00-0.031); Immature Granulocyte Percent A 0.6 % (0-0.5); Lymphocytes Absolute Auto 2.31 K/mm3 (0.9-3.2); Lymphocytes Percent Auto 28.5 % (18.3-44.2); Mean Corpuscular HGB Conc 32.7 g/dl (32-36); Mean Corpuscular Hemoglobin 30.9 pg (26-34); Mean Corpuscular Volume 94.6 fl (80-100); Mean Platelet Volume 9.4 fl (7.4-10.4); Monocytes Absolute Auto 1.8 K/mm3 (0.1-0.6); Monocytes Percent Auto 21.9 % (2.6-8.5); Neutrophils Absolute Auto 3.8 K/mm3 (1.3-6.7); Neutrophils Percent Auto 46.9 % (45.5-73.1); Platelet Count Result 244 k/mm3 (150-375); Red Blood Count 4.46 M/mm3 (4.6-6.20); Red Cell Distribution Width 14.8 % (11.5-14.5); White Blood Count 8.1 K/mm3 (4.5-10.0)
[2023-02-02 13:09] LABS: Alanine Aminotransferase 178 U/L (6-50); Albumin Level 4.6 g/dL (3.5-5.1); Alkaline Phosphatase 78 U/L (38-126); Amylase 112 U/L (30-110); Anion Gap 10 mmol/L (8-16); Aspartate Amino Transferase 91 U/L (17-59); Bilirubin,Total 0.8 mg/dL (0.2-1.3); Blood Urea Nitrogen 9 mg/dL (9-20); Calcium 9.6 mg/dL (8.4-10.2); Carbon Dioxide 27 mmol/L (22-30); Chloride 101 mmol/L (98-107); Cholesterol 167 mg/dL (0-200); Estimated Glomerular Filt Rate > 60; Glucose 102 mg/dL (65-110); HDL Direct 49 mg/dL; Lipase 447 U/L (23-300); Potassium 4.2 mmol/L (3.4-5.0); Sodium 138 mmol/L (137-145); Triglycerides 118 mg/dL (<150)
[2023-02-02 13:23] LABS: LDL Cholesterol Direct 82 mg/dL
[2023-02-02 13:36] LABS: Prostate Specific Antigen 0.5 ng/mL (< OR = 4.0)
[2023-02-02 13:45] LABS: HIV 1/2 Ab P24 Ag Result Negative (Negative)
[2023-02-02 14:02] LABS: Hepatitis C Virus Antibody Negative (Negative)
== END 2023-02-02 11:31 | disposition home or self-care (01) ==
LOC: ANHLAB 11:32
PROVIDERS: PCP Physician Assistant; Visit Provider Physician Assistant
DX: Z00.00 Encounter for general adult medical examination without abnormal findings (principal); R10.9 Unspecified abdominal pain
CPT/HCPCS: 36415; 80053; 80061; 82150; 83036; 83690; 84153; 85025; 86703; 86803; 87086; G0432

== ENCOUNTER 2023-02-03 06:33 | Outpatient (CLI) | payer OTHER, SELFPAY ==
--- NOTE | ~2023-02-03 | US_ITS ---
Abdominal Sonogram: Real-time sonographic imaging of the abdomen was performed. Clinical History: Abdominal pain Findings: The liver appears echogenic, with no evidence of mass lesion or bile duct dilatation. Main portal vein demonstrates normal direction of flow. The spleen is normal in size without evidence of focal lesion. The gallbladder is partially distended, with no evidence of gallstone. Minimal gallbla dder wall thickening may be related to partially distended state. The common bile duct measures 5 mm. The visualized pancreas, aorta, and IVC are unremarkable. The right kidney measures 10.7 cm in noé gth and the left kidney measures 10.8 cm. There is no hydronephrosis or renal calculus. Impression: Mild gallbladder wall thickening may be due to underdistention. No definite gallstone seen. Diffuse fatty infiltration of liver. Reviewed, dictated and finalized at [facility]. IFIED BENCH JEWELER TECHNICIAN Impression: Mild gallbladder wall thickening may be due to underdistention. No definite gal lstone seen. Diffuse fatty infiltration of liver.
== END 2023-02-03 06:34 | disposition home or self-care (01) ==
PROVIDERS: PCP Physician Assistant; Visit Provider Physician Assistant
DX: R10.9 Unspecified abdominal pain (principal); K76.0 Fatty (change of) liver, not elsewhere classified
CPT/HCPCS: 76700

== ENCOUNTER 2023-11-10 01:42 | Emergency (ER) | payer OTHER, SELFPAY ==
--- NOTE | ~2023-11-10 | XR_ITS ---
Clinical Indication: Chest pain PA and lateral views of the chest: Comparison: 01/25/2023 Findings: The lungs are clear, without evidence of focal consolidation or pleural effusion. Cardiome diastinal silhouette is within normal limits. Bones and soft tissues are unremarkable. Impression: Normal chest. Reviewed, dictated and finalized at location . Impression: Normal chest.
[2023-11-10 01:43] VITALS: BP 127/89; PULSE 82; RESP 22; TEMP 37.1; O2SAT 99
--- NOTE | 2023-11-10 01:46 | ECG_ITS ---
Test Date: 2023-11-10 01:54:40 Measurements Intervals [place] Rate: 75 P: 28 ID: [id number] QRS: -37 QRSD: 90 T: 42 QT: 382 QTc: 428 Interpretive Statements SINUS RHYTHM LEFT AXIS DEVIATION DELAYED PRECORDIAL R/S TRANSITION BASELINE ARTIFACT- I, II, III, AVR, AVL, AVF, V1-V6 BORDERLINE ECG No previous ECG available for comparison Electronically Signed On 11-10-2023 06:53:37 CDT by Tyler Roger D.O.
--- NOTE | 2023-11-10 01:52 | ED.ALCOHOL ---
HPI - Alcohol General Chief Complaint: Alcohol Stated Complaint: ANXIETY, LEFT CHEST, BACK, AND NECK PAIN History of Present Illness HPI narrative: 48-year-old male presenting to the emergency department for evaluation for left shoulder pain. Patient states on he had a fall and fractured his nose. Patient was seen at [facility] for this. Patient states last night he began developing some left shoulder tightness that woke him from sleep. Patient states he has also been attempting to decrease his alcohol consumption. Patient had been drinking approximately a pt of alcohol a day but since Monday has decreased alcohol consumption. Patient denies any prior history of alcohol withdrawal seizures. Related Data Home Medications Medication Instructions Recorded Confirmed pravastatin 20 mg tablet 20 mg PO HS 06/28/21 12/21/22 hydroxyzine HCl 25 mg tablet 25 mg PO TID PRN Anxiety 07/01/21 12/21/22 venlafaxine 37.5 mg 37.5 mg PO HS 07/01/21 12/21/22 capsule,extended release 24 hr folic acid 1 mg tablet 1 mg PO DAILY 05/21/22 12/21/22 thiamine HCl (vitamin B1) 100 mg 100 mg PO DAILY 05/21/22 12/21/22 tablet escitalopram oxalate 20 mg tablet 20 mg PO DAILY 12/24/22 12/24/22 Allergies Allergy/AdvReac Type Severity Reaction Status Date / Time aspirin Allergy Severe throat Verified 01/25/23 15:20 swelling latex AdvReac Mild Rash Verified 01/25/23 15:20 Review of Systems Review of Systems: All systems reviewed & are unremarkable except as noted in HPI and below PMFSH Past Medical History Medical History (Updated 11/11/23 @ 00:01 by Background Daemon) Alcohol dependence Anxiety Helicobacter pylori (H. pylori) Hyperlipidemia Hypertension Lipoma of back Pancreatitis (~05/22/22) Right foot drop Thrombocytopenia Tobacco abuse Vocal cord polyps Surgical History Surgical History History of vocal cord polypectomy Status post excision of lipoma Family History Family History Father Diabetes mellitus Heart disease FH: CABG (coronary artery bypass surgery) Cancer Hypertension Mother Heart disease Chronic obstructive pulmonary disease Hypertension Congestive heart failure Sibling Hypertension Social History Social History Social History: The patient currently lives with his mother. He works for [employer]. He is . Surrogate medical decision maker: Cheyenne Seymour, mother. Code status: Full code. Smoking packs per day: 1 Smoking cigarettes per day: 20.0 Years smoked: 35 Smoking pack-years: 35.00 Smoking status: Heavy tobacco smoker Tobacco type: cigarettes Second hand tobacco smoke exposure: Yes Smoking end date: 03/06/11 Alcohol intake: current Drinks per week: 20 Alcohol use details: Drinks a pt of whiskey or a 6 pack most days of the week, sometimes won't drink for a couple months and sometimes he will drink more than that. Substance use: current Substance use type: marijuana Other substance usage details: Rarely Last use: 05/03/22 Lack of Transportation: No Lack of Food: Never True Current Housing: I Have Housing Concerned About Future Housing: No Difficulty Paying Gas/Electric Bills: No Difficulty Paying for Meds: No Currently Unemployed: No Education: Grade School Difficulty w/ Childcare or Family Care: No Living arrangements: with family Spiritual care concerns: No Exam Narrative: APPEARANCE: Well appearing, no pain, no distress, well-nourished. HEAD: normocephalic, atraumatic. EYES: PERRLA/EOMI, conjunctivae clear. NOSE: Normal no drainage EARS:TMS clear with good light reflex. THROAT: Pharynx clear, no exudate. NECK: Supple. No adenopathy, no masses. RESPIRATORY: Airway patent, respirations nonlabored. Clear to auscultation bilat
[2023-11-10 02:06] LABS: Basophils Percent Auto 0.4 % (0.2-1.2); Eosinophils Absolute Auto 0.2 K/mm3 (0-0.3); Eosinophils Percent Auto 1.7 % (0-4.4); Hematocrit 41.7 % (42.0-52.0); Hemoglobin 14.5 g/dL (14.0-18.0); Immature Granulocyte Absolute 0.03 K/mm3 (0.00-0.031); Immature Granulocyte Percent A 0.3 % (0-0.5); Immature Platelet Fraction Pct 9.4 % (0.9-11.2); Lymphocytes Absolute Auto 1.75 K/mm3 (0.9-3.2); Lymphocytes Percent Auto 15.3 % (18.3-44.2); Mean Corpuscular HGB Conc 34.8 g/dl (32-36); Mean Corpuscular Hemoglobin 32.9 pg (26-34); Mean Corpuscular Volume 94.6 fl (80-100); Mean Platelet Volume 10.7 fl (7.4-10.4); Monocytes Absolute Auto 1.2 K/mm3 (0.1-0.6); Monocytes Percent Auto 10.1 % (2.6-8.5); Neutrophils Absolute Auto 8.3 K/mm3 (1.3-6.7); Neutrophils Percent Auto 72.2 % (45.5-73.1); Platelet Count Result 113 k/mm3 (150-375); Red Blood Count 4.41 M/mm3 (4.6-6.20); Red Cell Distribution Width 13.1 % (11.5-14.5); White Blood Count 11.4 K/mm3 (4.5-10.0)
[2023-11-10] MEDS: LORazepam INJ (*CRX) 2 MG/ML VIAL IV PUSH (02:09)
[2023-11-10] MEDS: METOCLOPRAMIDE HCL INJ 10 MG/2 ML VIAL IV PUSH (02:09)
[2023-11-10 02:15] LABS: INR 0.9; Prothrombin Time 12.4 Seconds (11.1-14.7)
[2023-11-10 02:16] LABS: Partial Thromboplastin Time 24.8 Seconds (22.3-36.8)
[2023-11-10] MEDS: THIAMINE HCL 200 MG/2 ML VIAL 100 MG IV PUSH (02:17)
[2023-11-10] MEDS: SODIUM CHLORIDE 0.9% IV 1,000 ML 999 ML IV CONT (02:17)
[2023-11-10] MEDS: CYCLOBENZAPRINE HCL 10 MG TABLET PO (02:17)
[2023-11-10 02:28] LABS: Alanine Aminotransferase 23 U/L (6-50); Albumin Level 4.5 g/dL (3.5-5.1); Alkaline Phosphatase 72 U/L (38-126); Anion Gap 11 mmol/L (4-12); Aspartate Amino Transferase 33 U/L (17-59); Bilirubin,Total 0.8 mg/dL (0.2-1.3); Blood Urea Nitrogen 16 mg/dL (9-20); Calcium 9.4 mg/dL (8.4-10.2); Carbon Dioxide 25 mmol/L (22-30); Chloride 102 mmol/L (98-107); Estimated CRCL calculation 89 ml/min; Estimated Glomerular Filt Rate > 60; Glucose 104 mg/dL (65-110); Lipase 177 U/L (23-300); Potassium 3.9 mmol/L (3.4-5.0); Sodium 138 mmol/L (137-145)
[2023-11-10 02:38] LABS: Troponin I < 0.012 ng/mL (0.000-0.034)
[2023-11-10 03:35] VITALS: BP 119/68; PULSE 72; RESP 18; O2SAT 96
[2023-11-10 04:36] VITALS: BP 107/71; PULSE 77; RESP 17; O2SAT 97
--- NOTE | 2023-11-10 04:43 | ECG_ITS ---
Test Date: 2023-11-10 04:46:12 Measurements Intervals [place] Rate: 70 P: -41 [place]: 124 QRS: -45 QRSD: 89 T: -1 QT: 395 QTc: 428 Interpretive Statements SINUS RHYTHM LEFT ANTERIOR FASCICULAR BLOCK BORDERLINE T WAVE ABNORMALITY- INFERIOR LEADS ABNORMAL ECG Compared to ECG 11/10/2023 01:54:40 Left anterior fascicular block now present Electronically Signed On 11-10-2023 06:56:35 CDT by Tyler Roger D.O.
[2023-11-10 05:14] LABS: Troponin I < 0.012 ng/mL (0.000-0.034)
[2023-11-10 05:39] VITALS: BP 118/80; PULSE 74; RESP 15; O2SAT 98
== END 2023-11-10 05:40 | disposition home or self-care (01) ==
PROVIDERS: Emergency Provider Emergency Medicine; PCP Physician Assistant
DX: S16.1XXA Strain of muscle, fascia and tendon at neck level, initial encounter (principal); R07.9 Chest pain, unspecified; W19.XXXA Unspecified fall, initial encounter; F41.9 Anxiety disorder, unspecified; E78.5 Hyperlipidemia, unspecified; I10 Essential (primary) hypertension; F17.210 Nicotine dependence, cigarettes, uncomplicated
CPT/HCPCS: 36415; 71046; 80053; 83690; 84484; 85025; 85055; 85610; 85730; 93005; 96361; 96374; 96375; 99284; A9270; J2060; J2765; J3411; J7030

== ENCOUNTER 2025-02-13 19:36 | Emergency (ER) | payer OTHER, SELFPAY ==
[2025-02-13] VITALS (9 sets, daily range): BP systolic 114–153; BP diastolic 67–96; PULSE 65–85; RESP 13–18; TEMP 36.9; O2SAT 95–99
--- NOTE | ~2025-02-13 | XR_ITS ---
EXAMINATION: XR chest 1V portable DATE: 02/13/2025 20:37 INDICATION: Weakness. TECHNIQUE: A single frontal view of the chest was obtained. COMPARISON: Chest x-ray of 11/10/2023 FINDINGS: Heart size is normal. Lungs are clear. Samantha and mediastinum are normal. IMPRESSION: 1. No acute findings. Reviewed, dictated and finalized at location [facility]. [facility] IMPRESSION: 1. No acute findings.
--- NOTE | ~2025-02-13 | CT_ITS ---
EXAMINATION: CTA brain carotid DATE: 02/13/2025 21:47 INDICATION: Altered mental status. TECHNIQUE: Computed tomographic angiography (CTA) of the head was performed without and with 100 mL Omnipaque-350 intravenous contrast. CTA of the neck was performed with intravenous contrast. Automated exposure control and iterative reconstruction technique were employed. The dose-length product was 2312.08 mGy- cm. Maximum intensity projection and volume rendered 3D-reconstructions were created by the technologist on a separate workstation. COMPARISON: Head CT 05/18/2018 FINDINGS: HEAD CTA: There is no intracranial hemorrhage, acute infarction, or abnormal intracranial mass lesion. The ventricles are normal in size. The orbits are normal. There is mild mucosal thickening in the paranasal sinuses. The mastoid air cells are normal. The vertebral arteries are codominant. There is no significant stenosis of basilar artery or the posterior cerebral arteries. There is no significant stenosis of the intracranial internal carotid arteries or anterior or middle cerebral arteries. The posterior communicating arteries are normal. There is no aneurysm. NECK CTA: There is no significant stenosis of the vertebral arteries. There is no visible plaque in the proximal internal carotid arteries. There is 0% stenosis of the proximal right internal carotid artery relative to normal distal artery lumen diameter (NASCET criteria). There is 0% stenosis of the proximal left internal carotid artery relative to normal distal artery lumen diameter. There is severe cervical spondylosis. IMPRESSION: 1. Normal brain. 2. No aneurysm or significant intracranial arterial stenosis. 3. 0% stenosis of the proximal internal carotid arteries relative to normal distal artery lumen diameters (NASCET criteria). Reviewed, dictated and finalized at location E. BRUS[facility] IMPRESSION: 1. Normal brain. 2. No aneurysm or significant intracranial arterial stenosis. 3. 0% stenosis of the proximal internal carotid arteries relative to normal dis calin artery lumen diameters (NASCET criteria).
--- NOTE | 2025-02-13 19:59 | ECG_ITS ---
Test Date: 2025-02-13 20:11:14 Measurements Intervals [place] Rate: 72 P: 60 [place]: 159 QRS: -35 QRSD: 79 T: 21 QT: 393 QTc: 432 Interpretive Statements SINUS RHYTHM LEFT AXIS DEVIATION BASELINE ARTIFACT- I, II, AVR, AVL, AVF, V1 BORDERLINE ECG Compared to ECG 11/10/2023 04:46:12 LEFT ANTERIOR FASCICULAR BLOCK NO LONGER PRESENT Electronically Signed On 02-13-2025 20:38:08 EMPLOYEE RELATIONS REPRESENTATIVE by Tyler Roger D.O.
[2025-02-13 20:27] LABS: Hematocrit 36.8 % (42.0-52.0); Hemoglobin 12.8 g/dL (14.0-18.0); Immature Granulocyte Percent A 0.3 % (0-0.5); Immature Platelet Fraction Pct 8.5 % (0.9-11.2); Lymphocytes Absolute Auto 2.33 K/mm3 (0.9-3.2); Mean Corpuscular HGB Conc 34.8 g/dl (32-36); Mean Corpuscular Hemoglobin 32.6 pg (26-34); Mean Corpuscular Volume 93.6 fl (80-100); Nucleated Red Blood Cells Absolute Auto 0.000 K/mm3 (0.0-0.012); Nucleated Red Blood Cells Perc 0.0 % (0.0-0.2); Platelet Count Result 52 k/mm3 (150-375); Red Blood Count 3.93 M/mm3 (4.6-6.20); White Blood Count 9.6 K/mm3 (4.5-10.0)
[2025-02-13 20:36] LABS: Schistocytes None Seen
[2025-02-13 20:38] LABS: Alanine Aminotransferase 54 U/L (6-50); Albumin Level 4.5 g/dL (3.5-5.1); Alkaline Phosphatase 79 U/L (38-126); Anion Gap 7 mmol/L (4-12); Aspartate Amino Transferase 62 U/L (17-59); Bilirubin,Total 1.3 mg/dL (0.2-1.3); Blood Urea Nitrogen 20 mg/dL (9-20); Calcium 9.9 mg/dL (8.4-10.2); Carbon Dioxide 23 mmol/L (22-30); Chloride 107 mmol/L (98-107); Estimated CRCL calculation 97 ml/min; Estimated Glomerular Filt Rate > 60; Glucose 101 mg/dL (65-110); Potassium 3.8 mmol/L (3.4-5.0); Sodium 137 mmol/L (137-145); Total Protein 7.4 g/dL (6.3-8.2)
--- NOTE | 2025-02-13 20:51 | ED_ITS ---
HPI - Alcohol General Chief Complaint: Alcohol Stated Complaint: difficulty with speech, confusion since 514 Time Seen by Provider: 02/13/25 20:27 Source: patient Mode of arrival: ambulatory Limitations: no limitations History of Present Illness HPI narrative: This is a 49-year-old male with history of alcohol dependence, GERD hypertension hyperlipidemia who presents to the ED for altered mental status. Patient states that he was just discharged 2 days ago from [facility] after he was admitted for alcohol withdrawal. He was door-in yesterday and drank 5 shooters liver he was feeling okay until a few hours ago when he became more shaky and had some tingling in his hands. He also felt a little confused. Denies fever nausea chills chest pain, shortness of breath, headache, changes in vision. Related Data Home Medications ?Medication ?Instructions ?Recorded ?Confirmed ?Last Taken ?Type pravastatin 20 mg tablet 20 mg PO HS 06/28/21 3 Unknown History hydroxyzine HCl 25 mg tablet 25 mg PO TID PRN Anxiety 07/01/21 12/21/22 Unknown History venlafaxine 37.5 mg 37.5 mg PO HS 07/01/2112/21 Unknown History capsule,extended release 24 hr folic acid 1 mg tablet 1 mg PO DAILY 05/21/2212/21 Unknown History thiamine HCl (vitamin B1) 100 mg 100 mg PO DAILY 05/2112/21/22 Unknown History tablet escitalopram oxalate 20 mg tablet 20 mg PO DAILY 12/2412/24/22 Unknown History Allergies Allergy/AdvReac Type Severity Reaction Status Date / Time aspirin Allergy Severe throat Verified 01/25/23 15:20 swelling latex AdvReac Mild Rash Verified 01/25/23 15:20 Review of Systems 2 Review of Systems: Gen.: Denies fevers or chills Eyes: Denies eye pain or visual change ENT: Denies congestion Respiratory: Denies shortness of breath or cough CV: Denies chest pain or palpitations GI: Denies abdominal pain nausea, emesis or diarrhea denies burning, urgency, frequency or hematuria Musculoskeletal: Denies back pain or muscle pain Neuro: Denies numbness, tingling, weakness or focal weakness Skin: Denies rash Except as documented, all other systems reviewed and negative PMFSH Past Medical History Medical History Tobacco abuse Alcohol dependence Thrombocytopenia Helicobacter pylori (H. pylori) Right foot drop Vocal cord polyps Pancreatitis (~05/22/22) Lipoma of back Hyperlipidemia Anxiety Hypertension Surgical History Surgical History History of vocal cord polypectomy Status post excision of lipoma Family History Family History Father Diabetes mellitus Heart disease FH: CABG (coronary artery bypass surgery) Cancer Hypertension Mother Heart disease Chronic obstructive pulmonary disease Hypertension Congestive heart failure Sibling Hypertension Social History Social History Social History: The patient currently lives with his mother. He works for [employer]. He is . Surrogate medical decision maker: Cheyenne Seymour, mother. Code status: Full code. Smoking packs per day: 1 Smoking cigarettes per day: 20.0 Years smoked: 35 Smoking pack-years: 35.00 Smoking status: Heavy tobacco smoker Tobacco type: cigarettes Second hand tobacco smoke exposure: Yes Smoking end date: 03/06/11 Alcohol intake: current Drinks per week: 20 Alcohol use details: Drinks a pt of whiskey or a 6 pack most days of the week, sometimes won't drink for a couple months and sometimes he will drink more than that. Substance use: current Substance use type: marijuana Other substance usage details: Rarely Last use: 05/03/22 Lack of Transportation: No Lack of Food: Never True Current Housing: I Have Housing Concerned About Future Housing: No Difficulty Paying Gas/Electric Bills: No Difficulty Paying for Meds: No Currently Unemployed: No Education: Grade School Difficulty w/ Childcare or Family Care: No Living arrangements: with family Spiritual care concerns: No Exam 2 Narrative: APPEARANCE: Mild distress, nontoxic, resting in bed EYES: EOMI HEENT: Normocephalic, atraumatic, OMM RESPIRATORY: No respiratory distress Clear to auscultation bilaterally with no rhonchi wheezing or rales. CARDIOVASCULAR: Regular rate and rhythm without murmurs rubs or gallops. ABDOMINAL: Soft, nontender, nondistended, no rebound or guarding MUSCULOSKELETAl: Moves all extremities. No clubbing, cyanosis or edema. NEURO: Awake and alert. Following commands, speech normal. Right extremity deficits hold per patient. Mild to moderate tremor to all extremities SKIN:: Warm, dry. No rashes lesions or abrasions PSYCHIATRIC: Anxious appearing, Course Vital Signs Vital signs: Vital Signs Temperature 98.4 F 02/13/25 19:42 Pulse Rate 85 02/13/25 19:42 Respiratory Rate 18 02/13/25 19:42 Blood Pressure 153/96 H 02/13/25 19:42 Pulse Oximetry 99 02/13/25 19:42 Oxygen Delivery Room Air 02/13/25 19:42 Temperature 98.4 F 02/13/25 19:42 Pulse Rate 65 02/13/25 23:31 Respiratory Rate 18 02/13/25 23:31 Blood Pressure 114/67 02/13/25 23:31 Pulse Oximetry 95 02/13/25 23:31 Oxygen Delivery Room Air 02/13/25 19:42 MDM MDM Narrative Medical decision making narrative: 49-year-old male Presenting for speech problems and weakness. On initial evaluation patient was in no acute distress afebrile, hemodynamic stable. Differentials include but are not limited to: Alcohol withdrawal, electrolyte abnormality, CVA, TIA, UTI Notable exam findings: Mild to moderate tremor, nonfocal neuro exam aside from baseline right-sided deficits I personally reviewed the patient's lab result. Notable lab findings: Mild anemia with hemoglobin at 12.8. Thrombocytopenic to 52. Mild transaminitis which is not new for the patient. UA clear. UDS positive for opiates. I personally reviewed the patient's images and interpret as follows: Chest x- ray: Normal cardiac silhouette, no consolidations, no pleural effusions, no pulmonary vascular congestion CT head and CTA head/neck is interpreted by Radiology: No acute intracranial abnormalities I personally reviewed the patient's EKGs: Normal sinus rhythm rate of 72, left axis deviation, normal intervals, no acute ST or T-wave changes Patient did have improvement of the symptoms without any intervention. Suspect some level of anxiety. Unlikely that this is alcohol withdrawal as he just was released from medically assisted alcohol withdrawal 2 days ago and he only had 5 drinks yesterday. He is otherwise at his baseline and was able to ambulate through the department without any difficulty. He was advised to follow-up with his PCP in the next week for re-evaluation. Patient was agreeable to this plan. Given strict return precautions. Differential Diagnosis Differential Diagnosis: Alcohol withdrawal, electrolyte abnormality, CVA, TIA, UTI Lab Data MDM Lab Attestation statement: I personally reviewed the patient's lab results. 02/13/25 20:16 02/13/25 20:16 Labs: Lab Results 02/13/25 02/13/25 Range/Units 20:16 21:21 WBC 9.6 (4.5-10.0) K/mm3 RBC 3.93 L (4.6-6.20) M/mm3 Hgb 12.8 L (14.0-18.0) g/dL Hct 36.8 L (42.0-52.0) % MCV 93.6 (80-100) fl MCH 32.6 (26-34) pg MCHC 34.8 (32-36) g/dl RDW 14.0 (11.5-14.5) % Plt Count 52 L D (150-375) k/mm3 MPV 10.8 H (7.4-10.4) fl Immature Gran % (Auto) 0.3 (0-0.5) % Neut % (Auto) 62.0 (45.5-73.1) % Lymph % (Auto) 24.2 (18.3-44.2) % [place] % (Auto) 10.8 H (2.6-8.5) % Eos % (Auto) 2.3 (0-4.4) % Baso % (Auto) 0.4 (0.2-1.2) % Lymph # (Auto) 2.33 (0.9-3.2) K/mm3 [place] # (Auto) 1.0 H (0.1-0.6) K/mm3 Eos # (Auto) 0.2 (0-0.3) K/mm3 Baso # (Auto) 0.0 (0.0-0.1) K/mm3 Abs Immat Gran (auto) 0.03 (0.00-0.031) K/mm3 Absolute Neuts (auto) 6.0 (1.3-6.7) K/mm3 Absolute Nucleated RBC 0.000 (0.0-0.012) K/mm3 Band Neutrophils % Not Reportable Nucleated RBC % 0.0 (0.0-0.2) % Platelet Estimate Decreased (Adequate) % Immature Plt Fraction 8.5 (0.9-11.2) % Schistocytes None seen Sodium 137 (137-145) mmol/L Potassium 3.8 (3.4-5.0) mmol/L Chloride 107 (98-107) mmol/L Carbon Dioxide 23 (22-30) mmol/L Anion Gap 7 (4-12) mmol/L BUN 20 (9-20) mg/dL Creatinine 0.78 (0.7-1.3) mg/dL Estim Creat Clear Calc 97 ml/min Estimated GFR > 60 (59 - ) Glucose 101 (65-110) mg/dL Calcium 9.9 (8.4-10.2) mg/dL Total Bilirubin 1.3 (0.2-1.3) mg/dL AST 62 H (17-59) U/L ALT 54 H (6-50) U/L Alkaline Phosphatase 79 (38-126) U/L Total Protein 7.4 (6.3-8.2) g/dL Albumin 4.5 (3.5-5.1) g/dL Urine Color Yellow (Yellow) Urine Appearance Clear (Clear) Urine pH 5.5 (5.0-9.0) Ur Specific [place] 1.016 (1.001-1.035) Urine Protein Negative (Negative) mg/dL Urine Glucose (UA) Negative (Negative) mg/dL Urine Ketones Trace H (Negative) mg/dL Ur Blood (Man) Negative (Negative) Urine Nitrate Negative (Negative) Urine Bilirubin Negative (Negative) Urine Urobilinogen 0.2 (<2.0) mg/dL Leukocyte Esterase Rfl Negative (Negative) RITA/UL Urine Opiates Screen Positive A (Negative) Urine Methadone Screen Negative (Negative) Ur Barbiturates Screen Negative (Negative) Ur Phencyclidine Scrn Negative (Negative) Ur Amphetamine Screen Negative (Negative) U Benzodiazepines Scrn Negative (Negative) Urine Cocaine Screen Negative (Negative) U Cannabinoids Screen Negative (Negative) Ethyl Alcohol < 10 (<10) mg/dL Imaging Data Radiologist's impression: ITS Impressions Chest X-Ray 02/13/25 20:39 IMPRESSION: 1. No acute findings. Discharge Plan Discharge Clinical Impression: Transient weakness of lower extremity, Thrombocytopenia Alcohol dependence Qualifiers: Substance use status: uncomplicated Qualified Code(s): F10.20 - Alcohol dependence, uncomplicated Patient Disposition: Home Condition: Stable Instructions: Antibiotic Form, Alcohol Dependence (ED) Additional Instructions: Follow-up with your PCP in the next week for re-evaluation. Return to the ED for any new worsening symptoms. Patient Language: Japanese Prescriptions: No Action pravastatin 20 mg tablet 20 mg PO HS amlodipine [Norvasc] 5 mg Tablet 5 mg PO QAM Qty: 30 1RF metoprolol tartrate 25 mg Tablet 25 mg PO Q12HR Qty: 60 1RF thiamine HCl (vitamin B1) 100 mg tablet 100 mg PO DAILY folic acid 1 mg tablet 1 mg PO DAILY escitalopram oxalate 20 mg tablet 20 mg PO DAILY hydroxyzine HCl 25 mg tablet 25 mg PO TID PRN (Reason: Anxiety) venlafaxine 37.5 mg capsule,extended release 24hr 37.5 mg PO HS Follow-up/Referrals: PHYSICIAN,LOAD OUT SUPERVISOR [Primary Care Provider, Internal Medicine]
[2025-02-13 21:29] LABS: Add Urine Microscopic? NO; Appearance Urine Clear (Clear); Glucose Urine UA Negative (Negative); Leukocyte Esterase Ur Negative LEU/UL (Negative); Nitrate Urine Negative (Negative); Specific Grav Ur 1.016 (1.001-1.035)
[2025-02-13 21:49] LABS: Cannabinoid Screen Urine Negative (Negative)
== END 2025-02-13 23:39 | disposition home or self-care (01) ==
PROVIDERS: Emergency Medicine; Emergency Provider Student in an Organized Health Care Education/Training Program
DX: M62.81 Muscle weakness (generalized) (principal); D69.6 Thrombocytopenia, unspecified; F10.20 Alcohol dependence, uncomplicated; I10 Essential (primary) hypertension; E78.5 Hyperlipidemia, unspecified; F17.210 Nicotine dependence, cigarettes, uncomplicated
CPT/HCPCS: 36415; 70496; 70498; 71045; 80053; 80307; 81003; 82077; 85025; 85055; 93005; 99284; A9270; Q9967